=== PATIENT | male | born 1925 | race African-American/Black ===

== ENCOUNTER 2016-08-22 15:08 | Emergency (ER) | payer MEDICARE, OTHER ==
[2016-08-22] MEDS ORDERED: MECLIZINE HCL 25 MG TABLET PO ONE (15:53)
[2016-08-22 16:08] LABS: Hemoglobin 8.9 gm/dL (13.5-18.0); Mean Cell Volume 92.1 fl (78-100); Mean Corpuscular Hemoglobin 29.3 pg (27-31); Mean Corpuscular Hgb Conc 31.8 g/dl (32-36); Mean Platelet Volume 9.7 fl (6.0-9.5); Neutrophil # 5.8 K/mm3 (1.3-6.0); Neutrophil % 69.2 % (42-75.0); Platelet Count 135 K/mm3 (150-450); Red Blood Count 3.04 M/mm3 (4.7-6.0); Red Cell Distribution Width 14.5 % (11.5-14.0); White Blood Count 8.4 K/mm3 (4.0-10.5)
--- OUTSIDE RECORDS SUMMARY | 2016-08-22 16:16 | XMS REPORT | Continuity of Care Document ---
:1925 Author Organization [employer] [place] [address] Care Team Providers Name Role Phone Unavailable Primary Care Provider Unavailable Source Comments This disclosure is being made pursuant to the Smartj[employer] program and maynot contain all information available regarding this patient.[employer] Active Allergies and Adverse Reactions Not on File Current Medications Be aware that medications may not be up to date as of this document. Alwaysverify current medications with the patient. Not on file Active Problems Not on file Social History Tobacco Use Types Packs/Day Years Used Date Never Assessed Plan of Care Health Maintenance Due Date Last Done Comments Retired-Pertussis Vaccine Adult 11/02/1944 Retired-Tetanus Vaccine Adult 11[birth year]02/1944 Well Adult Visit 11/02/1977 Zoster Vaccine 60+ 1987 Retired-Pneumococcal 23 Vaccine-65+ yo 11/02/1992 Retired-INFLUENZA VACCINE 12/24/2014 Results from Last 3 Months Not on file
--- OUTSIDE RECORDS SUMMARY | 2016-08-22 16:17 | XMS REPORT | Continuity of Care Document ---
:1925 Author Organization [facility] ([facility]) Address [place] [address] Phone [phone] Care Team Providers Name Role Phone Provider, No-Primary Care Primary Care Provider Unavailable Source Comments This disclosure is being made pursuant to the Care Everywhere program, applicable federal and state laws, and may not contain all informaitonavailable regarding this patient.[facility] ([facility]) Active Allergies and Adverse Reactions Allergen Noted Date Severity Reactions Comments Carbamazepine Unknown Gluten OTHER celiac sprue Phenytoin Unknown Terbinafine Unknown Current Medications Prescription Sig. Disp. Refills Start Date End Date Status hydrALAZINE 100 mg Take 100 mg by mouth Active tablet 4 times daily. insulin glargine inject 12 Units Active (LanTUS) 100 unit/mL subcutaneously at injection vial bedtime. irbesartan 300 mg Take 300 mg by mouth Active tablet daily. lidocaine (LIDODERM) 5 apply 1 Patch on the Active % patch skin daily. Apply for 12 hours and remove for 12 hours, then repeat cycle. multivitamin with Take 1 Tab by mouth Active minerals tablet daily. nitroglycerin 0.[address] 0.3 mg under Active SL tablet the tongue every 5 minutes as needed. potassium chloride 10 Take 10 mEq by mouth Active mEq XR capsule daily. atorvastatin 80 mg Take 80 mg by mouth Active tablet at bedtime. carBAMazepine Take 400 mg by mouth Active (CARBATROL) 100 mg CR at bedtime. capsule CETIRIZINE HCL Take 5 mg by mouth. Active (CETIRIZINE PO) Fluticasone Furoate use 2 Sprays into the Active (VERAMYST) 27.5 nose daily. mcg/Actuation SpSn folic acid 1 mg tablet Take 1 mg by mouth Active daily. topiramate 100 mg Take 100 mg by mouth Active tablet 2 times daily. torsemide 10 mg tablet Take 10 mg by mouth Active daily. bimatoprost (LUMIGAN) instill 1 Drop onto Active 0.03 % ophthalmic both eyes every solution evening. metoPROLol 50 mg Take 50 mg by mouth 2 Active tablet times daily. Noon and bedtime HYDROcodone-acetaminop Take 1 Tab by mouth 3 Active hen 7.5-500 mg per times daily. tablet iron polysaccharide Take 150 mg by mouth Active complex (NIFEREX) 150 daily. mg capsule ALPRAZolam 0.25 mg Take 0.25 mg by mouth Active tablet 3 times daily as needed. budesonide-formoterol Use 2 Puffs by Active (SYMBICORT) 160-4.5 inhalation 2 times mcg/Actuation inhaler daily. nitroglycerin 0.4 apply 1 Patch on the Active mg/hr patch skin daily. Remove at HS glimepiride 1 mg Take 1 mg by mouth Active tablet Every morning. albuterol (PROVENTIL Use 1-2 Puffs by Active HFA) 90 mcg/Actuation inhalation every 6 inhaler hours as needed. prednisoLONE acetate instill 1 Drop onto Active (PRED FORTE) 1 % the left eye 2 times ophthalmic suspension daily. pyridostigmine Take 1 Tab by mouth 3 90 Tab 0 08/26/2011 Active (MESTINON) 60 mg times daily. tablet Indications: Myasthenia Gravis Active Problems Problem Noted Date AORTIC SCLEROSIS 08/25/2011 Myasthenia gravis 08/25/2011 Fall 08/25/2011 HTN (hypertension) 08/25/2011 Myasthenia gravis in crisis 08/25/2011 Chronic kidney disease, stage III (moderate) 01/25/2008 Chronic kidney disease, unspecified 01/25/2008 Resolved Problems Problem Noted Date Resolved Date Myasthenia gravis in crisis 08/24/2011 08/25/2011 Immunizations Name Dates Previously Given Next Due Influenza, unspecified 02/24/2008,03/23/2006,01/23/2003 Pneumococcal, unspecified 03/23/2006,01/24/2000 Social History Tobacco Use Types Packs/Day Years Used Date Never Assessed Last Filed Vital Signs Vital Sign Reading Time Taken Blood Pressure 178/70 08/26/2011 8:00 AM CDT Pulse 62 08/26/2011 8:00 AM CDT Temperature 36.4 C (97.5 F) 08/26/2011 8:00 AM CDT Respiratory Rate 16 08/26/2011 3:15 PM CDT Height 1.753 m (5' 9") 08/25/2011 10:15 PM CDT Weight 117.5 kg (259 lb 0.7 oz) 08/26/2011 9:30 AM CDT Body Mass Index 38.24 08/26/2011 9:30 AM CDT Oxygen Saturation 100% 08/26/2011 8:00 AM CDT Plan of Care Health Maintenance Due Date Last Done Comments Hepatitis B Vaccine (1 of 3 1925 - Primary Series) Tdap Vaccine 11/02/1938 Td Vaccine 11/02/1945 Zoster Vaccine 1987 Pneumococcal Vaccine (1 of 2 11/02/1992 - PCV13) Influenza Vaccine: Seasonal 11/24/2015 02/24/2008, (#1) 03/23/2006, 01/23/2003 Lipid Disorder Screening 08/23/2016 08/24/2011, Additional history exists 04/28/2007, 10/13/2006 Results from Last 3 Months Not on file
[2016-08-22] MEDS ORDERED: MECLIZINE HCL 25 MG TABLET ONE (16:18)
[2016-08-22 16:22] LABS: Albumin * 2.9 gm/dl (3.4-5.0); Anion Gap 13.8 mmol/L (6.8-13.8); BUN/Creatinine Ratio 17.6 (9.0-21.6); Bilirubin, Total 0.2 mg/dL (0.0-1.1); Ca. Corrected For Albumin 9.1 mg/dL (8.4-10.2); Calcium * 8.5 mg/dL (7.9-10.9); Carbon Dioxide 25.7 mmol/L (24-32.6); Magnesium 1.9 mg/dL (1.2-2.8); Potassium 3.5 mmol/L (3.4-4.6); Total Protein 7.1 gm/dL (6.2-8.2)
[2016-08-22 17:09] LABS: Urine Appearance Clear; Urine Bacteria None Seen; Urine Bilirubin Negative (NEGATIVE); Urine Blood Negative /ul (NEGATIVE); Urine Color Yellow; Urine Ketone Negative (NEGATIVE); Urine Nitrite Negative (NEGATIVE); Urine Protein Negative (NEGATIVE); Urine RBC None Seen /hpf (0-5); Urine Urobilinogen Normal (NORMAL); Urine WBC None Seen /hpf (0-5)
[2016-08-22] MEDS ORDERED: NEOMY SULF/POLYMYX B SULF/HC 100 DROP BTL EACH EAR ONE (17:43)
[2016-08-22] MEDS ORDERED: NEOMY SULF/POLYMYX B SULF/HC 100 DROP BTL ONE (17:43)
--- NOTE | 2016-08-22 17:44 | ERNOTE ---
Trauma/Assault HPI - General Stated Complaint: RT EAR PAIN, DIZZINESS Time Seen by Provider: 08/22/16 15:42 Source: patient, family Exam Limitations: hard of hearing - Immun/Allergies/Home Medications Immunizations: IMMUNIZATION HX Immunizations Up to Date No History of Influenza Vaccine No Hx Pneumococcal Vaccination No Allergies/Adverse Reactions: Allergies lamotrigine [From Lamictal] Allergy (Verified 08/22/16 15:26) metronidazole [From Flagyl] Allergy (Verified 08/22/16 15:26) omeprazole [From Prilosec] Allergy (Verified 08/22/16 15:26) omeprazole magnesium [From Prilosec] Allergy (Verified 08/22/16 15:26) ranitidine HCl [From Zantac] Allergy (Verified 08/22/16 15:26) valsartan [From Diovan] Allergy (Verified 08/22/16 15:26) phenytoin sodium [From Dilantin] Adverse Reaction (Unknown, Verified 08/22/16 15 :26) phenytoin sodium extended [From Dilantin] Adverse Reaction (Unknown, Verified 15:26) terbinafine HCl [From Lamisil] Adverse Reaction (Unknown, Verified 08/22/16 15: 26) Home Medications: HOME MEDICATIONS ALPRAZolam [Xanax] 0.25 mg PO TID PRN 04/16/14 [Last Taken Unknown] Albuterol Sulfate [Ventolin Hfa] 1 puff IH Q4H PRN 04/16/14 [Last Taken Unknown] Aspirin [Aspirin Chewable] 81 mg PO DAILY 04/16/14 [Last Taken Unknown] Atorvastatin Calcium [Lipitor] 80 mg PO DAILY 04/16/14 [Last Taken Unknown] Bimatoprost [Lumigan 0.03% Ophthalmic Solution] 1 drop EACHEYE QPM 04/16/14 [ Last Taken Unknown] Calcitriol 0.25 mcg PO 3XW 04/16/14 [Last Taken Unknown] Carbamazepine [Carbatrol] 400 mg PO HS 04/16/14 [Last Taken Unknown] Cyanocobalamin [Vitamin B-12] 1,000 mcg PO DAILY 04/16/14 [Last Taken Unknown] Dorzolamide HCl [Trusopt] 1 drop EACHEYE TID 04/16/14 [Last Taken Unknown] Fluticasone Furoate [Veramyst] 2 spray NS DAILY 04/16/14 [Last Taken Unknown] Folic Acid 1 mg PO DAILY 04/16/14 [Last Taken Unknown] Hydralazine HCl 100 mg PO QID 04/16/14 [Last Taken Unknown] Hydrocodone/Acetaminophen [Hydrocodon-Acetaminoph 7.5-325] 1 tab PO TID PRN [Last Taken Unknown] Insulin Glargine,Hum.rec.anlog [Lantus Solostar] 16 unit SQ HS 04/16/14 [Last Taken Unknown] Insulin Glargine,Hum.rec.anlog [Lantus Solostar] 18 unit SQ QAM 04/16/14 [Last Taken Unknown] Ipratropium/Albuterol Sulfate [Combivent Respimat Inhal [place]] 1 puff IH QID PRN 04/16/14 [Last Taken Unknown] Latanoprost [Xalatan] 1 drop EACHEYE HS 04/16/14 [Last Taken Unknown] Metoprolol Tartrate [Lopressor] 25 mg PO BID 04/16/14 [Last Taken Unknown] Multivitamin [Multi-Vitamin Daily] 1 each PO DAILY 04/16/14 [Last Taken Unknown] Nitroglycerin [Nitroglycerin Patch] 1 each TD QAM 04/16/14 [Last Taken Unknown] Pyridostigmine [place] [Mestinon] 60 mg PO TID 04/16/14 [Last Taken Unknown] Terazosin HCl 10 mg PO HS 04/16/14 [Last Taken Unknown] Topiramate [Topamax] 37.5 mg PO BID 04/16/14 [Last Taken Unknown] Acetaminophen [Tylenol] 650 mg PO Q8H PRN 30 Days 04/23/14 [Last Taken Unknown] Bisacodyl [Dulcolax] 10 mg PO DAILY PRN #30 tablet 04/23/14 [Last Taken Unknown] Budesonide/Formoterol Fumarate [Symbicort 160-4.5 Mcg Inhaler] 2 puff IH BID #0 04/23/14 [Last Taken Unknown] Cholecalciferol (Vitamin D3) [Vitamin D3] 1,000 unit PO DAILY #30 capsule [Last Taken Unknown] Furosemide [Lasix] 40 mg PO DAILY@1200 #30 tablet 04/23/14 [Last Taken Unknown] Insulin Lispro [Humalog] 5 units SC AC #2 vial 04/23/14 [Last Taken Unknown] Lactobacillus Acidophilus [Bacid] 1 cap PO BID 30 Days 04/23/14 [Last Taken Unknown] Mineral Oil/Petrolatum,White [Eucerin] 1 appl TP BID 30 Days 04/23/14 [Last Taken Unknown] Nystatin [Mycostatin Powder] 1 appl TP TID 30 Days 04/23/14 [Last Taken Unknown] Potassium Chloride [Klor-Con 10] 10 meq PO DAILY #0 04/23/14 [Last Taken Unknown] Lisinopril [Prinivil] PO DAILY 08/22/16 [Last Taken Unknown] Meclizine HCl [Antivert] 25 mg PO TID PRN #20 tablet 08/22/16 [Last Taken Unknown] - History of Present Illness Narrative: Patient comes in for pain in the right ear from wax accumulation, chronic dizziness and numbness in his feet which are causing him to lose his balance and fall occasionally. The right ear pain and the wax had been ongoing for perhaps a month and he is trying to clean the ears out at home without success. Location Occurred: Reports: home Pain Location: Reports: other - right ear Method of Injury: Reports: fall - chronic falls from numbness in both feet Severity: mild Loss of Consciousness: Reports: no loss of consciousness Review of Systems - Review of Systems Constitutional: Present: See HPI EYE: Present: no symptoms reported ENT: Present: ear pain Respiratory: Present: no symptoms reported Cardiology: Present: no symptoms reported Gastrointestinal/Abdominal: Present: no symptoms reported Genitourinary: Present: no symptoms reported Musculoskeletal: Present: no symptoms reported Skin: Present: no symptoms reported Neurological: Present: no symptoms reported Endocrine: Present: no symptoms reported Hematologic/Lymphatic: Present: no symptoms reported Psych: Present: no symptoms reported - Patient's Past Medical History Patient History - Medical: Diabetes Type 1, Obesity, Renal Failure, Other - suspected diabetic neuropathy Patient History - Cardiac/Respiratory: CHF Patient History - Cancer: No Hx of Cancer Patient History - Surgical Procedures: Appendectomy, Cardiac stent Patient History - Other: None - Social History Living Situations: home Abuse History: No History of abuse Psych History: No pertinent hx Smoking Status: Never smoker Have you smoked in the past 12 months: No Alcohol Use: none Drug Use: none - Immunizations Immunizations Up to Date: No Hx Pneumococcal Vaccination: No History of Influenza Vaccine: No Physical Exam - Physical Exam General Appearance: Present: wd/wn, alert, mild distress Eye Exam: Normal inspection: bilateral, PERRL: bilateral Ears, Nose, Throat: Present: hearing decreased, cerumen impaction - primarily on the right hand side, normal pharynx Neck: Present: normal inspection, nontender Respiratory: Present: no respiratory distress, normal breath sounds, no accessory muscle use, chest nontender, lungs clear Cardiovascular/Chest: Present: regular rate, rhythm, no murmur, normal peripheral pulses Gastrointestinal/Abdominal: Present: normal bowel sounds, nontender, nondistended, soft, no organomegaly Rectal Exam: Present: deferred Back Exam: Present: normal inspection, normal range of motion Extremity Exam: Present: normal inspection, non-tender, no edema, normal range of motion Neurological Exam: Present: alert, oriented, normal mood/affect, other - numbness to both feet Skin Exam: Present: normal color, warm/dry Lymphatic Exam: Present: no adenopathy ED Progress - Results and Orders Patient's Lab Results:: I have reviewed the patient's lab results. - Vital Signs Patient's Vital Signs:: I have reviewed the patient's vital signs. Vital Signs: Vital Signs 08/22/16 08/22/16 15:19 16:43 Temperature 36.9 C Pulse Rate 65 64 Respiratory 16 Rate Blood Pressure 175/66 O2 Sat by Pulse 95 Oximetry - X-Ray X-Ray #1 X-Ray: chest Interpretation: Reviewed by me - CT/Ultrasound CT/Ultrasound Narrative: Head CT results reviewed - Progress/Reassessment Chief Complaint: Fall Progress:: Improved Plan - Plan Plan: The extensive cerumen impaction on the right-hand side and lesser cerumen impaction on the left side were both removed using water and hydrogen peroxide irrigation. Patient was given 25 mg of Antivert which helped the dizziness to a certain degree. I suspect that the cerumen impaction partially responsible for some of the dizziness that the patient was having. Patient appears to have diabetic neuropathy and I suspect this is at the heart of his frequent falls. I will refer the patient got back to Dr. Call for the management of the diabetic neuropathy. Departure Clinical Impression: Impacted cerumen of both ears, Vertigo Diabetic neuropathy Qualifiers: Diabetes mellitus type: type 2 Diabetes mellitus complication detail: diabetic mononeuropathy Qualified Code(s): E11.41 - Type 2 diabetes mellitus with diabetic mononeuropathy - Departure Disposition: Home self-care Condition: Good Instructions: Diabetic Neuropathy, Earwax Buildup, Vertigo, Qive-me-Wbio Prescriptions: Meclizine HCl [Antivert] 25 mg PO TID PRN #20 tablet PRN Reason: Vertigo
[2016-08-22 18:00] VITALS: BP 167/69
== END 2016-08-22 18:15 | disposition home or self-care (01) ==
LOC: ER 15:08
PROC: 3E1B78Z Irrigation of Ear using Irrigating Substance, Via Natural or Artificial Opening (ICD-10-PCS; principal; 2016-08-22)
PROC: 3E1B78Z Irrigation of Ear using Irrigating Substance, Via Natural or Artificial Opening (ICD-10-PCS; 2016-08-22)
DX: H61.23 Impacted cerumen, bilateral (principal); R42 Dizziness and giddiness; E11.41 Type 2 diabetes mellitus with diabetic mononeuropathy; N19 Unspecified kidney failure; I50.9 Heart failure, unspecified

== ENCOUNTER 2016-09-27 18:12 | Inpatient (IN) | payer MEDICARE, OTHER ==
--- NOTE | 2016-09-27 18:31 | ERNOTE ---
Neuro HPI ER Record Presenting Symptoms: weakness Time Seen by Provider: 09/27/16 18:22 Source: EMR, RN/MD Exam Limitations: clinical condition - pt is not verbal Immunizations: IMMUNIZATION HX Immunizations Up to Date Yes History of Influenza Vaccine Yes Hx Pneumococcal Vaccination Yes Allergies/Adverse Reactions: Allergies Allergy/AdvReac Type Severity Reaction Status Date / Time lamotrigine [From Lamictal] Allergy Verified 08/22/16 15:26 metronidazole [From Flagyl] Allergy Verified 08/22/16 15:26 omeprazole [From Prilosec] Allergy Verified 08/22/16 15:26 omeprazole magnesium Allergy Verified 08/22/16 15:26 [From Prilosec] ranitidine HCl [From Zantac] Allergy Verified 08/22/16 15:26 valsartan [From Diovan] Allergy Verified 08/22/16 15:26 phenytoin sodium AdvReac Unknown Verified 08/22/16 15:26 [From Dilantin] phenytoin sodium extended AdvReac Unknown Verified 08/22/16 15:26 [From Dilantin] terbinafine HCl AdvReac Unknown Verified 08/22/16 15:26 [From Lamisil] Home Medications: HOME MEDICATIONS ALPRAZolam [Xanax] 0.25 mg PO TID PRN 04/16/14 [Last Taken Unknown] Albuterol Sulfate [Ventolin Hfa] 1 puff IH Q4H PRN 04/16/14 [Last Taken Unknown] Aspirin [Aspirin Chewable] 81 mg PO DAILY 04/16/14 [Last Taken Unknown] Atorvastatin Calcium [Lipitor] 80 mg PO DAILY 04/16/14 [Last Taken Unknown] Bimatoprost [Lumigan 0.03% Ophthalmic Solution] 1 drop EACHEYE QPM 04/16/14 [ Last Taken Unknown] Calcitriol 0.25 mcg PO 3XW 04/16/14 [Last Taken Unknown] Carbamazepine [Carbatrol] 400 mg PO HS 04/16/14 [Last Taken Unknown] Cyanocobalamin [Vitamin B-12] 1,000 mcg PO DAILY 04/16/14 [Last Taken Unknown] Dorzolamide HCl [Trusopt] 1 drop EACHEYE TID 04/16/14 [Last Taken Unknown] Fluticasone Furoate [Veramyst] 2 spray NS DAILY 04/16/14 [Last Taken Unknown] Folic Acid 1 mg PO DAILY 04/16/14 [Last Taken Unknown] Hydralazine HCl 100 mg PO QID 04/16/14 [Last Taken Unknown] Hydrocodone/Acetaminophen [Hydrocodon-Acetaminoph 7.5-325] 1 tab PO TID PRN [Last Taken Unknown] Insulin Glargine,Hum.rec.anlog [Lantus Solostar] 16 unit SQ HS 04/16/14 [Last Taken Unknown] Insulin Glargine,Hum.rec.anlog [Lantus Solostar] 18 unit SQ QAM 04/16/14 [Last Taken Unknown] Ipratropium/Albuterol Sulfate [Combivent Respimat Inhal [place]] 1 puff IH QID PRN 04/16/14 [Last Taken Unknown] Latanoprost [Xalatan] 1 drop EACHEYE HS 04/16/14 [Last Taken Unknown] Metoprolol Tartrate [Lopressor] 25 mg PO BID 04/16/14 [Last Taken Unknown] Multivitamin [Multi-Vitamin Daily] 1 each PO DAILY 04/16/14 [Last Taken Unknown] Nitroglycerin [Nitroglycerin Patch] 1 each TD QAM 04/16/14 [Last Taken Unknown] Pyridostigmine [place] [Mestinon] 60 mg PO TID 04/16/14 [Last Taken Unknown] Terazosin HCl 10 mg PO HS 04/16/14 [Last Taken Unknown] Topiramate [Topamax] 37.5 mg PO BID 04/16/14 [Last Taken Unknown] Acetaminophen [Tylenol] 650 mg PO Q8H PRN 30 Days 04/23/14 [Last Taken Unknown] Bisacodyl [Dulcolax] 10 mg PO DAILY PRN #30 tablet 04/23/14 [Last Taken Unknown] Budesonide/Formoterol Fumarate [Symbicort 160-4.5 Mcg Inhaler] 2 puff IH BID #0 04/23/14 [Last Taken Unknown] Cholecalciferol (Vitamin D3) [Vitamin D3] 1,000 unit PO DAILY #30 capsule [Last Taken Unknown] Furosemide [Lasix] 40 mg PO DAILY@1200 #30 tablet 04/23/14 [Last Taken Unknown] Insulin Lispro [Humalog] 5 units SC AC #2 vial 04/23/14 [Last Taken Unknown] Lactobacillus Acidophilus [Bacid] 1 cap PO BID 30 Days 04/23/14 [Last Taken Unknown] Mineral Oil/Petrolatum,White [Eucerin] 1 appl TP BID 30 Days 04/23/14 [Last Taken Unknown] Nystatin [Mycostatin Powder] 1 appl TP TID 30 Days 04/23/14 [Last Taken Unknown] Potassium Chloride [Klor-Con 10] 10 meq PO DAILY #0 04/23/14 [Last Taken Unknown] Lisinopril [Prinivil] PO DAILY 08/22/16 [Last Taken Unknown] Meclizine HCl [Antivert] 25 mg PO TID PRN #20 tablet 08/22/16 [Last Taken Unknown] - History of Present Illness Narrative: pt is here for altered mental status as noted by EMS who was called for a lift assist Review of Systems - Review of Systems Constitutional: Present: weakness, fatigue, malaise EYE: Present: no symptoms reported ENT: Present: no symptoms reported Respiratory: Present: no symptoms reported Cardiology: Present: no symptoms reported Gastrointestinal/Abdominal: Present: no symptoms reported Genitourinary: Present: no symptoms reported Musculoskeletal: Present: no symptoms reported Neurological: Present: other - this patient appears somnolent but I'm able to speak with him when I speak to him he opens his eyes he does mumble but he seemed very weak. He denies any complaints. - Patient's Past Medical History Patient History - Medical: Diabetes Type 1, Obesity, Renal Failure, Other Patient History - Cardiac/Respiratory: CHF Patient History - Cancer: No Hx of Cancer Patient History - Surgical Procedures: Appendectomy, Cardiac stent Patient History - Other: None - Social History Living Situations: home Abuse History: No History of abuse Psych History: No pertinent hx Smoking Status: Never smoker Alcohol Use: none Drug Use: none - Immunizations Immunizations Up to Date: Yes Hx Pneumococcal Vaccination: Yes History of Influenza Vaccine: Yes Physical Exam - Physical Exam General Appearance: Present: other - elderly male who appears lethargic and tired membranes appear slightly dry Ears, Nose, Throat: Present: other - nares are patent, oral cavity is within normal limits, he has lots of purulent material from the right ear canal. left canal is patent. Neck: Present: normal inspection Respiratory: Present: no respiratory distress, normal breath sounds, no accessory muscle use, chest nontender, lungs clear Cardiovascular/Chest: Present: regular rate, rhythm Gastrointestinal/Abdominal: Present: normal bowel sounds, nondistended, soft Extremity Exam: Present: non-tender, normal range of motion, other - pt does have 3+ pitting edema bilaterally Neurological Exam: Present: other - upon arrival this patient is somewhat somnolent however when I speak with him he opens his eyes and follows commands his GCS is 15. Skin Exam: Present: normal color, warm/dry ED Progress - Results and Orders Patient's Lab Results:: I have reviewed the patient's lab results. - Vital Signs Patient's Vital Signs:: I have reviewed the patient's vital signs. Vital Signs: Vital Signs 09/27/16 09/27/16 18:14 18:24 Temperature 37.5 C Pulse Rate 77 77 Respiratory 20 Rate Blood Pressure 136/52 O2 Sat by Pulse 93 Oximetry - EKG EKG: NSR - the old Q waves in V1 and V2 V3 these findings are consistent with the previous EKG done on this patient - X-Ray X-Ray #1 X-Ray: chest - appears typical for CHF - Progress/Reassessment Chief Complaint: Altered Mental Status Plan - Plan Plan: This patient has anemia and fatigue and CHF and a newly diagnosed right sided nasopharyngeal mass Departure Clinical Impression: Nasopharyngeal mass Altered mental status Qualifiers: Altered mental status type: unspecified Qualified Code(s): R41.82 - Altered mental status, unspecified CHF exacerbation Qualifiers: Congestive heart failure type: unspecified congestive heart failure type Qualified Code(s): I50.9 - Heart failure, unspecified - Departure Disposition: [facility] Condition: Serious
--- OUTSIDE RECORDS SUMMARY | 2016-09-27 18:40 | XMS REPORT | Continuity of Care Document ---
:1925 Author Organization [facility] ([facility]) Address [place] [address] Phone [phone] Care Team Providers Name Role Phone Provider, No-Primary Care Primary Care Provider Unavailable Source Comments This disclosure is being made pursuant to the Care Everywhere program, applicable federal and state laws, and may not contain all informaitonavailable regarding this patient.[facility] ([facility]) Active Allergies and Adverse Reactions Allergen Noted [...]
--- OUTSIDE RECORDS SUMMARY | 2016-09-27 18:40 | XMS REPORT | Continuity of Care Document ---
:1925 Author Organization [facility] [place] [address] Care Team Providers Name Role Phone Unavailable Primary Care Provider Unavailable Source Comments This disclosure is being made pursuant to the [place] program and maynot contain all information available regarding this patient.[facility] Active Allergies and Adverse Reactions Not on [...]
[2016-09-27 18:53] LABS: Mean Cell Volume 89.1 fl (78-100); Mean Corpuscular Hemoglobin 28.6 pg (27-31); Mean Corpuscular Hgb Conc 32.1 g/dl (32-36); Mean Platelet Volume 9.1 fl (6.0-9.5); Neutrophil # 9.4 K/mm3 (1.3-6.0); Neutrophil % 80.9 % (42-75.0); Platelet Count 264 K/mm3 (150-450); Red Blood Count 2.66 M/mm3 (4.7-6.0); Red Cell Distribution Width 14.4 % (11.5-14.0); White Blood Count 11.7 K/mm3 (4.0-10.5)
[2016-09-27 18:56] LABS: Hematocrit 23.7 % (42.0-52.0); Hemoglobin 7.6 gm/dL (13.5-18.0)
[2016-09-27 19:12] LABS: Troponin I Less than 0.017 ng/ml (0.00-0.10)
[2016-09-27 19:13] LABS: ALT 16 U/L (19-67); AST 17 U/L (0-48); Albumin * 2.1 gm/dl (3.4-5.0); Alkaline Phosphatase * 99 U/L (50-170); Anion Gap 14.9 mmol/L (6.8-13.8); BNP * 3146 pg/mL (5-650); BUN/Creatinine Ratio 12.9 (9.0-21.6); Bilirubin, Total 0.2 mg/dL (0.0-1.1); Blood Urea Nitrogen 26 mg/dL (6-23); Ca. Corrected For Albumin 10.1 mg/dL (8.4-10.2); Calcium * 8.9 mg/dL (7.9-10.9); Carbon Dioxide 24.7 mmol/L (24-32.6); Chloride 106 mmol/L (97-106); Glucose * 122 mg/dL (70-110); Potassium 3.6 mmol/L (3.4-4.6); Sodium 142 mmol/L (132-142); Total Protein 7.3 gm/dL (6.2-8.2)
[2016-09-27 19:17] LABS: Urine Bilirubin Negative (NEGATIVE); Urine Blood Negative /ul (NEGATIVE); Urine Ketone Negative (NEGATIVE); Urine Nitrite Negative (NEGATIVE); Urine Protein 15 mg/dL (NEGATIVE); Urine Urobilinogen Normal (NORMAL); Urine pH 6.5 pH (5.0-7.0)
[2016-09-27 19:23] LABS: Urine Appearance Clear; Urine Bacteria None Seen; Urine Color Yellow; Urine RBC None Seen /hpf (0-5); Urine WBC None Seen /hpf (0-5)
[2016-09-27 19:29] LABS: Cocaine Ur Negative (NEGATIVE); Urine Barbiturate Negative (NEGATIVE); Urine Benzodiazepines Negative (NEGATIVE); Urine Opiates Positive (NEGATIVE); Urine PCP Negative (NEGATIVE); Urine THC Negative (NEGATIVE)
[2016-09-27] MEDS ORDERED: FUROSEMIDE 10 MG/ML VIAL IV ONE ×2 (19:51→21:35)
[2016-09-27] MEDS ORDERED: FUROSEMIDE 10 MG/ML VIAL ONE ×2 (19:52→19:54)
--- OUTSIDE RECORDS SUMMARY | 2016-09-27 20:02 | XMS REPORT | Continuity of Care Document ---
:1925 Author Organization [facility] [place] [address] Care Team Providers Name Role Phone Unavailable Primary Care Provider Unavailable Source Comments This disclosure is being made pursuant to the [employer] program and maynot contain all information available regarding this patient.[facility] Active Allergies and Adverse Reactions Not on [...]
--- OUTSIDE RECORDS SUMMARY | 2016-09-27 20:02 | XMS REPORT | Continuity of Care Document ---
:1925 Author Organization [facility] ([facility]) [place] [address] Phone [phone] Care Team Providers Name Role Phone Provider, No-Primary Care Primary Care Provider Unavailable Source Comments This disclosure is being made pursuant to the Care Everywhere program, applicable federal and state laws, and may not contain all informaitonavailable regarding this patient.[facility] ([facility]) Active Allergies and Adverse Reactions Allergen [...]
--- NOTE | 2016-09-27 21:04 | HP ---
Chief Complaint - Chief Complaint Date of Service: 09/27/16 Time of Service: 21:02 Chief Complaint: ' Confusion, weakness, fall, lerthagy'. Source of HPI- Pt; unreliable, pt's spouse, ER provider report. History of Present Illness: Mr. Carver is a 89-yr-old AA Male Pt of Dr. Leonidas Beauchamp with with PMH of: Anemia, CAD, Celiac Disease, CHF, CKD Stage IV, CVA, Depression, DM II, DVT, HLD, HTN, GA, PVD, DANIEL,& Seizures. Pt appears fatigue and therefore history was provided mostly by the Pt's spouse Maddie. She reports that Mr. Carver started getting confused yesterday. Then today in the afternoon while they were both sitting in the back porch, he attempted to stand up and he fell down landing on the left side of the body. She reports that his left side of the head hit the surface. There was no loss of consciousness. The EMS was called and he was brought to the [facility] ER. Spouse reported that pt has been having increasing cough lately and has been bringing up thick yellow phlegm and has been somewhat SOB. She denies Mr. Carver having any fever or chills, N/V, Abdominal Pain or diarrhea or bloody stools and urine. Pt is chronically on 2 L of oxygen at night. During evaluation at the ED, the CXR obtained showed increased lung markings suggestive of Pulmonary Edema, whereas Pneumonia could not be excluded. His BNP was elevated at 3146 and was noted to have Peripheral BLE pitting Edema. He was also Anemic with H &H of 23.7/7.6. His BUN/CR was elevated at 26/2.02. At the time of physical exam, he appears drowsy but able to state that his ears feel like a "mortar running and hears popping and crackling sounds" states that he has an upcoming appt with ENT. Dr. Johansen this 09/29 following 3 weeks of RT side ear pain. The head CT obtained at the ED due to the fall was negative for intracranial hemorrhage and skull fracture. 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 Pt will need to be admitted inpatient for a minimum of 2 midnight due to Acute exacerbation of CHF, Pneumonia Severity Score of 3 on CURB -65, which carries a 14% mortality risk and requires consideration for inpatient treatment with possible ICU admission. - Patient's Past Medical History Patient History - Medical: Anemia, Diabetes Type 2 Insulin Dependent, Obesity, Renal Failure, Seizures, Other Patient History - Cardiac/Respiratory: Coronary Heart Disease, CHF, CVA/Stroke, Deep Vein Thrombosis, Hypertension, Hyperlipidemia, Myocardial Infarction, Peripheral Vascular Disease, Home O2 Use Patient History - Cancer: No Hx of Cancer Patient History - Surgical Procedures: Appendectomy, Cardiac stent Patient History - Other: None - Family History Father Family History - Medical: Family History - Cancer: Lung Mother Family History - Medical: , Diabetes Type 2, Renal Failure - Social History Living Situations: home Abuse History: No History of abuse Psych History: No pertinent hx Smoking Status: Never smoker Alcohol Use: none Drug Use: none - Immunizations Immunizations Up to Date: Yes Hx Pneumococcal Vaccination: Yes History of Influenza Vaccine: Yes Review Of Systems (GEN) - Review of Systems Generalized/Overall Review: Present: Weakness, Malaise, Fatigue. Absent: Chills , Fever, Diaphoresis EENTM: Present: Eye Pain, Blurred Vision, Ear Pain - RT ear pain. Respiratory: Present: Cough, Shortness of Breath Cardiac: Present: Edema. Absent: Chest Pain, Palpitations, Syncope Abdominal: Absent: Nausea, Vomiting, Hematemesis, Abdominal Pain, Constipation, Diarrhea, Bright blood from rectum Genitourinary: Absent: Urgency, Frequency, Hesitancy Musculoskeletal: Absent: Joint Pain, Back Pain, Joint Swelling Neurological: Absent: Headache, Anxiety, Depressed, Emotional Problems, Numbness Skin: Absent: Dryness, Lesions, Lumps Endocrine: Absent: Intolerance to Cold, Intolerance to Heat, Increased Thirst Misc: All systems neg except as marked Allergies/Adverse Reactions: Allergies Allergy/AdvReac Type Severity Reaction Status Date / Time lamotrigine [From Lamictal] Allergy Verified 08/22/16 15:26 metronidazole [From Flagyl] Allergy Verified 08/22/16 15:26 omeprazole [From Prilosec] Allergy Verified 08/22/16 15:26 omeprazole magnesium Allergy Verified 08/22/16 15:26 [From Prilosec] ranitidine HCl [From Zantac] Allergy Verified 08/22/16 15:26 valsartan [From Diovan] Allergy Verified 08/22/16 15:26 phenytoin sodium AdvReac Unknown Verified 08/22/16 15:26 [From Dilantin] phenytoin sodium extended AdvReac Unknown Verified 08/22/16 15:26 [From Dilantin] terbinafine HCl AdvReac Unknown Verified 08/22/16 15:26 [From Lamisil] Home Medications: HOME MEDICATIONS Albuterol Sulfate [Ventolin Hfa] 1 puff IH Q4H PRN 04/16/14 [Last Taken Unknown] Aspirin [Aspirin Chewable] 81 mg PO DAILY 04/16/14 [Last Taken Unknown] Atorvastatin Calcium [Lipitor] 80 mg PO DAILY 04/16/14 [Last Taken Unknown] Bimatoprost [Lumigan 0.03% Ophthalmic Solution] 1 drop EACHEYE QPM 04/16/14 [ Last Taken Unknown] Calcitriol 0.25 mcg PO 3XW 04/16/14 [Last Taken Unknown] Carbamazepine [Carbatrol] 100 mg PO HS 04/16/14 [Last Taken Unknown] Cyanocobalamin [Vitamin B-12] 1,000 mcg PO DAILY 04/16/14 [Last Taken Unknown] Dorzolamide HCl [Trusopt] 1 drop EACHEYE TID 04/16/14 [Last Taken Unknown] Fluticasone Furoate [Veramyst] 50 mcg NS BID 04/16/14 [Last Taken Unknown] Folic Acid 1 mg PO DAILY 04/16/14 [Last Taken Unknown] Hydralazine HCl 100 mg PO QID 04/16/14 [Last Taken Unknown] Hydrocodone/Acetaminophen [Hydrocodon-Acetaminoph 7.5-325] 1 tab PO TID PRN [Last Taken Unknown] Latanoprost [Xalatan] 1 drop EACHEYE HS 04/16/14 [Last Taken Unknown] Metoprolol Tartrate [Lopressor] 12.5 mg PO BID 04/16/14 [Last Taken Unknown] Multivitamin [Multi-Vitamin Daily] 1 each PO DAILY 04/16/14 [Last Taken Unknown] Nitroglycerin [Nitroglycerin Patch] 0.4 mg TD QAM 04/16/14 [Last Taken Unknown] Pyridostigmine [place] [Mestinon] 60 mg PO TID 04/16/14 [Last Taken Unknown] Terazosin HCl 10 mg PO HS 04/16/14 [Last Taken Unknown] Topiramate [Topamax] 37.5 mg PO BID 04/16/14 [Last Taken Unknown] Acetaminophen [Tylenol] 650 mg PO Q8H PRN 30 Days 04/23/14 [Last Taken Unknown] Bisacodyl [Dulcolax] 10 mg PO DAILY PRN #30 tablet 04/23/14 [Last Taken Unknown] Budesonide/Formoterol Fumarate [Symbicort 160-4.5 Mcg Inhaler] 2 puff IH BID #0 04/23/14 [Last Taken Unknown] Cholecalciferol (Vitamin D3) [Vitamin D3] 1,000 unit PO DAILY #30 capsule [Last Taken Unknown] Mineral Oil/Petrolatum,White [Eucerin] 1 appl TP BID 30 Days 04/23/14 [Last Taken Unknown] Nystatin [Mycostatin Powder] 1 appl TP TID 30 Days 04/23/14 [Last Taken Unknown] Potassium Chloride [Klor-Con 10] 10 meq PO DAILY #0 04/23/14 [Last Taken Unknown] Lisinopril [Prinivil] PO DAILY 08/22/16 [Last Taken Unknown] Furosemide [Lasix] 20 mg PO DAILY@1200 09/27/16 [Last Taken Unknown] Insulin Glargine,Hum.rec.anlog [Lantus Solostar] 12 unit SQ QAM 09/27/16 [Last Taken Unknown] Insulin Lispro [Humalog] 4 unit SQ QAM 09/27/16 [Last Taken Unknown] Insulin Lispro [Humalog] 5 units SC BIDAC 09/27/16 [Last Taken Unknown] Ipratropium/Albuterol Sulfate [Iprat-Albut 0.5-3(2.5) mg/3 ml] 3 ml IH BID PRN 09/27/16 [Last Taken Unknown] Ipratropium/Albuterol Sulfate [Iprat-Albut 0.5-3(2.5) mg/3 ml] 3 ml IH QID 09/27 [Last Taken Unknown] Lactobacillus Acidophilus [Bacid] 250 mg PO BID 09/27/16 [Last Taken Unknown] Exam - Exam Vital Signs: Vital Signs - Last Taken Temp 36.6 C 09/27/16 20:26 Pulse 62 09/27/16 20:26 Resp 21 H 09/27/16 20:26 BP 193/61 09/27/16 20:26 Pulse Ox 96 09/27/16 20:26 Constitutional: Present: Alert, Oriented x3, No distress, Lethargic, Elderly ENT Exam: Present: TM dull - RT ear, with effusion, 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 Neck: Present: non-tender, full range of motion, supple Back Exam: Present: normal inspection, no CVA tenderness Breasts: Present: Exam deferred Respiratory: Present: no accessory muscle use, rales Cardiovascular/Chest: Present: regular rate, rhythm, systolic murmur Abdomen: Present: Normal bowel sounds, soft, nontender /Rectal: Present: Exam deferred Extremity: Present: non-tender, lower extremity edema - 3-4 pitting edema, slow capillary refill Skin Exam: Present: cool/dry Lymphatic: Present: no adenopathy Neurologic: Present: oriented x 3, abnormal gait. Absent: aphasia, dizzy/light- headedness Appearance: Present: impaired insight Eye contact: Present: cooperative, decreased rate of speech Thoughts: Present: no apparent hallucination Diagnostic Studies: Laboratory Results WBC 11.7 K/mm3 (4.0-10.5) H 09/27/16 18:35 RBC 2.66 M/mm3 (4.7-6.0) L 09/27/16 18:35 Hgb 7.6 gm/dL (13.5-18.0) L* 09/27/16 18:35 Hct 23.7 % (42.0-52.0) L* 09/27/16 18:35 MCV 89.1 fl (78-100) 09/27/16 18:35 MCH 28.6 pg (27-31) 09/27/16 18:35 MCHC 32.1 g/dl (32-36) 09/27/16 18:35 RDW 14.4 % (11.5-14.0) H 09/27/16 18:35 Plt Count 264 K/mm3 (150-450) 09/27/16 18:35 MPV 9.1 fl (6.0-9.5) 09/27/16 18:35 Immature Gran % (Auto) 0.50 % (0.001-0.429) H 09/27/16 18:35 Immature Gran # (Auto) 0.06 K/mm3 (0.000-0.0310) H 09/27/16 18:35 Neutrophils % 80.9 % (42-75.0) H 09/27/16 18:35 Lymphocytes % 8.2 % (20-51) L 09/27/16 18:35 Monocytes % 9.7 % (0.0-9) H 09/27/16 18:35 Eosinophils % 0.4 % (0.0-3.0) 09/27/16 18:35 Basophils % 0.3 % (0.0-1.0) 09/27/16 18:35 Nucleated RBC % 0.0 k/mm3 (0-1) 09/27/16 18:35 Neutrophils # 9.4 K/mm3 (1.3-6.0) H 09/27/16 18:35 Lymphocytes # 1.0 k/mm3 (1.5-3.5) L 09/27/16 18:35 Monocytes # 1.1 k/mm3 (0.0-1.0) H 09/27/16 18:35 Eosinophils # 0.1 k/mm3 (0.0-0.7) 09/27/16 18:35 Absolute Basophils 0.0 k/mm3 (0.0-0.1) 09/27/16 18:35 Sodium 142 mmol/L (132-142) 09/27/16 18:35 Plasma Sodium 142 mmol/L (130-142) 09/27/16 18:35 Potassium 3.6 mmol/L (3.4-4.6) 09/27/16 18:35 Chloride 106 mmol/L (97-106) 09/27/16 18:35 Carbon Dioxide 24.7 mmol/L (24-32.6) 09/27/16 18:35 Anion Gap 14.9 mmol/L (6.8-13.8) H 09/27/16 18:35 BUN 26 mg/dL (6-23) H 09/27/16 18:35 Creatinine 2.02 mg/dL (0.4-1.4) H 09/27/16 18:35 Est GFR (Non-Af Amer) 40 mL/min (60-130) L 09/27/16 18:35 BUN/Creatinine Ratio 12.9 (9.0-21.6) 09/27/16 18:35 Random Glucose 122 mg/dL (70-110) H 09/27/16 18:35 Lactic Acid, Venous 1.4 mmol/L (0.4-1.9) 09/27/16 18:35 Calcium 8.9 mg/dL (7.9-10.9) 09/27/16 18:35 Calcium Adj for Albumin 10.1 mg/dL (8.4-10.2) 09/27/16 18:35 Total Bilirubin 0.2 mg/dL (0.0-1.1) 09/27/16 18:35 AST 17 U/L (0-48) 09/27/16 18:35 ALT 16 U/L (19-67) L 09/27/16 18:35 Alkaline Phosphatase 99 U/L (50-170) 09/27/16 18:35 Troponin I Less than 0.017 ng/ml (0.00-0.10) 09/27/16 18:35 B-Natriuretic Peptide 3146 pg/mL (5-650) H 09/27/16 18:35 Total Protein 7.3 gm/dL (6.2-8.2) 09/27/16 18:35 Albumin 2.1 gm/dl (3.4-5.0) L 09/27/16 18:35 Procalcitonin 0.11 ng/mL (0.05-0.50) 09/27/16 19:43 Urine Color Yellow 09/27/16 19:12 Urine Appearance Clear 09/27/16 19:12 Urine pH 6.5 pH (5.0-7.0) 09/27/16 19:12 Ur Specific [place] 1.010 SP.GR. (1.005-1.030) 09/27/16 19:12 Urine Protein 15 mg/dL (NEGATIVE) H 09/27/16 19:12 Urine Glucose (UA) Negative mg/dL (NEGATIVE) 09/27/16 19:12 Urine Ketones Negative mg/dL (NEGATIVE) 09/27/16 19:12 Urine Blood Negative /ul (NEGATIVE) 09/27/16 19:12 Urine Nitrate Negative (NEGATIVE) 09/27/16 19:12 Urine Bilirubin Negative mg/dl (NEGATIVE) 09/27/16 19:12 Prot Sulfosalicylic Acd Negative mg/dL (0) 09/27/16 19:12 Urine Urobilinogen Normal EU/dl (NORMAL) 09/27/16 19:12 Ur Leukocyte Esterase Negative /ul (NEGATIVE) 09/27/16 19:12 Urine RBC None seen /hpf (0-5) 09/27/16 19:12 Urine WBC None seen /hpf (0-5) 09/27/16 19:12 Ur Epithelial Cells None seen /hpf (0-5) 09/27/16 19:12 Urine Bacteria None seen (NONE) 09/27/16 19:12 Urine Culture Comments Culture to follow 09/27/16 19:12 Urine Opiates Screen Positive (NEGATIVE) H 09/27/16 19:12 Barbiturate Screen Negative (NEGATIVE) 09/27/16 19:12 Ur Phencyclidine Scrn Negative (NEGATIVE) 09/27/16 19:12 Urine Amphetamine Negative (NEGATIVE) 09/27/16 19:12 U Benzodiazepines Scrn Negative (NEGATIVE) 09/27/16 19:12 Urine Cocaine Screen Negative (NEGATIVE) 09/27/16 19:12 Urine Marijuana (THC) Negative (NEGATIVE) 09/27/16 19:12 Blood Type O Positive 09/27/16 19:43 Antibody Screen Negative 09/27/16 19:43 Assessment/Plan - Assessment/Plan (1) Pneumonia Assessment: Mr Carver was reported to have some confusion, increasing cough and able to bring up thick yellow-phlegm and had SOB. He also fell at home. The CXR showed increasing interstitial Lung marking which could be suggestive of Pulmonary Edema, but Pneumonia could not be excluded. His WBC, sightly elevated at 11.7 with a Left shift. Due to his advanced age, chronic comorbidities involving: renal disease, DM II, Recent antibiotic use ( Augmentin for RT ear pain), it would be beneficial to treat him for Pneumonia as presentation of illness can be subtle nilesh. in the elderly- weakness, confusion, falls. Will cover him with Rocephin and Azythromycin. Blood & Sputum cultures pending. Check Strep.Pneumo AG and legionella AG urine. CBC in am. Problem: Acute (2) Acute exacerbation of CHF (congestive heart failure) Assessment: Pt reported Coughing, SOB, fatigue and noted to have Ever Pitting edema of + 3- 4. His BNP was elevated at 3146 and the CXR findings suggested Pulmonary Edema. Given 40 mg Lasix IV at the ED. Will require additional IV diuretics and therefore will add Lasix 80mg & Metolazone 5 mg po once. Will need Alberts for accurate I/O as he's incontinent. Monitor I/Os, Weight, Serum electrolytes, BUN/ CR. Will adjust dose daily based on fluid volume status and kidney function. Problem: Acute (3) Anemia Assessment: His H&H noted to be 23.7/7.6. There is no sign of blood loss but will check occult blood to ensure the cause is not related to GI Bleed. He could be developing Anemia of Chronic kidney Disease which develops as CKD progresses along with decreasing creatinine clearance. Consider checking the serum Iron and Transferrin level, B12, folate, & reticulocyte count-it will help to distinguish ACD from Iron Deficiency Anemia. Will hold off any transfusion for now unless there is need to stabilize pt's condition e.g acute hemorrhage, changing V.S- hypotension, tachycardia. Problem: Chronic (4) Generalized weakness Assessment: Will involve PT/OT. Encourage ambulation. Problem: Acute (5) Nasopharyngeal mass Assessment: The ERP Spoke to the ENT () about today's CT of the head findings and he plans to see pt on an outpatient basis. Will consult him in am due to pt 's complaints of "popping and crackling sounds" in his RT ear and if he needs to continue with Ofloxacin ear drops. He has completed the 10 day course initially started on 09/16/16. Problem: Acute (6) Chronic kidney disease Assessment: BUN/CR of 26/2.01- Which is at his baseline. Problem: Chronic (7) Diabetes mellitus type 2 in obese Assessment: Stable- Continue with accucheck's screening and mealtime and long acting insulins. Problem: Chronic (8) Hypertension Assessment: Stable -on Metoprolol, Lisinopril, hydralazine. Problem: Chronic Qualifiers: Hypertension type: essential hypertension Qualified Code(s): I10 - Essential (primary) hypertension (9) Seizures Problem: Chronic (10) Sleep apnea Assessment: Will set him up with our hospital unit and reg/standard settings. Problem: Chronic (11) Middle ear effusion Assessment: Plan as above. Problem: Acute Qualifiers: Laterality: right Qualified Code(s): H65.91 - Unspecified nonsuppurative otitis media, right ear
[2016-09-27] MEDS ORDERED: METOLAZONE 5 MG TABLET PO ONE (21:35)
[2016-09-27] MEDS ORDERED: ALBUTEROL SULFATE 200 PUFF INHALER IH PRN (23:50)
[2016-09-27] MEDS ORDERED: BISACODYL 5 MG TABLET.DR PO PRN (23:50)
[2016-09-28] MEDS ORDERED: hydrALAZINE HCL 25 MG TABLET ONE (01:11)
[2016-09-28] MEDS ORDERED: POTASSIUM CHLORIDE 40 MEQ/15 ML BTL PO ONE (01:12)
[2016-09-28] MEDS: METOPROLOL TARTRATE 25 MG TABLET PO SCH ×3 (01:19→20:08)
[2016-09-28] MEDS: hydrALAZINE HCL 50 MG TABLET PO SCH ×5 (01:22→20:06)
[2016-09-28] MEDS: carBAMazepine 100 MG TAB.CHEW PO SCH ×2 (01:22→20:08)
[2016-09-28] MEDS: TOPIRAMATE 50 MG TABLET PO SCH ×3 (01:23→20:08)
[2016-09-28] MEDS: AZITHROMYCIN 500 MG in DEXTROSE 5 % IN WATER 250 ML IV SCH ×2 (01:39)
[2016-09-28 05:34] LABS: Hematocrit 25.1 % (42.0-52.0); Mean Corpuscular Hgb Conc 31.5 g/dl (32-36); Mean Platelet Volume 9.7 fl (6.0-9.5); Neutrophil # 10.8 K/mm3 (1.3-6.0); Neutrophil % 81.9 % (42-75.0); Platelet Count 283 K/mm3 (150-450); Red Blood Count 2.82 M/mm3 (4.7-6.0); Red Cell Distribution Width 14.2 % (11.5-14.0); White Blood Count 13.2 K/mm3 (4.0-10.5)
[2016-09-28 05:47] LABS: Anion Gap 13.1 mmol/L (6.8-13.8); BUN/Creatinine Ratio 13.4 (9.0-21.6); Calcium * 8.7 mg/dL (7.9-10.9); Carbon Dioxide 25.6 mmol/L (24-32.6); Estimated Creat Clear 27.2; Potassium 3.7 mmol/L (3.4-4.6)
[2016-09-28 06:00] LABS: Hemoglobin 7.9 gm/dL (13.5-18.0)
[2016-09-28] MEDS: ALBUTEROL SULFATE/IPRATROPIUM 3 ML NEBU IH SCH ×4 (06:17→18:32)
[2016-09-28] MEDS ORDERED: ALBUTEROL SULFATE 2.5 MG/3 ML VIAL.NEB IH PRN (06:21)
[2016-09-28] MEDS ORDERED: INSULIN LISPRO 100 UNITS/ML VIAL SC SCH (07:00)
[2016-09-28] MEDS: CEFEPIME HCL 1 GM in DEXTROSE 5 % IN WATER 100 ML IV SCH ×2 (08:27)
[2016-09-28] MEDS: LISINOPRIL 10 MG TABLET PO SCH (08:30)
[2016-09-28] MEDS: LACTOBACILLUS ACIDOPHILUS 100 CAP BTL PO SCH ×2 (08:30→20:06)
[2016-09-28] MEDS: CYANOCOBALAMIN 1,000 MCG TABLET PO SCH (08:30)
[2016-09-28] MEDS: MULTIVITAMIN/IRON/FOLIC ACID 1 TAB TABLET PO SCH (08:31)
[2016-09-28] MEDS: POTASSIUM CHLORIDE 10 MEQ TABLET.SA PO SCH (08:31)
[2016-09-28] MEDS: PYRIDOSTIGMINE BROMIDE 60 MG TABLET PO SCH ×3 (08:31→16:34)
[2016-09-28] MEDS: ASPIRIN 81 MG TAB.CHEW PO SCH (08:31)
[2016-09-28] MEDS: FOLIC ACID 1 MG TABLET PO SCH (08:31)
[2016-09-28] MEDS: CHOLECALCIFEROL 1,000 UNIT CAPSULE PO SCH (08:31)
[2016-09-28] MEDS: NYSTATIN 15 APPL BTL TP SCH ×3 (08:31→16:34)
[2016-09-28] MEDS: DORZOLAMIDE HCL 100 DROP BTL EACHEYE SCH ×3 (08:32→16:35)
[2016-09-28] MEDS: MINERAL OIL/PETROLATUM,WHITE 454 APPL JAR TP SCH ×2 (08:32→20:07)
[2016-09-28] MEDS: NITROGLYCERIN 0.4 MG TD SCH (08:32)
[2016-09-28] MEDS: VERAMYST NS SCH ×2 (08:33→20:07)
--- NOTE | 2016-09-28 08:55 | PN ---
Subjective - Date and Time Seen Date: 09/28/16 Time: 08:41 Subjective Narrative: He says he is not feeling good. he thinks he had seizure because he passed out after he had a BM and hit his head. Objective - Review of Systems Generalized/Overall Review: Reports: Weakness. Denies: Chills, Fever EENTM: Reports: Ear Pain, Ear Discharge Respiratory: Denies: Cough, Shortness of Breath Cardiac: Reports: Syncope. Denies: Chest Pain, Edema, Palpitations Abdominal: Denies: Nausea, Vomiting, Abdominal Pain Genitourinary Symptoms: Denies: Urgency, Frequency Musculoskeletal Complaints: Reports: Joint Pain - Vitals Vitals: Last Vital Signs Temp 36.5 C 09/28/16 06:00 Pulse 62 09/28/16 08:30 Resp 20 09/28/16 06:27 BP 164/65 09/28/16 08:30 Pulse Ox 97 09/28/16 06:17 - Abnormal Lab Findings Abnormal Lab Findings: Abnormal Lab Results 09/28/16 09/28/16 Range/Units 05:00 05:00 WBC 13.2 H (4.0-10.5) K/mm3 RBC 2.82 L (4.7-6.0) M/mm3 Hgb 7.9 L* (13.5-18.0) gm/dL Hct 25.1 L (42.0-52.0) % MCHC 31.5 L (32-36) g/dl RDW 14.2 H (11.5-14.0) % MPV 9.7 H (6.0-9.5) fl Immature Gran % (Auto) 0.50 H (0.001-0.429) % Immature Gran # (Auto) 0.06 H (0.000-0.0310) K/mm3 Neutrophils % 81.9 H (42-75.0) % Lymphocytes % 7.2 L (20-51) % Neutrophils # 10.8 H (1.3-6.0) K/mm3 Lymphocytes # 1.0 L (1.5-3.5) k/mm3 Monocytes # 1.2 H (0.0-1.0) k/mm3 BUN 25 H (6-23) mg/dL Creatinine 1.87 H (0.4-1.4) mg/dL Est GFR (Non-Af Amer) 44 L (60-130) mL/min Random Glucose 195 H D (70-110) mg/dL - Exam Constitutional: Present: Alert, Oriented x3, Cooperative, Elderly ENT Exam: Present: hard of hearing Neck: Present: supple Breasts: Present: Exam deferred Respiratory: Present: no accessory muscle use, decreased breath sounds. Absent : No rales, No wheezing Cardiovascular/Chest: Present: regular rate, rhythm, no JVD, no murmur Abdomen: Present: soft, nontender, nondistended Extremity: Present: no calf tenderness, pedal edema Cauti Physician Documentation - Urinary Catheter Management Urethral (Alberts) Date of Insertion: 09/28/16 Time of Insertion: 21:30 Assessment/Plan - Problems/Diagnosis (1) Pneumonitis Problem: Acute Narrative: viral vs bacterial. will continue with IV antibiotics. (2) CHF exacerbation Problem: Acute Qualifiers: Congestive heart failure type: unspecified congestive heart failure type Qualified Code(s): I50.9 - Heart failure, unspecified Narrative: continue with IV lasix. will do an Echo. (3) Mastoiditis Problem: Acute Qualifiers: Laterality: right Qualified Code(s): H70.91 - Unspecified mastoiditis, right ear Narrative: with Acute on chronic OM. Will continue with IV antibiotics. Rocephin was changed to Cefpime for pseudomonal coverage as well. (4) Nasopharyngeal mass Problem: Acute Narrative: abscess vs tumor. (5) Generalized weakness Problem: Acute Narrative: will refer to PT/OT. unlikely a myasthenia or cholinergic crisis. (6) Anemia Problem: Chronic Qualifiers: Other causes of anemia: chronic disease, other (7) Chronic kidney disease Problem: Chronic Qualifiers: Chronic kidney disease stage: stage 3 (moderate) Qualified Code(s): N18.3 - Chronic kidney disease, stage 3 (moderate) (8) Anemia, chronic disease Problem: Chronic (9) CAD (coronary artery disease) Problem: Chronic (10) Chronic kidney disease, stage III (moderate) Problem: Chronic (11) Diabetes mellitus type 2 in obese Problem: Chronic (12) Hyperlipidemia Problem: Chronic Qualifiers: Hyperlipidemia type: mixed hyperlipidemia Qualified Code(s): E78.2 - Mixed hyperlipidemia (13) Hypertension Problem: Chronic Qualifiers: Hypertension type: essential hypertension Qualified Code(s): I10 - Essential (primary) hypertension (14) Obesity Problem: Chronic (15) Sleep apnea Problem: Chronic (16) Fall Problem: Acute Qualifiers: Encounter type: initial encounter Qualified Code(s): W19.XXXA - Unspecified fall, initial encounter Narrative: due to Syncope , vasovagal ( after BM) vs Seizure episode.
[2016-09-28] MEDS ORDERED: FLUTICASONE/SALMETEROL 14 PUFF DISK.W.DEV IH SCH (09:00)
[2016-09-28] MEDS ORDERED: INSULIN GLARGINE,HUM.REC.ANLOG 100 UNITS/ML VIAL SC SCH (09:00)
[2016-09-28] MEDS ORDERED: ATORVASTATIN CALCIUM 40 MG TABLET PO SCH (09:00)
[2016-09-28] MEDS: INSULIN LISPRO 100 UNITS/ML VIAL SC SCH ×3 (11:20→21:05)
[2016-09-28] MEDS ORDERED: FUROSEMIDE 20 MG TABLET PO SCH (12:00)
[2016-09-28] MEDS: HYDROcodone/ACETAMINOPHEN 1 EACH TABLET PO PRN ×2 (13:27→22:16)
[2016-09-28] MEDS: LUMIGAN 0.03% EACHEYE SCH (16:34)
[2016-09-28] MEDS ORDERED: FUROSEMIDE 20 MG TABLET PO ONE (17:45)
[2016-09-28] MEDS: FLUTICASONE/SALMETEROL 14 PUFF DISK.W.DEV IH SCH (20:06)
[2016-09-28] MEDS: ROSUVASTATIN CALCIUM 10 MG TABLET PO SCH (20:06)
[2016-09-28] MEDS: TERAZOSIN HCL 5 MG CAPSULE PO SCH (20:08)
[2016-09-28] MEDS: LATANOPROST 25 DROP BTL EACHEYE SCH (20:09)
[2016-09-28] MEDS ORDERED: AZITHROMYCIN 500 MG in DEXTROSE 5 % IN WATER 250 ML IV SCH ×2 (21:00)
[2016-09-29] MEDS: AZITHROMYCIN 500 MG in DEXTROSE 5 % IN WATER 250 ML IV SCH ×2 (00:50)
[2016-09-29] MEDS: ACETAMINOPHEN 325 MG TABLET PO PRN ×2 (04:29→16:40)
[2016-09-29 05:16] LABS: Mean Cell Volume 88.8 fl (78-100); Mean Corpuscular Hemoglobin 27.9 pg (27-31); Mean Corpuscular Hgb Conc 31.4 g/dl (32-36); Mean Platelet Volume 8.8 fl (6.0-9.5); Neutrophil # 8.5 K/mm3 (1.3-6.0); Neutrophil % 76.6 % (42-75.0); Platelet Count 252 K/mm3 (150-450); Red Blood Count 2.69 M/mm3 (4.7-6.0); Red Cell Distribution Width 14.4 % (11.5-14.0)
[2016-09-29 05:20] LABS: Hematocrit 23.9 % (42.0-52.0); Hemoglobin 7.5 gm/dL (13.5-18.0)
[2016-09-29 05:28] LABS: Anion Gap 12.3 mmol/L (6.8-13.8); Calcium * 8.6 mg/dL (7.9-10.9); Carbon Dioxide 25.1 mmol/L (24-32.6); Estimated Creat Clear 25.4; Potassium 3.4 mmol/L (3.4-4.6)
[2016-09-29] MEDS: ALBUTEROL SULFATE/IPRATROPIUM 3 ML NEBU IH SCH ×4 (06:06→18:28)
[2016-09-29] MEDS: INSULIN LISPRO 100 UNITS/ML VIAL SC SCH ×7 (07:02→20:06)
[2016-09-29] MEDS: CEFEPIME HCL 1 GM in DEXTROSE 5 % IN WATER 100 ML IV SCH ×2 (07:03)
--- NOTE | 2016-09-29 08:03 | PN ---
Subjective - Date and Time Seen Date: 09/29/16 Time: 07:55 Subjective Narrative: He says that he missed 1 day of his medications as his medicine tray was left in the kitchen and he does not go there. His complain today is that he has ear drainage and his ear is still painful. Objective - Review of Systems Generalized/Overall Review: Reports: Weakness. Denies: Chills, Fever EENTM: Reports: Ear Pain, Ear Discharge Respiratory: Reports: Shortness of Breath, Orthopnea. Denies: Cough Cardiac: Reports: Edema. Denies: Chest Pain, Palpitations Abdominal: Denies: Nausea, Vomiting Genitourinary Symptoms: Denies: Urgency, Frequency Musculoskeletal Complaints: Reports: Joint Pain Neurological: Denies: Headache - Vitals Vitals: Last Vital Signs Temp 37 C 09/29/16 07:18 Pulse 74 09/29/16 07:18 Resp 18 09/29/16 07:18 BP 165/57 09/29/16 07:18 Pulse Ox 93 09/29/16 07:18 - Abnormal Lab Findings Abnormal Lab Findings: Abnormal Lab Results 09/29/16 09/29/16 Range/Units 05:15 05:15 WBC 11.0 H (4.0-10.5) K/mm3 RBC 2.69 L (4.7-6.0) M/mm3 Hgb 7.5 L* (13.5-18.0) gm/dL Hct 23.9 L* (42.0-52.0) % MCHC 31.4 L (32-36) g/dl RDW 14.4 H (11.5-14.0) % Immature Gran % (Auto) 0.90 H (0.001-0.429) % Immature Gran # (Auto) 0.10 H (0.000-0.0310) K/mm3 Neutrophils % 76.6 H (42-75.0) % Lymphocytes % 8.2 L (20-51) % Monocytes % 10.1 H (0.0-9) % Eosinophils % 3.9 H (0.0-3.0) % Neutrophils # 8.5 H (1.3-6.0) K/mm3 Lymphocytes # 0.9 L (1.5-3.5) k/mm3 Monocytes # 1.1 H (0.0-1.0) k/mm3 BUN 32 H (6-23) mg/dL Creatinine 2.00 H (0.4-1.4) mg/dL Est GFR (Non-Af Amer) 41 L (60-130) mL/min Random Glucose 183 H (70-110) mg/dL - Exam Constitutional: Present: Alert, Oriented x3, Cooperative ENT Exam: Present: hearing grossly normal Neck: Present: supple - can almost touch his chest with is chin ( morbid obesity ) Breasts: Present: Exam deferred Respiratory: Present: decreased breath sounds, No rales, No wheezing Cardiovascular/Chest: Present: regular rate, rhythm, no JVD, no murmur Abdomen: Present: Normal bowel sounds, soft, nontender, nondistended Extremity: Present: no calf tenderness, lower extremity edema Cauti Physician Documentation - Urinary Catheter Management Urethral (Alberts) Date of Insertion: 09/28/16 Time of Insertion: 21:30 Date of Removal: 09/28/16 Time of Removal: 15:35 Assessment/Plan - Problems/Diagnosis (1) Pneumonitis Problem: Acute Narrative: continue with antibiotics. (2) CHF exacerbation Problem: Acute Qualifiers: Congestive heart failure type: unspecified congestive heart failure type Qualified Code(s): I50.9 - Heart failure, unspecified Narrative: increase lasix to 40 mg PO qd. follow up Echo. (3) Mastoiditis Problem: Acute Qualifiers: Laterality: right Qualified Code(s): H70.91 - Unspecified mastoiditis, right ear Narrative: on OM . will culture of discharge and add Vanco. he had 2 courses of PO antibiotics outpatient w/o success . will talk to ENT. (4) Nasopharyngeal mass Problem: Acute Narrative: ENT says they will see patient on outpatient basis. will talk with ENT. (5) Generalized weakness Problem: Acute Narrative: PT/OT (6) Anemia Problem: Chronic Qualifiers: Anemia type: other cause Other causes of anemia: chronic disease, other Qualified Code(s): D63.8 - Anemia in other chronic diseases classified elsewhere Narrative: will monitor. (7) Chronic kidney disease Problem: Chronic Qualifiers: Chronic kidney disease stage: stage 3 (moderate) Qualified Code(s): N18.3 - Chronic kidney disease, stage 3 (moderate) (8) Anemia, chronic disease Problem: Chronic (9) CAD (coronary artery disease) Problem: Chronic (10) Chronic kidney disease, stage III (moderate) Problem: Chronic (11) Diabetes mellitus type 2 in obese Problem: Chronic (12) Hyperlipidemia Problem: Chronic Qualifiers: Hyperlipidemia type: mixed hyperlipidemia Qualified Code(s): E78.2 - Mixed hyperlipidemia (13) Hypertension Problem: Chronic Qualifiers: Hypertension type: essential hypertension Qualified Code(s): I10 - Essential (primary) hypertension Narrative: increase lasix to 40 mg PO qd. (14) Obesity Problem: Chronic Qualifiers: Obesity type: due to excess calories Obesity severity: non-morbid Qualified Code(s): E66.09 - Other obesity due to excess calories (15) Sleep apnea Problem: Chronic Qualifiers: Sleep apnea type: unspecified type Qualified Code(s): G47.30 - Sleep apnea , unspecified (16) Fall Problem: Acute Qualifiers: Encounter type: initial encounter Qualified Code(s): W19.XXXA - Unspecified fall, initial encounter
[2016-09-29] MEDS: FLUTICASONE/SALMETEROL 14 PUFF DISK.W.DEV IH SCH ×2 (08:49→20:04)
[2016-09-29] MEDS: hydrALAZINE HCL 50 MG TABLET PO SCH ×4 (08:50→20:06)
[2016-09-29] MEDS: ASPIRIN 81 MG TAB.CHEW PO SCH (08:50)
[2016-09-29] MEDS: LACTOBACILLUS ACIDOPHILUS 100 CAP BTL PO SCH ×2 (08:50→20:04)
[2016-09-29] MEDS: CALCITRIOL 0.25 MCG CAPSULE PO SCH (08:51)
[2016-09-29] MEDS: MULTIVITAMIN/IRON/FOLIC ACID 1 TAB TABLET PO SCH (08:51)
[2016-09-29] MEDS: MINERAL OIL/PETROLATUM,WHITE 454 APPL JAR TP SCH ×2 (08:52→20:06)
[2016-09-29] MEDS: FOLIC ACID 1 MG TABLET PO SCH (08:53)
[2016-09-29] MEDS: INSULIN GLARGINE,HUM.REC.ANLOG 100 UNITS/ML VIAL SC SCH (08:53)
[2016-09-29] MEDS: POTASSIUM CHLORIDE 10 MEQ TABLET.SA PO SCH (08:53)
[2016-09-29] MEDS: METOPROLOL TARTRATE 25 MG TABLET PO SCH ×2 (08:55→20:04)
[2016-09-29] MEDS: PYRIDOSTIGMINE BROMIDE 60 MG TABLET PO SCH ×3 (08:55→16:47)
[2016-09-29] MEDS: NITROGLYCERIN 0.4 MG TD SCH (08:56)
[2016-09-29] MEDS: NYSTATIN 15 APPL BTL TP SCH ×3 (08:56→18:24)
[2016-09-29] MEDS: TOPIRAMATE 50 MG TABLET PO SCH ×2 (08:57→20:04)
[2016-09-29] MEDS: CYANOCOBALAMIN 1,000 MCG TABLET PO SCH (08:57)
[2016-09-29] MEDS: DORZOLAMIDE HCL 100 DROP BTL EACHEYE SCH ×3 (08:57→16:48)
[2016-09-29] MEDS: CHOLECALCIFEROL 1,000 UNIT CAPSULE PO SCH (08:58)
[2016-09-29] MEDS: LISINOPRIL 10 MG TABLET PO SCH (08:58)
[2016-09-29] MEDS: VERAMYST NS SCH ×2 (09:11→20:06)
[2016-09-29] MEDS: VANCOMYCIN HCL 1.25 GM in DEXTROSE 5 % IN WATER 250 ML IV SCH ×2 (09:14)
[2016-09-29] MEDS: HYDROcodone/ACETAMINOPHEN 1 EACH TABLET PO PRN (09:33)
[2016-09-29] MEDS: FUROSEMIDE 40 MG TABLET PO SCH (11:37)
[2016-09-29] MEDS: LUMIGAN 0.03% EACHEYE SCH (16:45)
[2016-09-29] MEDS: carBAMazepine 100 MG TAB.CHEW PO SCH (20:05)
[2016-09-29] MEDS: LATANOPROST 25 DROP BTL EACHEYE SCH (20:05)
[2016-09-29] MEDS: ROSUVASTATIN CALCIUM 10 MG TABLET PO SCH (20:05)
[2016-09-29] MEDS: TERAZOSIN HCL 5 MG CAPSULE PO SCH (20:06)
[2016-09-29] MEDS: REMOVE PATCH 1 PATCH PATCH TP SCH (20:11)
--- NOTE | 2016-09-29 20:31 | PN ---
Progess Note - Interim Narrative: 09/29/16 20:[address] anastasiia matos. pt on cefepime. added vanco today since pt still having right ear drainage. ear culture drainage pending. i reswabbed right ear for gram stain. gram stain showed moderate wbc, no bacteria and rare yeast - however i did not swab deep into the ear canal. update dr partida (mechanical systems control engineer) regarding pt condition. will start pt on diflucan 200 mg po daily for 14 days.
[2016-09-29] MEDS ORDERED: FLUCONAZOLE 100 MG TABLET ONE (21:01)
[2016-09-29] MEDS: FLUCONAZOLE 200 MG TABLET PO SCH (21:03)
[2016-09-30] MEDS ORDERED: ENOXAPARIN SODIUM 40 MG/0.4 ML SYRG SC SCH (02:30)
--- NOTE | 2016-09-30 02:31 | PN ---
Subjective - Date and Time Seen Date: 09/30/16 Time: 02:06 Subjective Narrative: c/o right ear pain and drainage. no cp/dyspnea. working with PT/OT. Objective Objective Narrative: prelim echo shows; ef 55% with mod vent. hypertrophy, diastolic dysfunction and RVSP 41. - Review of Systems Generalized/Overall Review: Reports: Weakness EENTM: Reports: Ear Pain, Ear Discharge Respiratory: Reports: No Symptoms Reported Cardiac: Reports: No Symptoms Reported Abdominal: Reports: No Symptoms Reported Genitourinary Symptoms: Reports: No Symptoms Reported Musculoskeletal Complaints: Reports: No Symptoms Reported Neurological: Reports: No Symptoms Reported Skin: Reports: No Symptoms Reported Endocrine: Reports: No Symptoms Reported Misc: All systems neg except as marked - Vitals Vitals: Last Vital Signs Temp 37.1 C 09/30/16 00:00 Pulse 71 09/30/16 00:00 Resp 18 09/30/16 00:00 BP 137/45 09/30/16 00:00 Pulse Ox 95 09/30/16 00:00 - Abnormal Lab Findings Abnormal Lab Findings: Abnormal Lab Results 09/29/16 09/29/16 Range/Units 05:15 05:15 WBC 11.0 H (4.0-10.5) K/mm3 RBC 2.69 L (4.7-6.0) M/mm3 Hgb 7.5 L* (13.5-18.0) gm/dL Hct 23.9 L* (42.0-52.0) % MCHC 31.4 L (32-36) g/dl RDW 14.4 H (11.5-14.0) % Immature Gran % (Auto) 0.90 H (0.001-0.429) % Immature Gran # (Auto) 0.10 H (0.000-0.0310) K/mm3 Neutrophils % 76.6 H (42-75.0) % Lymphocytes % 8.2 L (20-51) % Monocytes % 10.1 H (0.0-9) % Eosinophils % 3.9 H (0.0-3.0) % Neutrophils # 8.5 H (1.3-6.0) K/mm3 Lymphocytes # 0.9 L (1.5-3.5) k/mm3 Monocytes # 1.1 H (0.0-1.0) k/mm3 BUN 32 H (6-23) mg/dL Creatinine 2.00 H (0.4-1.4) mg/dL Est GFR (Non-Af Amer) 41 L (60-130) mL/min Random Glucose 183 H (70-110) mg/dL - Exam Constitutional: Present: Alert, Cooperative, No distress ENT Exam: Present: hard of hearing, other - purlent drainage from right ear when swabbed for gram stain Neck: Present: supple, normal inspection Breasts: Present: Exam deferred Respiratory: Present: chest non-tender, no respiratory distress, decreased breath sounds Cardiovascular/Chest: Present: regular rate, rhythm, no JVD, no murmur Abdomen: Present: soft, nontender, nondistended, obese /Rectal: Present: Exam deferred Extremity: Present: non-tender, no pedal edema Skin Exam: Present: normal color, warm/dry, no cyanosis Cauti Physician Documentation - Urinary Catheter Management Urethral ([place]) Date of Insertion: 09/28/16 Time of Insertion: 21:30 Date of Removal: 09/28/16 Time of Removal: 15:35 Assessment/Plan Plan Narrative: Pneumonitis - current antibiotics - azithromycin 500 mg iv daily - Day #3 - cefepimine 1 gm iv daily - Day #3 - Duoneb treatments - incentive spirometer q1h while awake Mastoiditis - ear culture pending - Current antibiotics - Cefipime 1 gm iv daily - Day #3 - Vanco 1.25 gm iv daily - Day #2 - pharmacy to dose. - gram stain showed: - no bacteria with mod WBCs and rare yeast - however this was NOT a deep sample into the right ear - started last night on diflucan 200 mg po daily - check labs this am. - failed 2 courses of abx treatment outpatient. CHF exac. - currently on PO lasix - daily weights - strict I&Os Nasophayrngeal mass - f/u ENT outpt. generalized weakness - PT/OT ordered - encourage ambulation Chronic anemia - stable - monitor labs CKD, stage 3 - monitor labs Diabetes - accu-check QID - sliding scale insulin as needed HTN - vital signs q 4 hours Fall - working with PT/OT Code Status: DNR VTE: lovenox gi proph: protonix po. - Problems/Diagnosis (1) CHF exacerbation Problem: Acute Qualifiers: Congestive heart failure type: unspecified congestive heart failure type Qualified Code(s): I50.9 - Heart failure, unspecified (2) Fall Problem: Acute Qualifiers: Encounter type: initial encounter Qualified Code(s): W19.XXXA - Unspecified fall, initial encounter (3) Generalized weakness Problem: Acute (4) Mastoiditis Problem: Acute Qualifiers: Laterality: right Qualified Code(s): H70.91 - Unspecified mastoiditis, right ear (5) Nasopharyngeal mass Problem: Acute (6) Pneumonitis Problem: Acute (7) Anemia Problem: Chronic Qualifiers: Anemia type: other cause Other causes of anemia: chronic disease, other Qualified Code(s): D63.8 - Anemia in other chronic diseases classified elsewhere (8) Chronic kidney disease Problem: Chronic Qualifiers: Chronic kidney disease stage: stage 3 (moderate) Qualified Code(s): N18.3 - Chronic kidney disease, stage 3 (moderate) (9) Diabetes mellitus type 2 in obese Problem: Chronic (10) Hyperlipidemia Problem: Chronic Qualifiers: Hyperlipidemia type: mixed hyperlipidemia Qualified Code(s): E78.2 - Mixed hyperlipidemia (11) Hypertension Problem: Chronic Qualifiers: Hypertension type: essential hypertension Qualified Code(s): I10 - Essential (primary) hypertension (12) Obesity Problem: Chronic Qualifiers: Obesity type: due to excess calories Obesity severity: non-morbid Qualified Code(s): E66.09 - Other obesity due to excess calories (13) Sleep apnea Problem: Chronic Qualifiers: Sleep apnea type: unspecified type Qualified Code(s): G47.30 - Sleep apnea , unspecified
[2016-09-30] MEDS: AZITHROMYCIN 500 MG in DEXTROSE 5 % IN WATER 250 ML IV SCH ×2 (02:44)
[2016-09-30] MEDS ORDERED: ENOXAPARIN SODIUM 40 MG/0.4 ML SYRG SC ONE (02:50)
[2016-09-30] MEDS: ACETAMINOPHEN 325 MG TABLET PO PRN ×2 (04:35→16:33)
[2016-09-30] MEDS: ALBUTEROL SULFATE/IPRATROPIUM 3 ML NEBU IH SCH ×4 (06:06→18:09)
[2016-09-30] MEDS: CEFEPIME HCL 1 GM in DEXTROSE 5 % IN WATER 100 ML IV SCH ×2 (06:41)
[2016-09-30] MEDS: HYDROcodone/ACETAMINOPHEN 1 EACH TABLET PO PRN (06:44)
[2016-09-30] MEDS: INSULIN LISPRO 100 UNITS/ML VIAL SC SCH ×7 (06:51→20:43)
[2016-09-30 07:03] LABS: Mean Cell Volume 87.4 fl (78-100); Mean Corpuscular Hemoglobin 27.8 pg (27-31); Mean Corpuscular Hgb Conc 31.8 g/dl (32-36); Mean Platelet Volume 9.2 fl (6.0-9.5); Neutrophil # 7.7 K/mm3 (1.3-6.0); Neutrophil % 71.7 % (42-75.0); Platelet Count 272 K/mm3 (150-450); Red Cell Distribution Width 14.3 % (11.5-14.0); White Blood Count 10.7 K/mm3 (4.0-10.5)
[2016-09-30] MEDS ORDERED: OXYMETAZOLINE HCL 150 SPRAY BTL NS ONE (07:18)
[2016-09-30 07:20] LABS: Anion Gap 11.2 mmol/L (6.8-13.8); BUN/Creatinine Ratio 16.7 (9.0-21.6); Calcium * 8.6 mg/dL (7.9-10.9); Carbon Dioxide 25.5 mmol/L (24-32.6); Estimated Creat Clear 24.3; Potassium 3.7 mmol/L (3.4-4.6)
[2016-09-30 07:30] LABS: Hematocrit 23.6 % (42.0-52.0); Hemoglobin 7.5 gm/dL (13.5-18.0)
--- NOTE | 2016-09-30 08:26 | PN ---
Progess Note - Interim Narrative: 09/30/16 08:[address] Forde. -he believes that the nasopharyngral mass is causing his ear pain but he does not believe it is a tumor but more due to inflammation from his infection. He will put ear wick and continue with ciprodex. Ear wick will pulled out by Tuesday unless it falls by itself. he also recommeds 1 dose Decadron 10 mg which will hlp with his ear pain. 09/30/16 08:26 ADDENDUM: Decadron might interact with his anticholinesterase and precipitate myasthenia crisis. Will defer order.
[2016-09-30 08:32] LABS: Iron 24 mcg/dL (35-120); Transferrin Sat. (% Sat.) 22 % (15-55)
[2016-09-30 08:36] LABS: Vitamin B12 1974 pg/mL (193-986)
[2016-09-30] MEDS: FLUTICASONE/SALMETEROL 14 PUFF DISK.W.DEV IH SCH ×2 (09:49→20:40)
[2016-09-30] MEDS: TOBRAMYCIN RIGHT EAR SCH ×2 (09:49→12:05)
[2016-09-30] MEDS: LACTOBACILLUS ACIDOPHILUS 100 CAP BTL PO SCH ×2 (09:52→20:44)
[2016-09-30] MEDS: ASPIRIN 81 MG TAB.CHEW PO SCH (09:52)
[2016-09-30] MEDS: hydrALAZINE HCL 50 MG TABLET PO SCH ×4 (09:52→20:41)
[2016-09-30] MEDS: VERAMYST NS SCH ×2 (09:53→20:42)
[2016-09-30] MEDS: MINERAL OIL/PETROLATUM,WHITE 454 APPL JAR TP SCH ×2 (09:53→20:42)
[2016-09-30] MEDS: MULTIVITAMIN/IRON/FOLIC ACID 1 TAB TABLET PO SCH (09:53)
[2016-09-30] MEDS: FOLIC ACID 1 MG TABLET PO SCH (09:53)
[2016-09-30] MEDS: INSULIN GLARGINE,HUM.REC.ANLOG 100 UNITS/ML VIAL SC SCH (09:54)
[2016-09-30] MEDS: POTASSIUM CHLORIDE 10 MEQ TABLET.SA PO SCH (09:54)
[2016-09-30] MEDS: ENOXAPARIN SODIUM 40 MG/0.4 ML SYRG SC SCH (09:55)
[2016-09-30] MEDS: METOPROLOL TARTRATE 25 MG TABLET PO SCH ×2 (09:55→20:42)
[2016-09-30] MEDS: PYRIDOSTIGMINE BROMIDE 60 MG TABLET PO SCH ×3 (09:55→16:35)
[2016-09-30] MEDS: NITROGLYCERIN 0.4 MG TD SCH (09:56)
[2016-09-30] MEDS: DORZOLAMIDE HCL 100 DROP BTL EACHEYE SCH ×3 (09:56→16:36)
[2016-09-30] MEDS: TOPIRAMATE 50 MG TABLET PO SCH ×2 (09:56→20:42)
[2016-09-30] MEDS: NYSTATIN 15 APPL BTL TP SCH ×3 (09:56→16:35)
[2016-09-30] MEDS: CYANOCOBALAMIN 1,000 MCG TABLET PO SCH (09:57)
[2016-09-30] MEDS: CHOLECALCIFEROL 1,000 UNIT CAPSULE PO SCH (09:57)
[2016-09-30] MEDS: LISINOPRIL 10 MG TABLET PO SCH (09:57)
[2016-09-30] MEDS: FLUCONAZOLE 200 MG TABLET PO SCH (10:03)
[2016-09-30] MEDS: VANCOMYCIN HCL 1.25 GM in DEXTROSE 5 % IN WATER 250 ML IV SCH ×2 (10:06)
[2016-09-30] MEDS: FUROSEMIDE 40 MG TABLET PO SCH (12:05)
[2016-09-30] MEDS: TOBRAMYCIN SULFATE/DEXAMETH 25 DROP BTL RIGHT EAR SCH ×3 (16:32→23:49)
[2016-09-30] MEDS: LUMIGAN 0.03% EACHEYE SCH (16:34)
[2016-09-30] MEDS ORDERED: IRON SUCROSE COMPLEX 500 MG in NORMAL SALINE 250 ML IV ONE (17:00)
[2016-09-30] MEDS: LATANOPROST 25 DROP BTL EACHEYE SCH (20:41)
[2016-09-30] MEDS: TERAZOSIN HCL 5 MG CAPSULE PO SCH (20:42)
[2016-09-30] MEDS: carBAMazepine 100 MG TAB.CHEW PO SCH (20:42)
[2016-09-30] MEDS: ROSUVASTATIN CALCIUM 10 MG TABLET PO SCH (20:43)
[2016-09-30] MEDS: REMOVE PATCH 1 PATCH PATCH TP SCH (20:47)
[2016-10-01] MEDS: TOBRAMYCIN SULFATE/DEXAMETH 25 DROP BTL RIGHT EAR SCH ×3 (03:57→12:38)
[2016-10-01] MEDS: ACETAMINOPHEN 325 MG TABLET PO PRN (05:08)
[2016-10-01 06:21] LABS: Mean Cell Volume 87.1 fl (78-100); Mean Corpuscular Hemoglobin 27.7 pg (27-31); Mean Corpuscular Hgb Conc 31.7 g/dl (32-36); Mean Platelet Volume 9.6 fl (6.0-9.5); Neutrophil # 5.7 K/mm3 (1.3-6.0); Neutrophil % 69.8 % (42-75.0); Platelet Count 275 K/mm3 (150-450); Red Blood Count 2.64 M/mm3 (4.7-6.0); Red Cell Distribution Width 14.2 % (11.5-14.0); White Blood Count 8.1 K/mm3 (4.0-10.5)
[2016-10-01 06:23] LABS: Hemoglobin 7.3 gm/dL (13.5-18.0)
[2016-10-01 06:34] LABS: Anion Gap 12.5 mmol/L (6.8-13.8); BUN/Creatinine Ratio 18.4 (9.0-21.6); Calcium * 8.7 mg/dL (7.9-10.9); Carbon Dioxide 25.5 mmol/L (24-32.6); Estimated Creat Clear 27.5
[2016-10-01] MEDS: INSULIN LISPRO 100 UNITS/ML VIAL SC SCH ×4 (06:54→11:53)
[2016-10-01] MEDS: HYDROcodone/ACETAMINOPHEN 1 EACH TABLET PO PRN (06:58)
--- NOTE | 2016-10-01 07:32 | DS ---
(1) Pneumonitis Diagnosis(s): likely viral Problem: Acute (2) CHF exacerbation Diagnosis(s): interval improvement. Problem: Acute Qualifiers: Congestive heart failure type: unspecified congestive heart failure type Qualified Code(s): I50.9 - Heart failure, unspecified (3) Mastoiditis Diagnosis(s): had 3-4 days of IV antibiotics . WBC back to normal. will start oral antibitoics. Problem: Acute Qualifiers: Laterality: right Qualified Code(s): H70.91 - Unspecified mastoiditis, right ear (4) Nasopharyngeal mass Diagnosis(s): will need ENT follow up for possible biopsy. Problem: Acute (5) Generalized weakness Problem: Acute (6) Anemia Diagnosis(s): iron deficicney/ACD. had IV venofer. Problem: Chronic Qualifiers: Anemia type: other cause Other causes of anemia: chronic disease, other Qualified Code(s): D63.8 - Anemia in other chronic diseases classified elsewhere (7) Chronic kidney disease Diagnosis(s): Cr imporved to 1.83 Problem: Chronic Qualifiers: Chronic kidney disease stage: stage 3 (moderate) Qualified Code(s): N18.3 - Chronic kidney disease, stage 3 (moderate) (8) Anemia, chronic disease Problem: Chronic (9) CAD (coronary artery disease) Problem: Chronic (10) Chronic kidney disease, stage III (moderate) Problem: Chronic (11) Diabetes mellitus type 2 in obese Problem: Chronic (12) Hyperlipidemia Problem: Chronic Qualifiers: Hyperlipidemia type: mixed hyperlipidemia Qualified Code(s): E78.2 - Mixed hyperlipidemia (13) Hypertension Problem: Chronic Qualifiers: Hypertension type: essential hypertension Qualified Code(s): I10 - Essential (primary) hypertension (14) Obesity Problem: Chronic Qualifiers: Obesity type: due to excess calories Obesity severity: non-morbid Qualified Code(s): E66.09 - Other obesity due to excess calories (15) Sleep apnea Problem: Chronic Qualifiers: Sleep apnea type: unspecified type Qualified Code(s): G47.30 - Sleep apnea , unspecified (16) Fall Diagnosis(s): worked with PT. Problem: Acute Qualifiers: Encounter type: initial encounter Qualified Code(s): W19.XXXA - Unspecified fall, initial encounter Description of Stay: Bienvenido Carver is a 89-yr-old AA Male, with with PMH of:Anemia, CAD, Celiac Disease, CHF, CKD Stage IV, CVA, Depression, DM II, DVT, HLD, HTN, DC, PVD, DANIEL ,& Seizures, Myasthenia Gravis. Pt appeared fatigue and therefore history was provided mostly by the Pt's spouse Maddie. She reported that Mr. Carver started getting confused yesterday. Then today in the afternoon while they were both sitting in the back porch, he attempted to stand up and he fell down landing on the left side of the body. She reports that his left side of the head hit the surface. There was no loss of consciousness. The EMS was called and he was brought to the [facility] ER. Spouse reported that pt had been having increasing cough lately and has been bringing up thick yellow phlegm and has been somewhat SOB. She denied Mr. Carver having any fever or chills, N/V, Abdominal Pain or diarrhea or bloody stools and urine. Pt is chronically on 2 L of oxygen at night. During evaluation at the ED, the CXR obtained showed increased lung markings suggestive of Pulmonary Edema, whereas Pneumonitis could not be excluded. His BNP was elevated at 3146 and was noted to have Peripheral BLE pitting Edema. He was also Anemic with H &H of 23.7/7.6. His BUN/CR was elevated at 26/2.02. At the time of physical exam, he appears drowsy but able to state that his ears feel like a "mortar running and hears popping and crackling sounds" states that he has an upcoming appt with ENT. Dr. Johansen this 09/29 following 3 weeks of RT side ear pain. The head CT obtained at the ED due to the fall was negative for intracranial hemorrhage and skull fracture. 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 Pt was admitted and was started on IV lasix and IV Rocephin and Zithromax. His Rocephin was changed to Cefepime for pseumonal coverage for his right ear infection which has failed 2 courses of Augmentin. Vanco was also added for possible MRSA for his mastoiditis/OM. Echo showed normal EF, moderate LVH, diastolic dysfucntion, RSVP 41. His CXR showed interval improvement of his pulmonary edema. ENT was consulted and he inserted a wick and continued with Ciprodex. PT had been working with him. His IV antibiotics was continued mostly for his ear infection than his pneumonitis which likely was viral. His WBC is back to normal and will discharge patient today on oral antibiotics and double his usual lasix dose. He will follow up with me on Tuesday for removal of his wick. Procedures Performed: see notes below List Procedures: nasal endoscopy and wick insertion of right ear Discharge Disposition: Home self care Disposition: Home self-care Condition: Serious Discharge Activity: Activity as tolerated Discharge Diet: Consistent carbs, Low fat/chol Additional Patient Instructions (free text): Resume [facility] at discharge. Follow up with PCP on Tuesday for removal of wick. Follow up with Dr. Call 10/04 at 2:45. Prescriptions (Any new or edited meds): Cefdinir [Omnicef] 300 mg PO Q12H #20 cap Ciprofloxacin/Hydrocortisone [Cipro Hc Otic Suspension] 3 drop RIGHT EAR QID # 10 ml Complete Home Medications List: Complete Home Medication List: Albuterol Sulfate [Ventolin Hfa] 1 puff IH Q4H PRN 04/16/14 Aspirin [Aspirin Chewable] 81 mg PO DAILY 04/16/14 Atorvastatin Calcium [Lipitor] 80 mg PO DAILY 04/16/14 Bimatoprost [Lumigan 0.03% Ophthalmic Solution] 1 drop EACHEYE QPM 04/16/14 Calcitriol 0.25 mcg PO 3XW 04/16/14 Carbamazepine [Carbatrol] 100 mg PO HS 04/16/14 Cyanocobalamin [Vitamin B-12] 1,000 mcg PO DAILY 04/16/14 Dorzolamide HCl [Trusopt] 1 drop EACHEYE TID 04/16/14 Fluticasone Furoate [Veramyst] 50 mcg NS BID 04/16/14 Folic Acid 1 mg PO DAILY 04/16/14 Hydralazine HCl 100 mg PO QID 04/16/14 Hydrocodone/Acetaminophen [Hydrocodon-Acetaminoph 7.5-325] 1 tab PO TID PRN Latanoprost [Xalatan] 1 drop EACHEYE HS 04/16/14 Metoprolol Tartrate [Lopressor] 12.5 mg PO BID 04/16/14 Multivitamin [Multi-Vitamin Daily] 1 each PO DAILY 04/16/14 Nitroglycerin [Nitroglycerin Patch] 0.4 mg TD QAM 04/16/14 Pyridostigmine [place] [Mestinon] 60 mg PO TID 04/16/14 Terazosin HCl 10 mg PO HS 04/16/14 Topiramate [Topamax] 37.5 mg PO BID 04/16/14 Acetaminophen [Tylenol] 650 mg PO Q8H PRN 30 Days 04/23/14 Bisacodyl [Dulcolax] 10 mg PO DAILY PRN #30 tablet 04/23/14 Budesonide/Formoterol Fumarate [Symbicort 160-4.5 Mcg Inhaler] 2 puff IH BID #0 04/23/14 Cholecalciferol (Vitamin D3) [Vitamin D3] 1,000 unit PO DAILY #30 capsule Mineral Oil/Petrolatum,White [Eucerin] 1 appl TP BID 30 Days 04/23/14 Nystatin [Mycostatin Powder] 1 appl TP TID 30 Days 04/23/14 Potassium Chloride [Klor-Con 10] 10 meq PO DAILY #0 04/23/14 Lisinopril [Prinivil] PO DAILY 08/22/16 Furosemide [Lasix] 20 mg PO DAILY@1200 09/27/16 Insulin Glargine,Hum.rec.anlog [Lantus Solostar] 12 unit SQ QAM 09/27/16 Insulin Lispro [Humalog Kwikpen U-100] 4 unit SQ QAM 09/27/16 Insulin Lispro [Humalog] 5 units SC BIDAC 09/27/16 Ipratropium/Albuterol Sulfate [Iprat-Albut 0.5-3(2.5) mg/3 ml] 3 ml IH BID PRN 09/27/16 Ipratropium/Albuterol Sulfate [Iprat-Albut 0.5-3(2.5) mg/3 ml] 3 ml IH QID 09/27 Lactobacillus Acidophilus [Bacid] 250 mg PO BID 09/27/16 Cefdinir [Omnicef] 300 mg PO Q12H #20 cap 10/01/16 Ciprofloxacin/Hydrocortisone [Cipro Hc Otic Suspension] 3 drop RIGHT EAR QID # 10 ml 10/01/16
[2016-10-01] MEDS: ALBUTEROL SULFATE/IPRATROPIUM 3 ML NEBU IH SCH ×3 (07:51→14:47)
[2016-10-01] MEDS: CEFEPIME HCL 1 GM in DEXTROSE 5 % IN WATER 100 ML IV SCH ×2 (08:06)
--- NOTE | 2016-10-01 08:49 | ECHO ---
This report is available in the EMR
[2016-10-01] MEDS: TOPIRAMATE 50 MG TABLET PO SCH (08:55)
[2016-10-01] MEDS: CALCITRIOL 0.25 MCG CAPSULE PO SCH (08:56)
[2016-10-01] MEDS: FLUCONAZOLE 200 MG TABLET PO SCH (08:56)
[2016-10-01] MEDS: METOPROLOL TARTRATE 25 MG TABLET PO SCH (08:56)
[2016-10-01] MEDS: hydrALAZINE HCL 50 MG TABLET PO SCH ×2 (08:56→12:38)
[2016-10-01] MEDS: FOLIC ACID 1 MG TABLET PO SCH (08:57)
[2016-10-01] MEDS: POTASSIUM CHLORIDE 10 MEQ TABLET.SA PO SCH (08:57)
[2016-10-01] MEDS: ASPIRIN 81 MG TAB.CHEW PO SCH (08:58)
[2016-10-01] MEDS: MULTIVITAMIN/IRON/FOLIC ACID 1 TAB TABLET PO SCH (08:58)
[2016-10-01] MEDS: PYRIDOSTIGMINE BROMIDE 60 MG TABLET PO SCH ×2 (08:58→12:39)
[2016-10-01] MEDS: CHOLECALCIFEROL 1,000 UNIT CAPSULE PO SCH (08:58)
[2016-10-01] MEDS: LISINOPRIL 10 MG TABLET PO SCH (08:58)
[2016-10-01] MEDS: MINERAL OIL/PETROLATUM,WHITE 454 APPL JAR TP SCH (08:59)
[2016-10-01] MEDS: NYSTATIN 15 APPL BTL TP SCH ×2 (08:59→13:59)
[2016-10-01] MEDS ORDERED: CYANOCOBALAMIN 1,000 MCG TABLET PO SCH (09:00)
[2016-10-01] MEDS: FLUTICASONE/SALMETEROL 14 PUFF DISK.W.DEV IH SCH (09:00)
[2016-10-01] MEDS: LACTOBACILLUS ACIDOPHILUS 100 CAP BTL PO SCH (09:00)
[2016-10-01] MEDS: VERAMYST NS SCH (09:02)
[2016-10-01] MEDS: NITROGLYCERIN 0.4 MG TD SCH (09:02)
[2016-10-01] MEDS: ENOXAPARIN SODIUM 40 MG/0.4 ML SYRG SC SCH (09:04)
[2016-10-01] MEDS: DORZOLAMIDE HCL 100 DROP BTL EACHEYE SCH ×2 (09:08→13:59)
[2016-10-01] MEDS: INSULIN GLARGINE,HUM.REC.ANLOG 100 UNITS/ML VIAL SC SCH (09:09)
[2016-10-01] MEDS: VANCOMYCIN HCL 1.25 GM in DEXTROSE 5 % IN WATER 250 ML IV SCH ×2 (09:12)
[2016-10-01 10:38] VITALS: BP 150/79
[2016-10-01] MEDS: FUROSEMIDE 40 MG TABLET PO SCH (11:55)
== END 2016-10-01 15:45 | disposition home health service (06) | DRG 291 ==
LOC: ER 18:12 → MS 19:56 → OBSVTOIN 20:35
PROVIDERS: ADMIT Nurse Practitioner; ATTEND Internal Medicine
PROC: 0T9B7ZZ Drainage of Bladder, Via Natural or Artificial Opening (ICD-10-PCS; principal; 2016-09-27)
PROC: B246ZZZ Ultrasonography of Right and Left Heart (ICD-10-PCS; 2016-09-28)
PROC: 0CJY8ZZ Inspection of Mouth and Throat, Via Natural or Artificial Opening Endoscopic (ICD-10-PCS; 2016-09-30)
DX: I50.31 Acute diastolic (congestive) heart failure (principal); J18.9 Pneumonia, unspecified organism; J39.2 Other diseases of pharynx; H65.91 Unspecified nonsuppurative otitis media, right ear; R53.1 Weakness; I12.9 Hypertensive chronic kidney disease with stage 1 through stage 4 chronic kidney disease, or unspecified chronic kidney disease; N18.3 Chronic kidney disease, stage 3 (moderate); E11.22 Type 2 diabetes mellitus with diabetic chronic kidney disease; D63.1 Anemia in chronic kidney disease; E78.2 Mixed hyperlipidemia; I25.10 Atherosclerotic heart disease of native coronary artery without angina pectoris; I25.2 Old myocardial infarction; Z95.5 Presence of coronary angioplasty implant and graft; Z79.4 Long term (current) use of insulin; Z79.82 Long term (current) use of aspirin
CPT/HCPCS: 36415; 51701; 70450; 71010; 71020; 80048; 80053; 80307; 81001; 82272; 82607; 82746; 83540; 83550; 83605; 83880; 84145; 84484; 85025; 86850; 86900; 87040; 87070; 87077; 87086; 87186; 87205; 87449; 93005; 93306; 94640; 96374; 97110; 97116; 97161; 97165; 97535; 99283; J1756

== ENCOUNTER 2016-10-04 11:55 | Emergency (ER) | payer MEDICARE, OTHER ==
[2016-10-04 12:30] LABS: Urine Bilirubin Negative (NEGATIVE); Urine Blood Negative /ul (NEGATIVE); Urine Ketone Negative (NEGATIVE); Urine Nitrite Negative (NEGATIVE); Urine Protein 15 mg/dL (NEGATIVE); Urine Specific Gravity <=1.005 SP.GR. (1.005-1.030); Urine Urobilinogen Normal (NORMAL)
[2016-10-04 12:43] LABS: Urine Appearance Slightly Cloudy; Urine Bacteria None Seen; Urine Color Yellow; Urine RBC None Seen /hpf (0-5); Urine WBC TRACE /hpf (0-5)
--- OUTSIDE RECORDS SUMMARY | 2016-10-04 12:55 | XMS REPORT | Continuity of Care Document ---
:1925 Author Organization [facility] [place] [place] [address] Care Team Providers Name Role Phone Unavailable Primary Care Provider Unavailable Source Comments This disclosure is being made pursuant to the [employer] program and maynot contain all information available regarding this patient.[facility] Active Allergies and Adverse Reactions Not on [...]
--- OUTSIDE RECORDS SUMMARY | 2016-10-04 12:56 | XMS REPORT | Continuity of Care Document ---
:1925 Author Organization [facility] ([facility]) Address [place] [address] Phone [phone] Care Team Providers Name Role Phone Provider, No-Primary Care Primary Care Provider Unavailable Source Comments This disclosure is being made pursuant to the Care Everywhere program, applicable federal and state laws, and may not contain all informaitonavailable regarding this patient.[facility] ([facility]) Active Allergies and Adverse Reactions Allergen [...]
[2016-10-04 13:00] LABS: Mean Corpuscular Hemoglobin 28.3 pg (27-31); Mean Corpuscular Hgb Conc 32.1 g/dl (32-36); Mean Platelet Volume 8.7 fl (6.0-9.5); Neutrophil # 4.8 K/mm3 (1.3-6.0); Platelet Count 260 K/mm3 (150-450); Red Blood Count 2.51 M/mm3 (4.7-6.0); Red Cell Distribution Width 14.5 % (11.5-14.0); White Blood Count 7.3 K/mm3 (4.0-10.5)
[2016-10-04 13:01] LABS: Hemoglobin 7.1 gm/dL (13.5-18.0)
[2016-10-04 13:02] LABS: Hematocrit 22.1 % (42.0-52.0)
[2016-10-04 13:19] LABS: ALT 35 U/L (19-67); AST 38 U/L (0-48); Albumin * 2.2 gm/dl (3.4-5.0); Alkaline Phosphatase * 141 U/L (50-170); Anion Gap 12.5 mmol/L (6.8-13.8); BUN/Creatinine Ratio 19.3 (9.0-21.6); Bilirubin, Total 0.4 mg/dL (0.0-1.1); Blood Urea Nitrogen 47 mg/dL (6-23); Ca. Corrected For Albumin 9.9 mg/dL (8.4-10.2); Calcium * 8.8 mg/dL (7.9-10.9); Carbon Dioxide 26.4 mmol/L (24-32.6); Chloride 97 mmol/L (97-106); Glucose * 158 mg/dL (70-110); Potassium 4.9 mmol/L (3.4-4.6); Sodium 131 mmol/L (132-142); Total Protein 7.2 gm/dL (6.2-8.2)
[2016-10-04 13:27] LABS: Troponin I Less than 0.017 ng/ml (0.00-0.10)
--- NOTE | 2016-10-04 16:47 | ERNOTE ---
Neuro HPI ER Record Date of Service: 10/04/16 Presenting Symptoms: confusion Time Seen by Provider: 10/04/16 12:26 Source: patient, family Exam Limitations: no limitations Immunizations: IMMUNIZATION HX Immunizations Up to Date Yes History of Influenza Vaccine Yes Hx Pneumococcal Vaccination Yes Allergies/Adverse Reactions: Allergies Allergy/AdvReac Type Severity Reaction Status Date / Time lamotrigine [From Lamictal] Allergy Verified 10/04/16 12:06 metronidazole [From Flagyl] Allergy Verified 10/04/16 12:06 omeprazole [From Prilosec] Allergy Verified 10/04/16 12:06 omeprazole magnesium Allergy Verified 10/04/16 12:06 [From Prilosec] ranitidine HCl [From Zantac] Allergy Verified 10/04/16 12:06 valsartan [From Diovan] Allergy Verified 10/04/16 12:06 phenytoin sodium AdvReac Unknown Verified 10/04/16 12:06 [From Dilantin] phenytoin sodium extended AdvReac Unknown Verified 10/04/16 12:06 [From Dilantin] terbinafine HCl AdvReac Unknown Verified 10/04/16 12:06 [From Lamisil] Home Medications: HOME MEDICATIONS Albuterol Sulfate [Ventolin Hfa] 1 puff IH Q4H PRN 04/16/14 [Last Taken Unknown] Aspirin [Aspirin Chewable] 81 mg PO DAILY 04/16/14 [Last Taken Unknown] Atorvastatin Calcium [Lipitor] 80 mg PO DAILY 04/16/14 [Last Taken Unknown] Bimatoprost [Lumigan 0.03% Ophthalmic Solution] 1 drop EACHEYE QPM 04/16/14 [ Last Taken Unknown] Calcitriol 0.25 mcg PO 3XW 04/16/14 [Last Taken Unknown] Cyanocobalamin [Vitamin B-12] 1,000 mcg PO DAILY 04/16/14 [Last Taken Unknown] Dorzolamide HCl [Trusopt] 1 drop EACHEYE TID 04/16/14 [Last Taken Unknown] Fluticasone Furoate [Veramyst] 50 mcg NS BID 04/16/14 [Last Taken Unknown] Folic Acid 1 mg PO DAILY 04/16/14 [Last Taken Unknown] Hydralazine HCl 100 mg PO QID 04/16/14 [Last Taken Unknown] Hydrocodone/Acetaminophen [Hydrocodon-Acetaminoph 7.5-325] 1 tab PO TID PRN [Last Taken Unknown] Latanoprost [Xalatan] 1 drop EACHEYE HS 04/16/14 [Last Taken Unknown] Metoprolol Tartrate [Lopressor] 12.5 mg PO BID 04/16/14 [Last Taken Unknown] Multivitamin [Multi-Vitamin Daily] 1 each PO DAILY 04/16/14 [Last Taken Unknown] Nitroglycerin [Nitroglycerin Patch] 0.4 mg TD QAM 04/16/14 [Last Taken Unknown] Pyridostigmine [place] [Mestinon] 60 mg PO TID 04/16/14 [Last Taken Unknown] Terazosin HCl 10 mg PO HS 04/16/14 [Last Taken Unknown] Topiramate [Topamax] 37.5 mg PO BID 04/16/14 [Last Taken Unknown] Acetaminophen [Tylenol] 650 mg PO Q8H PRN 30 Days 04/23/14 [Last Taken Unknown] Bisacodyl [Dulcolax] 10 mg PO DAILY PRN #30 tablet 04/23/14 [Last Taken Unknown] Budesonide/Formoterol Fumarate [Symbicort 160-4.5 Mcg Inhaler] 2 puff IH BID #0 04/23/14 [Last Taken Unknown] Cholecalciferol (Vitamin D3) [Vitamin D3] 1,000 unit PO DAILY #30 capsule [Last Taken Unknown] Mineral Oil/Petrolatum,White [Eucerin] 1 appl TP BID 30 Days 04/23/14 [Last Taken Unknown] Nystatin [Mycostatin Powder] 1 appl TP TID 30 Days 04/23/14 [Last Taken Unknown] Lisinopril [Prinivil] 5 mg PO DAILY 08/22/16 [Last Taken Unknown] Furosemide [Lasix] 20 mg PO DAILY@1200 09/27/16 [Last Taken Unknown] Insulin Glargine,Hum.rec.anlog [Lantus Solostar] 12 unit SQ QAM 09/27/16 [Last Taken Unknown] Insulin Lispro [Humalog Kwikpen U-100] 4 unit SQ QAM 09/27/16 [Last Taken Unknown] Insulin Lispro [Humalog] 5 units SC BIDAC 09/27/16 [Last Taken Unknown] Ipratropium/Albuterol Sulfate [Iprat-Albut 0.5-3(2.5) mg/3 ml] 3 ml IH BID PRN 09/27/16 [Last Taken Unknown] Ipratropium/Albuterol Sulfate [Iprat-Albut 0.5-3(2.5) mg/3 ml] 3 ml IH QID 09/27 [Last Taken Unknown] Lactobacillus Acidophilus [Bacid] 250 mg PO BID 09/27/16 [Last Taken Unknown] Cefdinir [Omnicef] 300 mg PO Q12H #20 cap 10/01/16 [Last Taken Unknown] Ciprofloxacin/Hydrocortisone [Cipro Hc Otic Suspension] 3 drop RIGHT EAR QID # 10 ml 10/01/16 [Last Taken Unknown] ALPRAZolam [Xanax] 0.25 mg PO TID PRN 10/04/16 [Last Taken Unknown] Carbamazepine [Carbatrol] 100 mg PO HS 10/04/16 [Last Taken Unknown] Carbamazepine [Carbatrol] 300 mg PO HS 10/04/16 [Last Taken Unknown] Ipratropium/Albuterol Sulfate [Combivent Respimat Inhal [place]] 1 puff IH QID 04/10 [Last Taken Unknown] Iron Polysaccharide Complex [Niferex 150] 1 cap PO DAILY 10/04/16 [Last Taken Unknown] Potassium Chloride [Klor-Con 10] 10 meq PO DAILY 10/04/16 [Last Taken Unknown] - History of Present Illness Narrative: Patient brought in by EMS. He was thought to be more confused than normal. He was just in the hospital last week and discharged Tuesday. He is on ABx. He tells me the only thing that is bothering him is his right ear which had been treated for OE. He denies focal N/T/W. Denies CP or SOB. No abdominal pain. His later arrives and feels he is back to his baseline. Onset: gone now - Character of Deficits New weakness: Present: other - no new foacl weakness Additional Deficits: Absent: cannot walk Baseline Gait: Present: uses a cane/walker Associated Symptoms: Reports: none - his wondered if he had a seizure earlier but no Sz activity noted by . Denies: fever/chills, chest pain, headache, unresponsive Prior Treament: Reports: recently hospitalized Review of Systems - Review of Systems Constitutional: Absent: fever ENT: Present: ear discharge. Absent: sore throat Respiratory: Present: other - treatment for pneumonia. Absent: shortness of breath Cardiology: Absent: chest pain Gastrointestinal/Abdominal: Absent: abdominal pain Genitourinary: Absent: dysuria Musculoskeletal: Present: other - no fall Skin: Absent: rash - Patient's Past Medical History Patient History - Medical: Anemia, Diabetes Type 2 Insulin Dependent, Obesity, Renal Failure, Seizures, Other Patient History - Cardiac/Respiratory: Coronary Heart Disease, CHF, CVA/Stroke, Deep Vein Thrombosis, Hypertension, Hyperlipidemia, Myocardial Infarction, Peripheral Vascular Disease, Home O2 Use Patient History - Cancer: No Hx of Cancer Patient History - Surgical Procedures: Appendectomy, Cardiac stent Patient History - Other: None - Family History Mother Family History - Medical: , Diabetes Type 2, Renal Failure Family History - Cardiac/Respiratory: History Unknown Family History - Cancer: History Unknown Father Family History - Medical: Family History - Cardiac/Respiratory: History Unknown Family History - Cancer: Lung - Social History Living Situations: home Abuse History: No History of abuse Psych History: No pertinent hx Alcohol Use: none Drug Use: none - Immunizations Immunizations Up to Date: Yes Hx Pneumococcal Vaccination: Yes History of Influenza Vaccine: Yes Physical Exam - Physical Exam General Appearance: Present: alert, no apparent distress Eye Exam: Normal inspection: bilateral, PERRL: bilateral Ears, Nose, Throat: Present: other - Right ear shows OE. No wick noted in place at this time. No malignant OE. Neck: Present: normal inspection Respiratory: Present: no respiratory distress, no accessory muscle use, lungs clear Cardiovascular/Chest: Present: regular rate, rhythm, normal peripheral pulses Gastrointestinal/Abdominal: Present: normal bowel sounds, nontender, soft. Absent: tenderness Back Exam: Absent: CVA tenderness (R), CVA tenderness (L) Extremity Exam: Present: other - no deformity or calf tendenress Neurological Exam: Present: alert, other - no acute unilateral focal motor or sensory deficits. Can walk with walkner. No findings of acute stroke. Skin Exam: Absent: skin rash ED Progress - Results and Orders Patient's Lab Results:: I have reviewed the patient's lab results. - Vital Signs Patient's Vital Signs:: I have reviewed the patient's vital signs. Vital Signs: Vital Signs 10/04/16 10/04/16 10/04/16 11:56 12:01 12:25 Temperature 36.8 C Pulse Rate 69 68 Respiratory 12 16 Rate Blood Pressure 172/68 139/42 132/58 O2 Sat by Pulse 96 96 Oximetry 10/04/16 10/04/16 10/04/16 12:49 13:08 13:22 Temperature Pulse Rate 65 65 63 Respiratory 16 16 14 Rate Blood Pressure 183/79 191/81 199/103 O2 Sat by Pulse 94 97 94 Oximetry 10/04/16 10/04/16 10/04/16 13:44 13:48 13:58 Temperature Pulse Rate 60 63 60 Respiratory 16 18 16 Rate Blood Pressure 142/59 148/61 128/59 O2 Sat by Pulse 96 95 95 Oximetry 10/04/16 10/04/16 10/04/16 14:08 14:42 14:44 Temperature Pulse Rate 63 63 63 Respiratory 14 17 Rate Blood Pressure 157/63 160/58 O2 Sat by Pulse 96 95 Oximetry 10/04/16 14:54 Temperature Pulse Rate 61 Respiratory 13 Rate Blood Pressure 145/53 O2 Sat by Pulse 98 Oximetry - EKG EKG: NSR EKG read: Interp. by me EKG Comments: NSR rate 66. No evidence of acute infarct or ischemic pattern. - X-Ray X-Ray #1 X-Ray: chest Interpretation: Interp. by me X-ray Comments: I reviewed official x-ray report. - Progress/Reassessment Chief Complaint: Altered Mental Status Progress Note-Subjective: 10/04/16 16:46 I disucussed the case, x-rays and labs with Dr Call regarding admission. Dr Call requests outpatient management with continued meds and an office appointment with him tomorrow. D/W patient and . Case management involved. Departure Clinical Impression: Transient confusion - Departure Disposition: Home self-care Condition: Stable Instructions: Confusion Additional Instructions: I have spoken with Dr Call, he wishes to see you in the office tomrrow. An appointment has been made for you, please be there for the appointment. Return if your condition worsens or changes in any way. Referrals: Leonidas Call MD [Staff Physician] - 10/05/16 2:15 pm
[2016-10-04 17:36] VITALS: BP 162/66
== END 2016-10-04 17:34 | disposition home or self-care (01) ==
LOC: ER 11:55
DX: R40.4 Transient alteration of awareness (principal); D64.9 Anemia, unspecified; E11.9 Type 2 diabetes mellitus without complications; Z79.4 Long term (current) use of insulin; G40.409 Other generalized epilepsy and epileptic syndromes, not intractable, without status epilepticus; I25.2 Old myocardial infarction; I50.9 Heart failure, unspecified; Z86.73 Personal history of transient ischemic attack (TIA), and cerebral infarction without residual deficits; I10 Essential (primary) hypertension; E78.5 Hyperlipidemia, unspecified

== ENCOUNTER 2016-10-05 23:51 | Emergency (ER) | payer MEDICARE, OTHER ==
--- OUTSIDE RECORDS SUMMARY | 2016-10-06 00:48 | XMS REPORT | Continuity of Care Document ---
:1925 Author Organization [facility] ? [place] [address] Care Team Providers Name Role Phone Unavailable Primary Care Provider Unavailable Source Comments This disclosure is being made pursuant to the [employer] program and maynot contain all information available regarding this patient.[facility] ? Active Allergies and Adverse Reactions Not on [...]
--- OUTSIDE RECORDS SUMMARY | 2016-10-06 00:49 | XMS REPORT | Continuity of Care Document ---
:1925 Author Organization [facility] ([facility]) Address [place] [address] Phone [phone] Care Team Providers Name Role Phone Provider, No-Primary Care Primary Care Provider Unavailable Source Comments This disclosure is being made pursuant to the Care Everywhere program, applicable federal and state laws, and may not contain all informaitonavailable regarding this patient.[facility] ([facility]) Active Allergies and Adverse Reactions Allergen [...]
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
[2016-10-06 01:50] VITALS: BP 155/64
== END 2016-10-06 02:37 | disposition home or self-care (01) ==
LOC: ER 23:51
DX: Z03.89 Encounter for observation for other suspected diseases and conditions ruled out (principal); W06.XXXA Fall from bed, initial encounter; Y92.009 Unspecified place in unspecified non-institutional (private) residence as the place of occurrence of the external cause; E11.9 Type 2 diabetes mellitus without complications; Z79.4 Long term (current) use of insulin; I10 Essential (primary) hypertension; Z86.718 Personal history of other venous thrombosis and embolism; D64.9 Anemia, unspecified; I50.9 Heart failure, unspecified; E78.5 Hyperlipidemia, unspecified; Z95.5 Presence of coronary angioplasty implant and graft

== ENCOUNTER 2016-10-08 16:11 | Inpatient (IN) | payer MEDICARE, OTHER ==
[2016-10-08 16:42] LABS: Mean Cell Volume 91.1 fl (78-100); Mean Corpuscular Hemoglobin 28.2 pg (27-31); Mean Corpuscular Hgb Conc 30.9 g/dl (32-36); Mean Platelet Volume 9.3 fl (6.0-9.5); Neutrophil # 5.4 K/mm3 (1.3-6.0); Platelet Count 248 K/mm3 (150-450); Red Blood Count 2.59 M/mm3 (4.7-6.0); Red Cell Distribution Width 15.3 % (11.5-14.0); White Blood Count 7.2 K/mm3 (4.0-10.5)
--- OUTSIDE RECORDS SUMMARY | 2016-10-08 16:46 | XMS REPORT | Continuity of Care Document ---
:1925 Author Organization [facility] [place] [address] Care Team Providers Name Role Phone Unavailable Primary Care Provider Unavailable Source Comments This disclosure is being made pursuant to the [employer] program and maynot contain all information available regarding this patient.[facility] Active Allergies and Adverse Reactions Not on [...]
--- OUTSIDE RECORDS SUMMARY | 2016-10-08 16:46 | XMS REPORT | Continuity of Care Document ---
:1925 Author Organization [facility] ([facility]) Address [place] [address] Phone [phone] Care Team Providers Name Role Phone Provider, No-Primary Care Primary Care Provider Unavailable Source Comments This disclosure is being made pursuant to the Care Everywhere program, applicable federal and state laws, and may not contain all informaitonavailable regarding this patient.[facility] ([facility]) Active Allergies and Adverse Reactions Allergen Noted [...]
[2016-10-08 16:49] LABS: Hematocrit 23.6 % (42.0-52.0); Hemoglobin 7.3 gm/dL (13.5-18.0)
[2016-10-08 16:55] LABS: Albumin * 2.4 gm/dl (3.4-5.0); Anion Gap 14.3 mmol/L (6.8-13.8); BUN/Creatinine Ratio 14.4 (9.0-21.6); Bilirubin, Total 0.2 mg/dL (0.0-1.1); Ca. Corrected For Albumin 9.7 mg/dL (8.4-10.2); Calcium * 8.7 mg/dL (7.9-10.9); Potassium 4.3 mmol/L (3.4-4.6); Total Protein 7.3 gm/dL (6.2-8.2)
[2016-10-08 17:13] LABS: CRP 3.5 mg/dL (0.0-0.9); Troponin I Less than 0.017 ng/ml (0.00-0.10)
[2016-10-08 17:21] LABS: Urine Appearance Clear; Urine Bacteria None Seen; Urine Bilirubin Negative (NEGATIVE); Urine Blood Negative /ul (NEGATIVE); Urine Color Yellow; Urine Ketone Negative (NEGATIVE); Urine Nitrite Negative (NEGATIVE); Urine Protein 15 mg/dL (NEGATIVE); Urine RBC None Seen /hpf (0-5); Urine Urobilinogen Normal (NORMAL); Urine WBC None Seen /hpf (0-5)
--- NOTE | 2016-10-08 19:30 | ERNOTE ---
Medical Problem HPI - Narrative Date of Service: 10/08/16 - General Chief Complaint: General Assessment Time Seen by Provider: 10/08/16 16:31 Source: EMS, EMS notes reviewed Exam Limitations: dementia - Immun/Allergies/Home Medications Immunizations: IMMUNIZATION HX Immunizations Up to Date Yes History of Influenza Vaccine No Hx Pneumococcal Vaccination No Allergies/Adverse Reactions: Allergies lamotrigine [From Lamictal] Allergy (Verified 10/08/16 16:24) metronidazole [From Flagyl] Allergy (Verified 10/08/16 16:24) omeprazole [From Prilosec] Allergy (Verified 10/08/16 16:24) omeprazole magnesium [From Prilosec] Allergy (Verified 10/08/16 16:24) ranitidine HCl [From Zantac] Allergy (Verified 10/08/16 16:24) valsartan [From Diovan] Allergy (Verified 10/08/16 16:24) phenytoin sodium [From Dilantin] Adverse Reaction (Unknown, Verified 10/08/16 16 :24) phenytoin sodium extended [From Dilantin] Adverse Reaction (Unknown, Verified 16:24) terbinafine HCl [From Lamisil] Adverse Reaction (Unknown, Verified 10/08/16 16: 24) Home Medications: HOME MEDICATIONS Albuterol Sulfate [Ventolin Hfa] 1 puff IH Q4H PRN 04/16/14 [Last Taken Unknown] Aspirin [Aspirin Chewable] 81 mg PO DAILY 04/16/14 [Last Taken Unknown] Atorvastatin Calcium [Lipitor] 80 mg PO DAILY 04/16/14 [Last Taken Unknown] Bimatoprost [Lumigan 0.03% Ophthalmic Solution] 1 drop EACHEYE QPM 04/16/14 [ Last Taken Unknown] Calcitriol 0.25 mcg PO 3XW 04/16/14 [Last Taken Unknown] Cyanocobalamin [Vitamin B-12] 1,000 mcg PO DAILY 04/16/14 [Last Taken Unknown] Dorzolamide HCl [Trusopt] 1 drop EACHEYE TID 04/16/14 [Last Taken Unknown] Fluticasone Furoate [Veramyst] 50 mcg NS BID 04/16/14 [Last Taken Unknown] Folic Acid 1 mg PO DAILY 04/16/14 [Last Taken Unknown] Hydralazine HCl 100 mg PO QID 04/16/14 [Last Taken Unknown] Hydrocodone/Acetaminophen [Hydrocodon-Acetaminoph 7.5-325] 1 tab PO TID PRN [Last Taken Unknown] Latanoprost [Xalatan] 1 drop EACHEYE HS 04/16/14 [Last Taken Unknown] Metoprolol Tartrate [Lopressor] 12.5 mg PO BID 04/16/14 [Last Taken Unknown] Multivitamin [Multi-Vitamin Daily] 1 each PO DAILY 04/16/14 [Last Taken Unknown] Nitroglycerin [Nitroglycerin Patch] 0.4 mg TD QAM 04/16/14 [Last Taken Unknown] Pyridostigmine [place] [Mestinon] 60 mg PO TID 04/16/14 [Last Taken Unknown] Terazosin HCl 10 mg PO HS 04/16/14 [Last Taken Unknown] Topiramate [Topamax] 37.5 mg PO BID 04/16/14 [Last Taken Unknown] Acetaminophen [Tylenol] 650 mg PO Q8H PRN 30 Days 04/23/14 [Last Taken Unknown] Bisacodyl [Dulcolax] 10 mg PO DAILY PRN #30 tablet 04/23/14 [Last Taken Unknown] Budesonide/Formoterol Fumarate [Symbicort 160-4.5 Mcg Inhaler] 2 puff IH BID #0 04/23/14 [Last Taken Unknown] Cholecalciferol (Vitamin D3) [Vitamin D3] 1,000 unit PO DAILY #30 capsule [Last Taken Unknown] Mineral Oil/Petrolatum,White [Eucerin] 1 appl TP BID 30 Days 04/23/14 [Last Taken Unknown] Nystatin [Mycostatin Powder] 1 appl TP TID 30 Days 04/23/14 [Last Taken Unknown] Lisinopril [Prinivil] 5 mg PO DAILY 08/22/16 [Last Taken Unknown] Furosemide [Lasix] 20 mg PO DAILY@1200 09/27/16 [Last Taken Unknown] Insulin Glargine,Hum.rec.anlog [Lantus Solostar] 12 unit SQ QAM 09/27/16 [Last Taken Unknown] Insulin Lispro [Humalog Kwikpen U-100] 4 unit SQ QAM 09/27/16 [Last Taken Unknown] Insulin Lispro [Humalog] 5 units SC BIDAC 09/27/16 [Last Taken Unknown] Ipratropium/Albuterol Sulfate [Iprat-Albut 0.5-3(2.5) mg/3 ml] 3 ml IH BID PRN 09/27/16 [Last Taken Unknown] Ipratropium/Albuterol Sulfate [Iprat-Albut 0.5-3(2.5) mg/3 ml] 3 ml IH QID 09/27 [Last Taken Unknown] Lactobacillus Acidophilus [Bacid] 250 mg PO BID 09/27/16 [Last Taken Unknown] Cefdinir [Omnicef] 300 mg PO Q12H #20 cap 10/01/16 [Last Taken Unknown] Ciprofloxacin/Hydrocortisone [Cipro Hc Otic Suspension] 3 drop RIGHT EAR QID # 10 ml 10/01/16 [Last Taken Unknown] ALPRAZolam [Xanax] 0.25 mg PO TID PRN 10/04/16 [Last Taken Unknown] Carbamazepine [Carbatrol] 100 mg PO HS 10/04/16 [Last Taken Unknown] Carbamazepine [Carbatrol] 300 mg PO HS 10/04/16 [Last Taken Unknown] Ipratropium/Albuterol Sulfate [Combivent Respimat Inhal [place]] 1 puff IH QID 04/10 [Last Taken Unknown] Iron Polysaccharide Complex [Niferex 150] 1 cap PO DAILY 10/04/16 [Last Taken Unknown] Potassium Chloride [Klor-Con 10] 10 meq PO DAILY 10/04/16 [Last Taken Unknown] - History of Present History Narrative: patient brout to hospital for incrreased weakness anconfusion, no reliable hx from patient, no family in attendence Timing: constant, getting worse Severity: mild Review of Systems - Narrative Narrative: unable to obtain ros due to dementia - Patient's Past Medical History Patient History - Medical: Anemia, Diabetes Type 2 Insulin Dependent, Obesity, Renal Failure, Seizures, Other Patient History - Cardiac/Respiratory: Coronary Heart Disease, CHF, CVA/Stroke, Deep Vein Thrombosis, Hypertension, Hyperlipidemia, Myocardial Infarction, Peripheral Vascular Disease, Home O2 Use Patient History - Cancer: No Hx of Cancer Patient History - Surgical Procedures: Appendectomy, Cardiac stent Patient History - Other: None - Family History Mother Family History - Medical: , Diabetes Type 2, Renal Failure Family History - Cardiac/Respiratory: History Unknown Family History - Cancer: History Unknown Father Family History - Medical: Family History - Cardiac/Respiratory: History Unknown Family History - Cancer: Lung - Social History Living Situations: home Abuse History: No History of abuse Psych History: No pertinent hx Alcohol Use: none Drug Use: none - Immunizations Immunizations Up to Date: Yes Hx Pneumococcal Vaccination: No History of Influenza Vaccine: No Physical Exam - Physical Exam General Appearance: Present: mild distress, anxious Eye Exam: Normal inspection: bilateral, PERRL: bilateral, EOMI: bilateral Ears, Nose, Throat: Present: normal ENT inspection Neck: Present: normal inspection, nontender Respiratory: Present: rales, rhonchi Cardiovascular/Chest: Present: regular rate, rhythm Peripheral Pulses: N=norm/S=strong/W=weak/B=bound/A=absent: Carotid (R): Normal , Carotid (L): Normal, Radial (R): Normal, Radial (L): Normal, Femoral (R): Normal, Femoral (L): Normal, Dorsalis-pedis (R): Normal Gastrointestinal/Abdominal: Present: normal bowel sounds, nontender, nondistended, soft, no organomegaly Male Genitals Exam: Present: normal genitalia Extremity Exam: Present: pedal edema Neurological Exam: Present: motor weakness, disoriented to person, disoriented to time, disoriented to place, disoriented to situation DTR: N=norm/NB=norm/brisk/A=abs/DD=dull/dimin/HC=hyperactive: Bicep (R): Normal , Bicep (L): Normal, Tricep (R): Normal, Tricep (L): Normal, Knee (R): Normal, Knee (L): Normal, Ankle (R): Normal, Ankle (L): Normal Skin Exam: Present: normal color, warm/dry Lymphatic Exam: Present: no adenopathy ED Progress - Results and Orders Patient's Lab Results:: I have reviewed the patient's lab results. - Vital Signs Patient's Vital Signs:: I have reviewed the patient's vital signs. Vital Signs: Vital Signs 10/08/16 10/08/16 10/08/16 16:19 16:50 17:04 Temperature 36.9 C Pulse Rate 106 H 75 75 Respiratory 19 19 24 H Rate Blood Pressure 100/58 141/62 143/62 O2 Sat by Pulse 91 93 93 Oximetry 10/08/16 10/08/16 10/08/16 17:55 18:39 18:49 Temperature Pulse Rate 68 72 67 Respiratory 17 18 18 Rate Blood Pressure 147/61 165/82 170/82 O2 Sat by Pulse 96 97 97 Oximetry - EKG EKG: NSR EKG read: Reviewed by me - Progress/Reassessment Chief Complaint: General Assessment Progress:: Unchanged - Transfer of Care Additional Notes: case discussed with oma [facility]sey park keeper-hospitalist who accepts patient for admission Plan - Plan Plan: admit to observation for anemia chf, mental status change Departure - Departure Clinical Impression: Altered mental status, CHF exacerbation Disposition: [facility] Condition: Fair
--- OUTSIDE RECORDS SUMMARY | 2016-10-08 19:34 | XMS REPORT | Continuity of Care Document ---
:1925 Author Organization [employer] [place] [address] Care Team Providers Name Role Phone Unavailable Primary Care Provider Unavailable Source Comments This disclosure is being made pursuant to the hopscout program and maynot contain all information available regarding this patient.[facility] Active Allergies and Adverse Reactions Not on [...]
--- OUTSIDE RECORDS SUMMARY | 2016-10-08 19:34 | XMS REPORT | Continuity of Care Document ---
:1925 Author Organization [facility] ([facility]) Address [place] [address] Phone [phone] Care Team Providers Name Role Phone Provider, No-Primary Care Primary Care Provider Unavailable Source Comments This disclosure is being made pursuant to the Care Everywhere program, applicable federal and state laws, and may not contain all informaitonavailable regarding this patient.[facility] ([facility]) Active Allergies and Adverse Reactions Allergen Noted [...]
[2016-10-08] MEDS ORDERED: FUROSEMIDE 10 MG/ML VIAL IV ONE ×2 (20:19→22:00)
[2016-10-08] MEDS ORDERED: METOLAZONE 5 MG TABLET PO ONE ×2 (20:19→22:00)
--- NOTE | 2016-10-08 20:27 | HP ---
Chief Complaint - Chief Complaint Date of Service: 10/08/16 Time of Service: 20:03 Chief Complaint: "Weakness, Falls". Source of HPI- Pt; unreliable, ER provider report. History of Present Illness: Mr. Carver is a 89-yr-old AA Male Pt of Dr. Leonidas Call with with PMH of: Anemia, CAD, Celiac Disease, CHF, CKD Stage IV, CVA, Depression, DM II, DVT, HLD, HTN, MD, Myasthenia Gravis, PVD, DANIEL, Osteoathritis & Seizures. History is unobtainable from the pt due to memory impairment and no family was present at bedside. Pt's spouse, Maddie, was reached by phone, who relayed that pt has been very weak lately and prior to the last hospitalization on 09/27-, he had fallen 3 times. Today, after waking up, Maddie states that he managed to walk only to the doorway and he fell forward. She states that his head hit the floor , but the only complaint he had was RT ear pain, ' which has been going on for a while.' There was no loss of consciousness with the fall. She called the EMS and he was brought to the [facility] ED. She denies Mr. Carver having Fever, chills, n /v, SOB, bloody stools & Abdominal pain. She states that his weakness is causing a lot of burden caring for him at home as she is already aging. During evaluation at the ED, the Head CT obtained did not have any acute findings involving hemorrhaging/hematoma. The CBC showed he was Anemic with Hgb of 7.3. and BUN/CR was elevated at 38/2.64.His BNP was elevated at 1574 and the CXR showed Pulmonary vascular congestion consistent with fluid overload from CHF. Pt will need to be admitted inpatient for CHF exacerbation, Anemia, Acute on Chronic Kidney disease and will need placement finding due to recurrent falls at home. - Patient's Past Medical History Patient History - Medical: Anemia, Diabetes Type 2 Insulin Dependent, Depression , Glaucoma, Obesity, Osteoarthritis, Renal Failure, Seizures, Other - Myasthenia Gravis, DVT, Patient History - Cardiac/Respiratory: Coronary Heart Disease, CHF, CVA/Stroke, Deep Vein Thrombosis, Hypertension, Hyperlipidemia, Myocardial Infarction, Peripheral Vascular Disease, Home O2 Use, CPAP/BiPAP Home Use, Sleep Apnea Patient History - Cancer: No Hx of Cancer Patient History - Surgical Procedures: Appendectomy, Cardiac stent Patient History - Other: None - Family History Mother Family History - Medical: , Diabetes Type 2, Renal Failure Family History - Cardiac/Respiratory: History Unknown Family History - Cancer: Lung Father Family History - Medical: Family History - Cancer: Lung - Social History Living Situations: home Abuse History: No History of abuse Psych History: No pertinent hx Alcohol Use: none Drug Use: none - Immunizations Immunizations Up to Date: Yes Hx Pneumococcal Vaccination: No History of Influenza Vaccine: No Review Of Systems (GEN) - Review of Systems Additional Comments: ROS unobtainable from the pt due to AMS. Immunizations: IMMUNIZATION HX Immunizations Up to Date Yes History of Influenza Vaccine No Hx Pneumococcal Vaccination No Allergies/Adverse Reactions: Allergies Allergy/AdvReac Type Severity Reaction Status Date / Time lamotrigine [From Lamictal] Allergy Verified 10/08/16 16:24 metronidazole [From Flagyl] Allergy Verified 10/08/16 16:24 omeprazole [From Prilosec] Allergy Verified 10/08/16 16:24 omeprazole magnesium Allergy Verified 10/08/16 16:24 [From Prilosec] ranitidine HCl [From Zantac] Allergy Verified 10/08/16 16:24 valsartan [From Diovan] Allergy Verified 10/08/16 16:24 phenytoin sodium AdvReac Unknown Verified 10/08/16 16:24 [From Dilantin] phenytoin sodium extended AdvReac Unknown Verified 10/08/16 16:24 [From Dilantin] terbinafine HCl AdvReac Unknown Verified 10/08/16 16:24 [From Lamisil] Home Medications: HOME MEDICATIONS Albuterol Sulfate [Ventolin Hfa] 1 puff IH Q4H PRN 04/16/14 [Last Taken Unknown] Aspirin [Aspirin Chewable] 81 mg PO DAILY 04/16/14 [Last Taken Unknown] Atorvastatin Calcium [Lipitor] 80 mg PO DAILY 04/16/14 [Last Taken Unknown] Bimatoprost [Lumigan 0.03% Ophthalmic Solution] 1 drop EACHEYE QPM 04/16/14 [ Last Taken Unknown] Calcitriol 0.25 mcg PO 3XW 04/16/14 [Last Taken Unknown] Dorzolamide HCl [Trusopt] 1 drop EACHEYE TID 04/16/14 [Last Taken Unknown] Fluticasone Furoate [Veramyst] 50 mcg NS BID 04/16/14 [Last Taken Unknown] Folic Acid 1 mg PO DAILY 04/16/14 [Last Taken Unknown] Hydrocodone/Acetaminophen [Hydrocodon-Acetaminoph 7.5-325] 1 tab PO TID PRN [Last Taken Unknown] Latanoprost [Xalatan] 1 drop EACHEYE HS 04/16/14 [Last Taken Unknown] Metoprolol Tartrate [Lopressor] 12.5 mg PO BID 04/16/14 [Last Taken Unknown] Multivitamin [Multi-Vitamin Daily] 1 each PO DAILY 04/16/14 [Last Taken Unknown] Nitroglycerin [Nitroglycerin Patch] 0.4 mg TD QAM 04/16/14 [Last Taken Unknown] Pyridostigmine [place] [Mestinon] 60 mg PO TID 04/16/14 [Last Taken Unknown] Terazosin HCl 10 mg PO HS 04/16/14 [Last Taken Unknown] Topiramate [Topamax] 50 mg PO BID 04/16/14 [Last Taken Unknown] Bisacodyl [Dulcolax] 10 mg PO DAILY PRN #30 tablet 04/23/14 [Last Taken Unknown] Cholecalciferol (Vitamin D3) [Vitamin D3] 1,000 unit PO DAILY #30 capsule [Last Taken Unknown] Mineral Oil/Petrolatum,White [Eucerin] 1 appl TP BID 30 Days 04/23/14 [Last Taken Unknown] Furosemide [Lasix] 20 mg PO DAILY@1200 09/27/16 [Last Taken Unknown] Insulin Glargine,Hum.rec.anlog [Lantus Solostar] 12 unit SQ QAM 09/27/16 [Last Taken Unknown] Insulin Lispro [Humalog Kwikpen U-100] 4 unit SQ QAM 09/27/16 [Last Taken Unknown] Insulin Lispro [Humalog] 5 units SC BIDAC 09/27/16 [Last Taken Unknown] Ipratropium/Albuterol Sulfate [Iprat-Albut 0.5-3(2.5) mg/3 ml] 3 ml IH QID PRN 09/27/16 [Last Taken Unknown] Lactobacillus Acidophilus [Bacid] 250 mg PO BID 09/27/16 [Last Taken Unknown] Carbamazepine [Carbatrol] 100 mg PO HS 10/04/16 [Last Taken Unknown] Potassium Chloride [Klor-Con 10] 10 meq PO DAILY 10/04/16 [Last Taken Unknown] Acetaminophen [Tylenol] 650 mg PO Q4H PRN 10/08/16 [Last Taken Unknown] Cefdinir [Omnicef] 300 mg PO Q12H 10/08/16 [Last Taken Unknown] Ciprofloxacin HCl [Cipro] 500 mg PO BID 10/08/16 [Last Taken Unknown] Ciprofloxacin/Hydrocortisone [Cipro Hc Otic Suspension] 3 drop RIGHT EAR QID [Last Taken Unknown] Fluticasone Propionate [Flonase] 2 spray NS DAILY 10/08/16 [Last Taken Unknown] Nystatin [Mycostatin Powder] 1 appl TP BID 10/08/16 [Last Taken Unknown] Terazosin HCl 10 mg PO HS 10/08/16 [Last Taken Unknown] Exam - Exam Vital Signs: Vital Signs - Last Taken Temp 36.9 C 10/08/16 16:19 Pulse 68 10/08/16 19:41 Resp 18 10/08/16 19:41 BP 167/62 10/08/16 19:41 Pulse Ox 100 10/08/16 19:41 Constitutional: Present: Alert, Cooperative, Mild distress, Elderly, Obese, Morbidly obese ENT Exam: Present: hard of hearing, dry mucous membranes, other - RT ear has dull & [place] TM. Eye Exam: right eye: other - full blindess of LT eye Neck: Present: non-tender, full range of motion, supple Back Exam: Present: normal inspection, no CVA tenderness Breasts: Present: Exam deferred Respiratory: Present: no accessory muscle use, rales Cardiovascular/Chest: Present: regular rate, rhythm, systolic murmur Abdomen: Present: Normal bowel sounds, soft, nontender, obese /Rectal: Present: Exam deferred Extremity: Present: lower extremity edema - + 2-3 BLE. Skin Exam: Present: warm/dry, no cyanosis Lymphatic: Present: no adenopathy Neurologic: Present: alert, abnormal gait, motor weakness, disoriented x 3. Absent: dizzy/light-headedness Appearance: Present: impaired insight Eye contact: Present: good eye contact, decreased rate of speech Thoughts: Present: no apparent hallucination Diagnostic Studies: Laboratory Results WBC 7.2 K/mm3 (4.0-10.5) 10/08/16 16:30 RBC 2.59 M/mm3 (4.7-6.0) L 10/08/16 16:30 Hgb 7.3 gm/dL (13.5-18.0) L* 10/08/16 16:30 Hct 23.6 % (42.0-52.0) L* 10/08/16 16:30 MCV 91.1 fl (78-100) 10/08/16 16:30 MCH 28.2 pg (27-31) 10/08/16 16:30 MCHC 30.9 g/dl (32-36) L 10/08/16 16:30 RDW 15.3 % (11.5-14.0) H 10/08/16 16:30 Plt Count 248 K/mm3 (150-450) 10/08/16 16:30 MPV 9.3 fl (6.0-9.5) 10/08/16 16:30 Immature Gran % (Auto) 0.40 % (0.001-0.429) 10/08/16 16:30 Immature Gran # (Auto) 0.03 K/mm3 (0.000-0.0310) 10/08/16 16:30 Neutrophils % 74.0 % (42-75.0) 10/08/16 16:30 Lymphocytes % 10.8 % (20-51) L 10/08/16 16:30 Monocytes % 14.1 % (0.0-9) H 10/08/16 16:30 Eosinophils % 0.4 % (0.0-3.0) 10/08/16 16:30 Basophils % 0.3 % (0.0-1.0) 10/08/16 16:30 Nucleated RBC % 0.0 k/mm3 (0-1) 10/08/16 16:30 Neutrophils # 5.4 K/mm3 (1.3-6.0) 10/08/16 16:30 Lymphocytes # 0.8 k/mm3 (1.5-3.5) L 10/08/16 16:30 Monocytes # 1.0 k/mm3 (0.0-1.0) 10/08/16 16:30 Eosinophils # 0.0 k/mm3 (0.0-0.7) 10/08/16 16:30 Absolute Basophils 0.0 k/mm3 (0.0-0.1) 10/08/16 16:30 Sodium 139 mmol/L (132-142) 10/08/16 16:30 Plasma Sodium 139 mmol/L (130-142) 10/08/16 16:30 Potassium 4.3 mmol/L (3.4-4.6) 10/08/16 16:30 Chloride 105 mmol/L (97-106) 10/08/16 16:30 Carbon Dioxide 24.0 mmol/L (24-32.6) 10/08/16 16:30 Anion Gap 14.3 mmol/L (6.8-13.8) H 10/08/16 16:30 BUN 38 mg/dL (6-23) H 10/08/16 16:30 Creatinine 2.64 mg/dL (0.4-1.4) H 10/08/16 16:30 Est GFR (Non-Af Amer) 30 mL/min (60-130) L 10/08/16 16:30 BUN/Creatinine Ratio 14.4 (9.0-21.6) 10/08/16 16:30 Random Glucose 117 mg/dL (70-110) H 10/08/16 16:30 Lactic Acid, Venous 0.8 mmol/L (0.4-1.9) 10/08/16 16:30 Calcium 8.7 mg/dL (7.9-10.9) 10/08/16 16:30 Calcium Adj for Albumin 9.7 mg/dL (8.4-10.2) 10/08/16 16:30 Total Bilirubin 0.2 mg/dL (0.0-1.1) 10/08/16 16:30 AST 41 U/L (0-48) 10/08/16 16:30 ALT 33 U/L (19-67) 10/08/16 16:30 Alkaline Phosphatase 171 U/L (50-170) H 10/08/16 16:30 Troponin I Less than 0.017 ng/ml (0.00-0.10) 10/08/16 16:30 C-Reactive Prot, Quant 3.5 mg/dL (0.0-0.9) H 10/08/16 16:30 B-Natriuretic Peptide 1579 pg/mL (5-650) H 10/08/16 16:30 Total Protein 7.3 gm/dL (6.2-8.2) 10/08/16 16:30 Albumin 2.4 gm/dl (3.4-5.0) L 10/08/16 16:30 Procalcitonin 0.11 ng/mL (0.05-0.50) 10/08/16 16:30 Urine Color Yellow 10/08/16 17:03 Urine Appearance Clear 10/08/16 17:03 Urine pH 7.0 pH (5.0-7.0) 10/08/16 17:03 Ur Specific [place] 1.010 SP.GR. (1.005-1.030) 10/08/16 17:03 Urine Protein 15 mg/dL (NEGATIVE) H 10/08/16 17:03 Urine Glucose (UA) Negative mg/dL (NEGATIVE) 10/08/16 17:03 Urine Ketones Negative mg/dL (NEGATIVE) 10/08/16 17:03 Urine Blood Negative /ul (NEGATIVE) 10/08/16 17:03 Urine Nitrate Negative (NEGATIVE) 10/08/16 17:03 Urine Bilirubin Negative mg/dl (NEGATIVE) 10/08/16 17:03 Prot Sulfosalicylic Acd 1+ mg/dL (0) 10/08/16 17:03 Urine Urobilinogen Normal EU/dl (NORMAL) 10/08/16 17:03 Ur Leukocyte Esterase Negative /ul (NEGATIVE) 10/08/16 17:03 Urine RBC None seen /hpf (0-5) 10/08/16 17:03 Urine WBC None seen /hpf (0-5) 10/08/16 17:03 Ur Epithelial Cells 0-5 /hpf (0-5) 10/08/16 17:03 Urine Bacteria None seen (NONE) 10/08/16 17:03 Urine Culture Comments No culture indicated 10/08/16 17:03 Assessment/Plan - Assessment/Plan (1) Acute exacerbation of CHF (congestive heart failure) Assessment: Pt noted to have fatigue and Ever Pitting edema of + 2-3. His BNP was elevated at 1574 and the CXR findings suggested Pulmonary Edema. Will require IV diuretics and therefore will give Lasix 80mg & Metolazone 5 mg po once. Will need Alberts for accurate I/O as he's incontinent. Monitor I/Os, Weight, Serum electrolytes, BUN/CR. Will adjust dose daily based on fluid volume status and kidney function. Echo on 09/28/16 showed normal EF, moderate LVH, diastolic dysfucntion, RSVP 41. Problem: Acute (2) Acute on chronic kidney failure Assessment: Pt is noted to have BUN/CR of 38/2.64 which is slightly higher than his normal baseline and was probably worsened by volume overload from CHF. Will diurese gently and monitor kidney function and fluid volume status to determine future/ daily doses. BMP in am. Problem: Acute (3) Anemia Assessment: His H/H is low at 23.6/7.3. There is no sign of blood loss and occult stool was negative in the last admission. I suspect his Anemia is likely due to Anemia of Chronic Kidney Disease. Consider giving iron replacement over (Erythropoiesis stimulating agents -which recommended when TSAT > 25% & Ferritin is > 200ng/mL) and the pt may respond to Iron. Will hold off any transfusion unless there rapid correction needed to stabilize pt's condition involving acute hemorrhage. Laboratory Tests 09/27/16 09/28/16 09/29/16 18:35 05:00 05:15 Hgb 7.6 L* 7.9 L* 7.5 L* Hct 23.7 L* 25.1 L 23.9 L* 09/30/16 10/01/16 10/04/16 07:00 06:00 12:55 Hgb 7.5 L* 7.3 L* 7.1 L* Hct 23.6 L* 23.0 L* 22.1 L* 10/08/16 10/08/16 16:30 22:30 Hgb 7.3 L* 7.2 L* Hct 23.6 L* 23.4 L* 08/30/16 09/28/16 09/30/16 11:30 05:00 06:45 Iron 24 L TIBC 111 L Transferrin 116 L Transferrin % Sat 22 Vitamin B12 1974 H Folate Greater than 20.0 Problem: Chronic Qualifiers: Anemia type: other cause Other causes of anemia: chronic disease, other Qualified Code(s): D63.8 - Anemia in other chronic diseases classified elsewhere (4) Discharge planning issues Assessment: Pt will need senior care placement at discharge. He lives with aging who is a 89yrs old and she laments that she can no longer provide care for him at home due to weakness and he has had numerous falls at home. They have only one daughter, who has a 5 yr old child with physical disabilities and is non-verbal and lives 2hrs away. Maddie states that she lacks enough support to continue providing care for him and wishes for pt to be placed at a long-term care facility. Will involve PT/OT and encourage ambulation, but even then, the goal to be achieved for his strengthening is far to be reached given advanced age and comorbidities and therefore, safety would be the main priority. Problem: Acute (5) Nasopharyngeal mass Assessment: ENT was consulted during the previous hospital admission about the nasopharyngeal mass seen on CT. He had nasal endoscopy on 09/30. Per Dr. Johansen , he was unable to tell if the mass was due to inflammatory changes or neoplasm but an ear wick was placed to facilitate Ciprodex ear drop penetration and if there was not improvement within 1 week, the plan was to go for another nasal endoscopy with biopsy. The pt is denying ear pain and no effusion is seen, even though the TM appears opaque. Continue with Ciprofloxacin drops to the RT ear. Problem: Acute (6) Middle ear effusion Assessment: Continue with Ciprofloxaxin gtt on RT ear and Cefinir PO to cover for Pseudomonas. Problem: Acute Qualifiers: Laterality: right Qualified Code(s): H65.91 - Unspecified nonsuppurative otitis media, right ear (7) Diabetes mellitus type 2 in obese Assessment: Stable- Continue with Accu - Check AC/HS and mealtime and long acting insulins. Problem: Chronic (8) HTN (hypertension) Problem: Chronic (9) Myasthenia gravis Problem: Chronic (10) Seizures Problem: Chronic
[2016-10-08 22:37] LABS: Hematocrit 23.4 % (42.0-52.0); Hemoglobin 7.2 gm/dL (13.5-18.0)
[2016-10-08] MEDS ORDERED: ALBUTEROL SULFATE/IPRATROPIUM 3 ML NEBU IH PRN (22:57)
[2016-10-08] MEDS ORDERED: BISACODYL 5 MG TABLET.DR PO PRN (22:57)
[2016-10-08] MEDS ORDERED: ALBUTEROL SULFATE 200 PUFF INHALER IH PRN (22:57)
[2016-10-08] MEDS ORDERED: CEFDINIR 300 MG CAPSULE PO SCH (23:00)
[2016-10-08] MEDS ORDERED: FLUTICASONE FUROATE 50 MCG NS SCH (23:00)
[2016-10-08] MEDS ORDERED: CALCITRIOL 0.25 MCG CAPSULE PO SCH (23:00)
[2016-10-09] MEDS: carBAMazepine 100 MG TAB.CHEW PO SCH ×2 (00:07→21:07)
[2016-10-09] MEDS: TOPIRAMATE 50 MG TABLET PO SCH ×3 (00:07→21:07)
[2016-10-09] MEDS: LACTOBACILLUS ACIDOPHILUS 100 CAP BTL PO SCH ×3 (00:08→21:05)
[2016-10-09] MEDS: DORZOLAMIDE HCL 100 DROP BTL EACHEYE SCH ×4 (00:08→17:09)
[2016-10-09] MEDS: HYDROCORTISONE RIGHT EAR SCH ×2 (00:08→09:36)
[2016-10-09] MEDS: [UNRECOGNIZED DRUG - OTHER] RIGHT EAR SCH ×2 (00:08→09:36)
[2016-10-09] MEDS: CIPROFLOXACIN RIGHT EAR SCH ×2 (00:08→09:36)
[2016-10-09] MEDS ORDERED: IRON SUCROSE COMPLEX 500 MG in NORMAL SALINE 250 ML IV ONE (00:32)
[2016-10-09 05:33] LABS: Mean Cell Volume 91.1 fl (78-100); Mean Corpuscular Hemoglobin 28.7 pg (27-31); Mean Corpuscular Hgb Conc 31.5 g/dl (32-36); Mean Platelet Volume 9.5 fl (6.0-9.5); Neutrophil # 4.6 K/mm3 (1.3-6.0); Neutrophil % 66.6 % (42-75.0); Platelet Count 241 K/mm3 (150-450); Red Blood Count 2.58 M/mm3 (4.7-6.0); Red Cell Distribution Width 15.4 % (11.5-14.0); White Blood Count 6.9 K/mm3 (4.0-10.5)
[2016-10-09 05:39] LABS: Hematocrit 23.5 % (42.0-52.0); Hemoglobin 7.4 gm/dL (13.5-18.0)
[2016-10-09 05:52] LABS: Anion Gap 11.6 mmol/L (6.8-13.8); BUN/Creatinine Ratio 15.4 (9.0-21.6); Calcium * 8.8 mg/dL (7.9-10.9); Carbon Dioxide 26.4 mmol/L (24-32.6)
--- NOTE | 2016-10-09 06:11 | PN ---
Subjective - Date and Time Seen Date: 10/09/16 Time: 06:06 Subjective Narrative: Mr. Carver examined this am. Is alert and in no distress. States that he 'feels pretty good.' Was able to duirese 1450ml with 80 mg of IV Lasix. Hgb low- Received IV Venofer. No other issues according to nursing. Objective - Vitals Vitals: Last Vital Signs Temp 36.3 C L 10/09/16 02:59 Pulse 56 L 10/09/16 06:02 Resp 16 10/09/16 06:02 BP 164/61 10/09/16 02:59 Pulse Ox 100 10/09/16 06:02 - Abnormal Lab Findings Abnormal Lab Findings: Abnormal Lab Results 10/08/16 10/09/16 10/09/16 Range/Units 22:30 04:55 04:55 RBC 2.58 L (4.7-6.0) M/mm3 Hgb 7.2 L* 7.4 L* (13.5-18.0) gm/dL Hct 23.4 L* 23.5 L* (42.0-52.0) % MCHC 31.5 L (32-36) g/dl RDW 15.4 H (11.5-14.0) % Lymphocytes % 18.4 L (20-51) % Monocytes % 12.7 H (0.0-9) % Lymphocytes # 1.3 L (1.5-3.5) k/mm3 BUN 36 H (6-23) mg/dL Creatinine 2.34 H (0.4-1.4) mg/dL Est GFR (Non-Af Amer) 34 L (60-130) mL/min - Exam Constitutional: Present: Alert, Cooperative, No distress, Elderly ENT Exam: Present: normal ENT inspection, hard of hearing, TM dull, dry mucous membranes Neck: Present: full range of motion, supple, normal inspection Breasts: Present: Exam deferred Respiratory: Present: no accessory muscle use, rales, No wheezing Cardiovascular/Chest: Present: systolic murmur, edema Abdomen: Present: Normal bowel sounds, soft, nontender, obese /Rectal: Present: Other - Alberts Catheter. Extremity: Present: normal range of motion, non-tender, lower extremity edema - + 1-2 pitting edema Skin Exam: Present: no cyanosis, cool/dry Lymphatic: Present: no adenopathy Neurologic: Present: alert, abnormal gait, disoriented x 3 Appearance: Present: impaired insight Eye contact: Present: good eye contact, decreased rate of speech Thoughts: Present: no apparent hallucination Cauti Physician Documentation - Urinary Catheter Management Urethral (Alberts) Date of Insertion: 10/08/16 Time of Insertion: 23:02 Assessment/Plan - Problems/Diagnosis (1) Acute exacerbation of CHF (congestive heart failure) Problem: Acute Narrative: Pt noted to have fatigue and Evre Pitting edema of + 2-3. His BNP was elevated at 1574 and the CXR findings suggested Pulmonary Edema. Given Lasix 80mg & Metolazone 5 mg po once. Needed Alberts for accurate I/O as he 's incontinent. Was able to diurese 1450 ml. Will continue with Lasix 40 mg bid along with 20 of K replacement. Monitor I/Os, Weight, Serum electrolytes, BUN/CR. Will adjust dose daily based on fluid volume status and kidney function. Echo on 09/28/16 showed normal EF, moderate LVH, diastolic dysfucntion, RSVP 41. (2) Acute on chronic kidney failure Problem: Acute Narrative: Pt is noted to have BUN/CR of 38/2.64 which is slightly higher than his normal baseline and was probably worsened by volume overload from CHF. Improved this am following diuretics. Monitor kidney function closely with upcoming doses. Laboratory Tests 10/08/16 10/09/16 16:30 04:55 BUN 38 H 36 H Creatinine 2.64 H 2.34 H (3) Anemia Problem: Chronic Qualifiers: Anemia type: other cause Other causes of anemia: chronic disease, other Qualified Code(s): D63.8 - Anemia in other chronic diseases classified elsewhere Narrative: His H/H is low at 23.6/7.3. There is no sign of blood loss and occult stool was negative in the last admission. I suspect his Anemia is likely due to Anemia of Chronic Kidney Disease. Consider giving iron replacement over (Erythropoiesis stimulating agents -which recommended when TSAT > 25% & Ferritin is > 200ng/mL) and the pt may respond to Iron. Will hold off any transfusion unless there rapid correction needed to stabilize pt's condition involving acute hemorrhage. Laboratory Tests 10/08/16 10/08/16 10/09/16 16:30 22:30 04:55 Hgb 7.3 L* 7.2 L* 7.4 L* Hct 23.6 L* 23.4 L* 23.5 L* (4) Discharge planning issues Problem: Acute Narrative: Pt will need [facility] placement at discharge. He lives with aging who is a 89yrs old and she laments that she can no longer provide care for him at home due to weakness and he has had numerous falls at home. They have only one daughter, who has a 5 yr old child with physical disabilities and is non-verbal and lives 2hrs away. Maddie states that she lacks enough support to continue providing care for him and wishes for pt to be placed at a long-term care facility. Will involve PT/OT and encourage ambulation, but even then, the goal to be achieved for his strengthening is far to be reached given advanced age and comorbidities and therefore, safety would be the main priority. 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 He had nasal endoscopy on 09/30. Per Dr. Johansen , he was unable to tell if the mass was due to inflammatory changes or neoplasm but an ear wick was placed to facilitate Ciprodex ear drop penetration and if there was not improvement within 1 week, the plan was to go for another nasal endoscopy with biopsy. The pt is denying ear pain and no effusion is seen, even though the TM appears opaque. Continue with Ciprofloxacin drops to the RT ear. (6) Middle ear effusion Problem: Acute Qualifiers: Laterality: right Qualified Code(s): H65.91 - Unspecified nonsuppurative otitis media, right ear Narrative: Continue with Ciprofloxaxin gtt on RT ear and Cefinir PO to cover for Pseudomonas. 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 (8) HTN (hypertension) Problem: Chronic (9) Myasthenia gravis Problem: Chronic (10) Seizures Problem: Chronic
[2016-10-09] MEDS ORDERED: INSULIN LISPRO 100 UNITS/ML VIAL SC SCH (07:00)
[2016-10-09] MEDS: FUROSEMIDE 10 MG/ML VIAL IV SCH ×2 (07:12→17:08)
[2016-10-09] MEDS ORDERED: ALBUTEROL SULFATE 2.5 MG/3 ML VIAL.NEB IH PRN (07:25)
[2016-10-09] MEDS ORDERED: POTASSIUM CHLORIDE 10 MEQ TABLET.SA PO SCH ×2 (09:00)
[2016-10-09] MEDS ORDERED: INSULIN GLARGINE,HUM.REC.ANLOG 100 UNITS/ML VIAL SC SCH (09:00)
[2016-10-09] MEDS: CIPROFLOXACIN LACTATE IV SCH ×2 (09:12→21:05)
[2016-10-09] MEDS: D5W IV SCH ×2 (09:12→21:05)
[2016-10-09] MEDS: MINERAL OIL/PETROLATUM,WHITE 454 APPL JAR TP SCH ×2 (09:17→21:10)
[2016-10-09] MEDS: NYSTATIN 15 APPL BTL TP SCH ×2 (09:17→21:10)
[2016-10-09] MEDS: ASPIRIN 81 MG TAB.CHEW PO SCH (09:18)
[2016-10-09] MEDS: PYRIDOSTIGMINE BROMIDE 60 MG TABLET PO SCH ×3 (09:18→17:09)
[2016-10-09] MEDS: MULTIVITAMIN/IRON/FOLIC ACID 1 TAB TABLET PO SCH (09:18)
[2016-10-09] MEDS: POTASSIUM CHLORIDE 20 MEQ TABLET.SA PO SCH (09:19)
[2016-10-09] MEDS: CHOLECALCIFEROL 1,000 UNIT CAPSULE PO SCH (09:19)
[2016-10-09] MEDS: FOLIC ACID 1 MG TABLET PO SCH (09:19)
[2016-10-09] MEDS: METOPROLOL TARTRATE 25 MG TABLET PO SCH ×2 (09:20→21:07)
[2016-10-09] MEDS: NITROGLYCERIN 0.4 MG TD SCH (09:27)
[2016-10-09] MEDS: FLUTICASONE PROPIONATE 120 SPRAY INHALER NS SCH (09:30)
[2016-10-09] MEDS: INSULIN LISPRO 100 UNITS/ML VIAL SC SCH ×2 (12:18→17:08)
[2016-10-09] MEDS ORDERED: BIMATOPROST 25 DROP BTL EACHEYE SCH (21:00)
[2016-10-09] MEDS: ROSUVASTATIN CALCIUM 10 MG TABLET PO SCH (21:06)
[2016-10-09] MEDS: TERAZOSIN HCL 5 MG CAPSULE PO SCH (21:07)
[2016-10-09] MEDS: BIMATOPROST 25 DROP BTL EACHEYE SCH (21:08)
[2016-10-09] MEDS: LATANOPROST 25 DROP BTL EACHEYE SCH (21:09)
[2016-10-10 05:34] LABS: Mean Cell Volume 89.1 fl (78-100); Mean Corpuscular Hgb Conc 31.4 g/dl (32-36); Mean Platelet Volume 9.6 fl (6.0-9.5); Neutrophil # 8.5 K/mm3 (1.3-6.0); Neutrophil % 77.3 % (42-75.0); Platelet Count 222 K/mm3 (150-450); Red Blood Count 2.57 M/mm3 (4.7-6.0); Red Cell Distribution Width 15.4 % (11.5-14.0); White Blood Count 10.9 K/mm3 (4.0-10.5)
[2016-10-10 05:44] LABS: Anion Gap 11.6 mmol/L (6.8-13.8); BUN/Creatinine Ratio 17.2 (9.0-21.6); Calcium * 8.4 mg/dL (7.9-10.9); Carbon Dioxide 26.4 mmol/L (24-32.6); Estimated Creat Clear 24.1
[2016-10-10 05:58] LABS: Hematocrit 22.9 % (42.0-52.0); Hemoglobin 7.2 gm/dL (13.5-18.0)
--- NOTE | 2016-10-10 06:02 | PN ---
Subjective - Date and Time Seen Date: 10/10/16 Time: 05:59 Subjective Narrative: Mr. Carver examined this am. He is alert and in no distress. He has no complaints. No other acute events overnight. Objective - Vitals Vitals: Last Vital Signs Temp 36.8 C 10/10/16 02:17 Pulse 63 10/10/16 02:17 Resp 18 10/10/16 02:17 BP 150/78 10/10/16 02:17 Pulse Ox 99 10/10/16 02:17 - Abnormal Lab Findings Abnormal Lab Findings: Abnormal Lab Results 10/10/16 10/10/16 Range/Units 05:15 05:15 WBC 10.9 H D (4.0-10.5) K/mm3 RBC 2.57 L (4.7-6.0) M/mm3 Hgb 7.2 L* (13.5-18.0) gm/dL Hct 22.9 L* (42.0-52.0) % MCHC 31.4 L (32-36) g/dl RDW 15.4 H (11.5-14.0) % MPV 9.6 H (6.0-9.5) fl Immature Gran % (Auto) 0.50 H (0.001-0.429) % Immature Gran # (Auto) 0.05 H (0.000-0.0310) K/mm3 Neutrophils % 77.3 H (42-75.0) % Lymphocytes % 12.5 L (20-51) % Neutrophils # 8.5 H (1.3-6.0) K/mm3 Lymphocytes # 1.4 L (1.5-3.5) k/mm3 BUN 40 H (6-23) mg/dL Creatinine 2.33 H (0.4-1.4) mg/dL Est GFR (Non-Af Amer) 34 L (60-130) mL/min Random Glucose 127 H (70-110) mg/dL - Exam Constitutional: Present: Alert, Oriented x3, Cooperative, No distress, Elderly, Obese ENT Exam: Present: hard of hearing, TM dull, dry mucous membranes Neck: Present: full range of motion, supple, normal inspection Breasts: Present: Exam deferred Respiratory: Present: lungs clear, no respiratory distress Cardiovascular/Chest: Present: normal peripheral pulses, regular rate, rhythm, no chest tenderness, no murmur Abdomen: Present: Normal bowel sounds, soft, nontender /Rectal: Present: Exam deferred Extremity: Present: normal range of motion, non-tender, normal inspection Skin Exam: Present: warm/dry, no cyanosis Lymphatic: Present: no adenopathy Neurologic: Present: no motor/sensory deficits, alert, oriented x 3. Absent: dizzy/light-headedness Appearance: Present: appropriate appearance, appropriate insight Eye contact: Present: cooperative, good eye contact Thoughts: Present: no apparent hallucination Cauti Physician Documentation - Urinary Catheter Management Urethral (Alberts) Date of Insertion: 10/08/16 Time of Insertion: 23:02 Assessment/Plan - Problems/Diagnosis (1) Acute exacerbation of CHF (congestive heart failure) Problem: Acute Narrative: Pt noted to have fatigue and Ever Pitting edema of + 2-3. His BNP was elevated at 1574 and the CXR findings suggested Pulmonary Edema. Given Lasix 80mg & Metolazone 5 mg po once. Needed Alberts for accurate I/O as he 's incontinent. Will continue with Lasix 40 mg bid along with 20 of K replacement. Monitor I/Os, Weight, Serum electrolytes, BUN/CR. Will adjust dose daily based on fluid volume status and kidney function. Echo on 09/28/16 showed normal EF, moderate LVH, diastolic dysfucntion, RSVP 41. (2) Acute on chronic kidney failure Problem: Acute Narrative: Pt is noted to have BUN/CR of 38/2.64 which is slightly higher than his normal baseline and was probably worsened by volume overload from CHF. Improved this am following diuretics. Monitor kidney function closely with upcoming doses. Laboratory Tests 10/08/16 10/09/16 10/10/16 16:30 04:55 05:15 BUN 38 H 36 H 40 H Creatinine 2.64 H 2.34 H 2.33 H (3) Anemia Problem: Chronic Qualifiers: Anemia type: other cause Other causes of anemia: chronic disease, other Qualified Code(s): D63.8 - Anemia in other chronic diseases classified elsewhere Narrative: His H/H is low at 23.6/7.3. There is no sign of blood loss and occult stool was negative in the last admission. I suspect his Anemia is likely due to Anemia of Chronic Kidney Disease. Given iron replacement (Venofer) over (Erythropoiesis stimulating agents -which recommended when TSAT > 25% & Ferritin is > 200ng/mL) and the pt may respond to Iron. Will hold off any transfusion unless there rapid correction needed to stabilize pt's condition involving acute hemorrhage. Laboratory Tests 10/08/16 10/08/16 10/09/16 16:30 22:30 04:55 Hgb 7.3 L* 7.2 L* 7.4 L* Hct 23.6 L* 23.4 L* 23.5 L* 10/10/16 05:15 Hgb 7.2 L* Hct 22.9 L* (4) Discharge planning issues Problem: Acute Narrative: Pt will need retirement placement at discharge. He lives with aging who is a 89yrs old and she laments that she can no longer provide care for him at home due to weakness and he has had numerous falls at home. They have only one daughter, who has a 5 yr old child with physical disabilities and is non-verbal and lives 2hrs away. Maddie states that she lacks enough support to continue providing care for him and wishes for pt to be placed at a long-term care facility. Will involve PT/OT and encourage ambulation, but even then, the goal to be achieved for his strengthening is far to be reached given advanced age and comorbidities and therefore, safety would be the main priority (5) Nasopharyngeal mass Problem: Acute Narrative: ENT was consulted during the previous hospital admission about the nasopharyngeal mass seen on CT. He had nasal endoscopy on 09/30. Per Dr. Johansen , he was unable to tell if the mass was due to inflammatory changes or neoplasm but an ear wick was placed to facilitate Ciprodex ear drop penetration and if there was not improvement within 1 week, the plan was to go for another nasal endoscopy with biopsy. The pt is denying ear pain and no effusion is seen, even though the TM appears opaque. Continue with Ciprofloxacin drops to the RT ear (6) Middle ear effusion Problem: Acute Qualifiers: Laterality: right Qualified Code(s): H65.91 - Unspecified nonsuppurative otitis media, right ear Narrative: Continue with Ciprofloxaxin gtt on RT ear and change Cefdinir to Cipro to cover for Pseudomonas. 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 (8) HTN (hypertension) Problem: Chronic (9) Myasthenia gravis Problem: Chronic (10) Seizures Problem: Chronic
[2016-10-10] MEDS: INSULIN LISPRO 100 UNITS/ML VIAL SC SCH ×3 (07:28→16:16)
[2016-10-10] MEDS: FUROSEMIDE 10 MG/ML VIAL IV SCH ×2 (07:30→16:12)
[2016-10-10] MEDS ORDERED: FUROSEMIDE 10 MG/ML VIAL IV PRN (10:03)
[2016-10-10] MEDS: D5W IV SCH ×2 (10:04→20:33)
[2016-10-10] MEDS: CIPROFLOXACIN LACTATE IV SCH ×2 (10:04→20:33)
[2016-10-10] MEDS: ASPIRIN 81 MG TAB.CHEW PO SCH (10:06)
[2016-10-10] MEDS: LACTOBACILLUS ACIDOPHILUS 100 CAP BTL PO SCH ×2 (10:06→20:33)
[2016-10-10] MEDS: MULTIVITAMIN/IRON/FOLIC ACID 1 TAB TABLET PO SCH (10:07)
[2016-10-10] MEDS: NITROGLYCERIN 0.4 MG TD SCH (10:08)
[2016-10-10] MEDS: NYSTATIN 15 APPL BTL TP SCH ×2 (10:08→20:35)
[2016-10-10] MEDS: MINERAL OIL/PETROLATUM,WHITE 454 APPL JAR TP SCH ×2 (10:08→20:35)
[2016-10-10] MEDS: CHOLECALCIFEROL 1,000 UNIT CAPSULE PO SCH (10:09)
[2016-10-10] MEDS: FLUTICASONE PROPIONATE 120 SPRAY INHALER NS SCH (10:10)
[2016-10-10] MEDS: METOPROLOL TARTRATE 25 MG TABLET PO SCH ×2 (10:10→20:34)
[2016-10-10] MEDS: PYRIDOSTIGMINE BROMIDE 60 MG TABLET PO SCH ×3 (10:11→16:16)
[2016-10-10] MEDS: FOLIC ACID 1 MG TABLET PO SCH (10:11)
[2016-10-10] MEDS: INSULIN GLARGINE,HUM.REC.ANLOG 100 UNITS/ML VIAL SC SCH (10:12)
[2016-10-10] MEDS: TOPIRAMATE 50 MG TABLET PO SCH ×2 (10:12→20:33)
[2016-10-10] MEDS: POTASSIUM CHLORIDE 20 MEQ TABLET.SA PO SCH (10:12)
[2016-10-10] MEDS: DORZOLAMIDE HCL 100 DROP BTL EACHEYE SCH ×3 (10:14→16:17)
[2016-10-10] MEDS: HYDROcodone/ACETAMINOPHEN 1 EACH TABLET PO PRN (18:35)
[2016-10-10] MEDS: BIMATOPROST 25 DROP BTL EACHEYE SCH (20:32)
[2016-10-10] MEDS: ROSUVASTATIN CALCIUM 10 MG TABLET PO SCH (20:34)
[2016-10-10] MEDS: TERAZOSIN HCL 5 MG CAPSULE PO SCH (20:35)
[2016-10-10] MEDS: carBAMazepine 100 MG TAB.CHEW PO SCH (20:35)
[2016-10-10] MEDS: LATANOPROST 25 DROP BTL EACHEYE SCH (20:36)
--- NOTE | 2016-10-11 06:06 | PN ---
Subjective - Date and Time Seen Date: 10/11/16 Time: 06:03 Subjective Narrative: Mr. Carver is alert and in no distress. Has no complaints. Rested well. Has not ambulated much but feels great this morning. Received Blood transfusion yesterday. No other issues according to nursing. Objective - Vitals Vitals: Last Vital Signs Temp 36.8 C 10/11/16 02:33 Pulse 59 L 10/11/16 02:33 Resp 18 10/11/16 02:33 BP 147/69 10/11/16 02:33 Pulse Ox 97 10/11/16 02:33 - Exam Constitutional: Present: Alert, Oriented x3, Cooperative, No distress ENT Exam: Present: normal ENT inspection, hard of hearing Neck: Present: full range of motion, supple, normal inspection Breasts: Present: Exam deferred Respiratory: Present: lungs clear, no accessory muscle use Cardiovascular/Chest: Present: regular rate, rhythm, no chest tenderness, systolic murmur Abdomen: Present: Normal bowel sounds, soft, nontender, obese /Rectal: Present: Other - Alberts Catheter Extremity: Present: normal range of motion, non-tender, normal inspection Skin Exam: Present: warm/dry, no cyanosis Lymphatic: Present: no adenopathy Neurologic: Present: no motor/sensory deficits, alert, oriented x 3 Appearance: Present: appropriate appearance Eye contact: Present: cooperative, good eye contact, normal speech Thoughts: Present: normal thought pattern, no apparent hallucination Cauti Physician Documentation - Urinary Catheter Management Urethral (Alberts) Date of Insertion: 10/08/16 Time of Insertion: 23:02 Assessment/Plan - Problems/Diagnosis (1) Acute exacerbation of CHF (congestive heart failure) Problem: Acute Narrative: Pt noted to have fatigue and Ever Pitting edema of + 2-3. His BNP was elevated at 1574 and the CXR findings suggested Pulmonary Edema. Given Lasix 80mg & Metolazone 5 mg po once. Needed Alberts for accurate I/O as he 's incontinent. Continues to diurese well. Will continue with Lasix 40 mg bid along with 20 of K replacement. Monitor I/Os, Weight, Serum electrolytes, BUN/ CR. Will adjust dose daily based on fluid volume status and kidney function. Echo on 09/28/16 showed normal EF, moderate LVH, diastolic dysfucntion, RSVP 41. (2) Acute on chronic kidney failure Problem: Acute Narrative: On DOA, BUN/CR of 38/2.64 which is slightly higher than his normal baseline and was probably worsened by volume overload from CHF. Will diurese gently and monitor kidney function and fluid volume status to determine future/daily doses. BMP in am. (3) Anemia Problem: Chronic Qualifiers: Anemia type: other cause Other causes of anemia: chronic disease, other Qualified Code(s): D63.8 - Anemia in other chronic diseases classified elsewhere Narrative: Received IV venofer the last two admissions and it did not result to improvement on hgb. Given a unit of PRBC yesterday. Hgb much better today at 8.8 (4) Discharge planning issues Problem: Acute Narrative: Pt will need correction placement at discharge. He lives with aging who is a 89yrs old and she laments that she can no longer provide care for him at home due to weakness and he has had numerous falls at home. They have only one daughter, who has a 5 yr old child with physical disabilities and is non-verbal and lives 2hrs away. Maddie states that she lacks enough support to continue providing care for him and wishes for pt to be placed at a long-term care facility. Will involve PT/OT and encourage ambulation, but even then, the goal to be achieved for his strengthening is far to be reached given advanced age and comorbidities and therefore, safety would be the main priority. 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 He had nasal endoscopy on 09/30. Per Dr. Johansen , he was unable to tell if the mass was due to inflammatory changes or neoplasm but an ear wick was placed to facilitate Ciprodex ear drop penetration and if there was not improvement within 1 week, the plan was to go for another nasal endoscopy with biopsy. The pt is denying ear pain and no effusion is seen, even though the TM appears opaque. Continue with Ciprofloxacin drops to the RT ear. (6) Middle ear effusion Problem: Acute Qualifiers: Laterality: right Qualified Code(s): H65.91 - Unspecified nonsuppurative otitis media, right ear Narrative: Continue with Ciprofloxaxin gtt on RT ear and change Cefdinir to Cipro to cover for Pseudomonas. 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
[2016-10-11 06:40] LABS: Hematocrit 26.9 % (42.0-52.0); Hemoglobin 8.8 gm/dL (13.5-18.0); Mean Cell Volume 87.3 fl (78-100); Mean Corpuscular Hemoglobin 28.6 pg (27-31); Mean Corpuscular Hgb Conc 32.7 g/dl (32-36); Mean Platelet Volume 8.8 fl (6.0-9.5); Neutrophil # 5.5 K/mm3 (1.3-6.0); Neutrophil % 68.7 % (42-75.0); Platelet Count 205 K/mm3 (150-450); Red Blood Count 3.08 M/mm3 (4.7-6.0); Red Cell Distribution Width 15.4 % (11.5-14.0); White Blood Count 7.9 K/mm3 (4.0-10.5)
[2016-10-11 06:54] LABS: Anion Gap 10.8 mmol/L (6.8-13.8); BUN/Creatinine Ratio 18.5 (9.0-21.6); Calcium * 8.4 mg/dL (7.9-10.9); Carbon Dioxide 28.1 mmol/L (24-32.6); Estimated Creat Clear 26.6; Potassium 3.9 mmol/L (3.4-4.6)
[2016-10-11] MEDS: FUROSEMIDE 10 MG/ML VIAL IV SCH ×2 (07:05→17:12)
[2016-10-11] MEDS: INSULIN LISPRO 100 UNITS/ML VIAL SC SCH ×3 (07:09→17:20)
[2016-10-11] MEDS: CIPROFLOXACIN LACTATE IV SCH ×2 (08:52→20:26)
[2016-10-11] MEDS: D5W IV SCH ×2 (08:52→20:26)
[2016-10-11] MEDS: MINERAL OIL/PETROLATUM,WHITE 454 APPL JAR TP SCH ×2 (09:52→20:20)
[2016-10-11] MEDS: CHOLECALCIFEROL 1,000 UNIT CAPSULE PO SCH (09:53)
[2016-10-11] MEDS: FOLIC ACID 1 MG TABLET PO SCH (09:53)
[2016-10-11] MEDS: MULTIVITAMIN/IRON/FOLIC ACID 1 TAB TABLET PO SCH (09:53)
[2016-10-11] MEDS: ASPIRIN 81 MG TAB.CHEW PO SCH (09:53)
[2016-10-11] MEDS: LACTOBACILLUS ACIDOPHILUS 100 CAP BTL PO SCH ×2 (09:53→20:21)
[2016-10-11] MEDS: NYSTATIN 15 APPL BTL TP SCH ×2 (09:53→20:20)
[2016-10-11] MEDS: POTASSIUM CHLORIDE 20 MEQ TABLET.SA PO SCH (09:53)
[2016-10-11] MEDS: PYRIDOSTIGMINE BROMIDE 60 MG TABLET PO SCH ×3 (09:54→17:19)
[2016-10-11] MEDS: METOPROLOL TARTRATE 25 MG TABLET PO SCH ×2 (09:54→20:19)
[2016-10-11] MEDS: TOPIRAMATE 50 MG TABLET PO SCH ×2 (09:54→20:22)
[2016-10-11] MEDS: NITROGLYCERIN 0.4 MG TD SCH (09:58)
[2016-10-11] MEDS: DORZOLAMIDE HCL 100 DROP BTL EACHEYE SCH ×3 (09:59→17:11)
[2016-10-11] MEDS: FLUTICASONE PROPIONATE 120 SPRAY INHALER NS SCH (10:01)
[2016-10-11] MEDS: INSULIN GLARGINE,HUM.REC.ANLOG 100 UNITS/ML VIAL SC SCH (10:04)
[2016-10-11] MEDS: HYDROcodone/ACETAMINOPHEN 1 EACH TABLET PO PRN (18:35)
[2016-10-11] MEDS: hydrALAZINE HCL 25 MG TABLET PO SCH (20:19)
[2016-10-11] MEDS: ROSUVASTATIN CALCIUM 10 MG TABLET PO SCH (20:20)
[2016-10-11] MEDS: TERAZOSIN HCL 5 MG CAPSULE PO SCH (20:20)
[2016-10-11] MEDS: BIMATOPROST 25 DROP BTL EACHEYE SCH (20:21)
[2016-10-11] MEDS: LATANOPROST 25 DROP BTL EACHEYE SCH (20:22)
[2016-10-11] MEDS: carBAMazepine 100 MG TAB.CHEW PO SCH (20:23)
[2016-10-12] MEDS: FUROSEMIDE 10 MG/ML VIAL IV SCH (06:49)
[2016-10-12] MEDS: INSULIN LISPRO 100 UNITS/ML VIAL SC SCH ×3 (06:53→17:20)
[2016-10-12 07:03] LABS: Hemoglobin 10.5 gm/dL (13.5-18.0)
--- NOTE | 2016-10-12 08:33 | PN ---
Progess Note - Interim Narrative: 10/12/16 08:33 A[address]ing NH placement.
[2016-10-12] MEDS: CIPROFLOXACIN LACTATE IV SCH ×2 (09:15→20:12)
[2016-10-12] MEDS: D5W IV SCH ×2 (09:15→20:12)
[2016-10-12] MEDS: DORZOLAMIDE HCL 100 DROP BTL EACHEYE SCH ×3 (09:18→17:20)
[2016-10-12] MEDS: LACTOBACILLUS ACIDOPHILUS 100 CAP BTL PO SCH ×2 (09:20→20:14)
[2016-10-12] MEDS: PYRIDOSTIGMINE BROMIDE 60 MG TABLET PO SCH ×3 (09:22→17:20)
[2016-10-12] MEDS: ASPIRIN 81 MG TAB.CHEW PO SCH (09:22)
[2016-10-12] MEDS: TOPIRAMATE 50 MG TABLET PO SCH ×2 (09:22→20:18)
[2016-10-12] MEDS: CHOLECALCIFEROL 1,000 UNIT CAPSULE PO SCH (09:22)
[2016-10-12] MEDS: NYSTATIN 15 APPL BTL TP SCH ×2 (09:23→20:17)
[2016-10-12] MEDS: MINERAL OIL/PETROLATUM,WHITE 454 APPL JAR TP SCH ×2 (09:23→20:14)
[2016-10-12] MEDS: FOLIC ACID 1 MG TABLET PO SCH (09:23)
[2016-10-12] MEDS: hydrALAZINE HCL 25 MG TABLET PO SCH ×2 (09:24→20:13)
[2016-10-12] MEDS: METOPROLOL TARTRATE 25 MG TABLET PO SCH ×2 (09:24→20:16)
[2016-10-12] MEDS: POTASSIUM CHLORIDE 20 MEQ TABLET.SA PO SCH (09:26)
[2016-10-12] MEDS: MULTIVITAMIN/IRON/FOLIC ACID 1 TAB TABLET PO SCH (09:26)
[2016-10-12] MEDS: NITROGLYCERIN 0.4 MG TD SCH (09:31)
[2016-10-12] MEDS: INSULIN GLARGINE,HUM.REC.ANLOG 100 UNITS/ML VIAL SC SCH (09:32)
[2016-10-12] MEDS: FLUTICASONE PROPIONATE 120 SPRAY INHALER NS SCH (09:32)
--- NOTE | 2016-10-12 11:48 | PN ---
Subjective - Date and Time Seen Date: 10/12/16 Time: 11:42 Subjective Narrative: The patient is feeling better. His ear is not hurting as much as before. Objective - Review of Systems Generalized/Overall Review: Reports: Weakness. Denies: Chills, Fever EENTM: Reports: Ear Pain Respiratory: Reports: Shortness of Breath. Denies: Cough Cardiac: Reports: Edema. Denies: Chest Pain, Palpitations Abdominal: Denies: Nausea, Vomiting Genitourinary Symptoms: Denies: Urgency, Frequency Musculoskeletal Complaints: Reports: Joint Pain - Vitals Vitals: Last Vital Signs Temp 36.8 C 10/12/16 10:00 Pulse 69 10/12/16 10:00 Resp 18 10/12/16 10:00 BP 162/68 10/12/16 10:00 Pulse Ox 95 10/12/16 10:00 - Abnormal Lab Findings Abnormal Lab Findings: Abnormal Lab Results 10/12/16 Range/Units 06:55 Hgb 10.5 L (13.5-18.0) gm/dL Hct 33.0 L (42.0-52.0) % - Exam Constitutional: Present: Alert, Oriented x3, Cooperative ENT Exam: Present: hard of hearing Neck: Present: supple Breasts: Present: Exam deferred Respiratory: Present: decreased breath sounds, No rales, No wheezing Cardiovascular/Chest: Present: regular rate, rhythm, no JVD, no murmur Abdomen: Present: Normal bowel sounds, soft, nontender, nondistended Extremity: Present: no calf tenderness, pedal edema Cauti Physician Documentation - Urinary Catheter Management Urethral (Alberts) Date of Insertion: 10/08/16 Time of Insertion: 23:02 Assessment/Plan - Problems/Diagnosis (1) Acute exacerbation of CHF (congestive heart failure) Problem: Resolved (2) Generalized weakness Problem: Acute Narrative: improved. on PT/OT. Had 2 units of BT. awaiting NH placement (3) HTN (hypertension) Problem: Chronic (4) Myasthenia gravis Problem: Chronic (5) Mastoiditis Problem: Acute Qualifiers: Laterality: right Qualified Code(s): H70.91 - Unspecified mastoiditis, right ear Narrative: with OM- pseudomonas on C & S-cotninue with IV Cipro (6) Nasopharyngeal mass Problem: Acute Narrative: will need ENT follow up once outpatient (7) Anemia Problem: Chronic Qualifiers: Anemia type: other cause Other causes of anemia: chronic disease, other Qualified Code(s): D63.8 - Anemia in other chronic diseases classified elsewhere Narrative: s/p BT (8) Chronic kidney disease, stage III (moderate) Problem: Chronic (9) 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
[2016-10-12] MEDS: HYDROcodone/ACETAMINOPHEN 1 EACH TABLET PO PRN (15:51)
[2016-10-12] MEDS: ROSUVASTATIN CALCIUM 10 MG TABLET PO SCH (20:13)
[2016-10-12] MEDS: BIMATOPROST 25 DROP BTL EACHEYE SCH (20:15)
[2016-10-12] MEDS: TERAZOSIN HCL 5 MG CAPSULE PO SCH (20:15)
[2016-10-12] MEDS: carBAMazepine 100 MG TAB.CHEW PO SCH (20:17)
[2016-10-12] MEDS: LATANOPROST 25 DROP BTL EACHEYE SCH (20:18)
--- NOTE | 2016-10-13 06:41 | PN ---
Subjective - Date and Time Seen Date: 10/13/16 Time: 06:17 Subjective Narrative: still c/o ear pain but not as bad as before. no cp. no dyspnea. still weak - working with PT/OT. Objective - Review of Systems Generalized/Overall Review: Reports: Weakness. Denies: Chills, Fever, Malaise EENTM: Reports: Ear Pain. Denies: Ear Discharge Respiratory: Reports: No Symptoms Reported Cardiac: Reports: No Symptoms Reported Abdominal: Reports: No Symptoms Reported Genitourinary Symptoms: Reports: No Symptoms Reported Musculoskeletal Complaints: Reports: No Symptoms Reported Neurological: Reports: No Symptoms Reported Skin: Reports: No Symptoms Reported Endocrine: Reports: No Symptoms Reported Misc: All systems neg except as marked - Vitals Vitals: Last Vital Signs Temp 36.4 C L 10/13/16 02:45 Pulse 60 10/13/16 02:45 Resp 18 10/13/16 02:45 BP 141/61 10/13/16 02:45 Pulse Ox 97 10/13/16 02:45 - Abnormal Lab Findings Abnormal Lab Findings: Abnormal Lab Results 10/12/16 Range/Units 06:55 Hgb 10.5 L (13.5-18.0) gm/dL Hct 33.0 L (42.0-52.0) % - Exam Constitutional: Present: Cooperative, No distress, Elderly, Obese ENT Exam: Present: hard of hearing Neck: Present: full range of motion, supple Breasts: Present: Exam deferred Respiratory: Present: chest non-tender, no respiratory distress, decreased breath sounds Cardiovascular/Chest: Present: regular rate, rhythm, no JVD, no murmur Abdomen: Present: Normal bowel sounds, soft, nontender, nondistended /Rectal: Present: Exam deferred Extremity: Present: no calf tenderness, lower extremity edema - +1 lower extremity edema bilat Skin Exam: Present: warm/dry, no cyanosis, pallor Cauti Physician Documentation - Urinary Catheter Management Urethral (Alberts) Urethral Indwelling: No Date of Insertion: 10/08/16 Time of Insertion: 23:02 Date of Removal: 10/12/16 Time of Removal: 16:45 Assessment/Plan Plan Narrative: Acute exac of CHF - currently on PO lasix - weight up 2 kg in 24 hours - however I/O -521 - sats 97% on RA - monitor for now. - strict I&Os - daily weights Generalized weakness - s/p 2units PRBCs - working with PT/OT - awaiting on NH placement Mastoiditis with OM - pseudomonas grown on C&S - Currently on IV Cipro Nasopharyngeal Mass - followup with ENT outpt. Anemia - s/p 2 units PRBCs. - hgb 10/12/16 10.5 CKD - Stage 3 - labs monitored Other chronic medical conditions as noted, currently stable. Code status: DNR. VTE: lovenox gi proph: none due to allergy. - Problems/Diagnosis (1) Myasthenia gravis Problem: Chronic (2) Acute exacerbation of CHF (congestive heart failure) Problem: Resolved (3) Generalized weakness Problem: Acute (4) Mastoiditis Problem: Acute Qualifiers: Laterality: right Qualified Code(s): H70.91 - Unspecified mastoiditis, right ear (5) Nasopharyngeal mass Problem: Acute (6) Anemia Problem: Chronic Qualifiers: Anemia type: other cause Other causes of anemia: chronic disease, other Qualified Code(s): D63.8 - Anemia in other chronic diseases classified elsewhere (7) Chronic kidney disease, stage III (moderate) Problem: Chronic (8) 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
[2016-10-13] MEDS: INSULIN LISPRO 100 UNITS/ML VIAL SC SCH ×3 (07:24→18:03)
[2016-10-13] MEDS: ENOXAPARIN SODIUM 30 MG/0.3 ML SYRG SC SCH (09:30)
[2016-10-13] MEDS: D5W IV SCH ×2 (09:30→20:07)
[2016-10-13] MEDS: CIPROFLOXACIN LACTATE IV SCH ×2 (09:30→20:07)
[2016-10-13] MEDS: MULTIVITAMIN/IRON/FOLIC ACID 1 TAB TABLET PO SCH (09:31)
[2016-10-13] MEDS: hydrALAZINE HCL 25 MG TABLET PO SCH ×2 (09:31→20:08)
[2016-10-13] MEDS: PYRIDOSTIGMINE BROMIDE 60 MG TABLET PO SCH ×3 (09:31→16:18)
[2016-10-13] MEDS: METOPROLOL TARTRATE 25 MG TABLET PO SCH ×2 (09:31→20:10)
[2016-10-13] MEDS: FOLIC ACID 1 MG TABLET PO SCH (09:32)
[2016-10-13] MEDS: ASPIRIN 81 MG TAB.CHEW PO SCH (09:32)
[2016-10-13] MEDS: POTASSIUM CHLORIDE 20 MEQ TABLET.SA PO SCH (09:32)
[2016-10-13] MEDS: DORZOLAMIDE HCL 100 DROP BTL EACHEYE SCH ×3 (09:32→16:18)
[2016-10-13] MEDS: CHOLECALCIFEROL 1,000 UNIT CAPSULE PO SCH (09:32)
[2016-10-13] MEDS: TOPIRAMATE 50 MG TABLET PO SCH ×2 (09:32→20:11)
[2016-10-13] MEDS: FUROSEMIDE 40 MG TABLET PO SCH (09:33)
[2016-10-13] MEDS: NITROGLYCERIN 0.4 MG TD SCH (09:33)
[2016-10-13] MEDS: NYSTATIN 15 APPL BTL TP SCH ×2 (09:33→20:10)
[2016-10-13] MEDS: INSULIN GLARGINE,HUM.REC.ANLOG 100 UNITS/ML VIAL SC SCH (09:35)
[2016-10-13] MEDS: MINERAL OIL/PETROLATUM,WHITE 454 APPL JAR TP SCH ×2 (09:35→20:09)
[2016-10-13] MEDS: FLUTICASONE PROPIONATE 120 SPRAY INHALER NS SCH (09:35)
[2016-10-13] MEDS: LACTOBACILLUS ACIDOPHILUS 100 CAP BTL PO SCH ×2 (09:35→20:08)
[2016-10-13] MEDS: ROSUVASTATIN CALCIUM 10 MG TABLET PO SCH (20:08)
[2016-10-13] MEDS: TERAZOSIN HCL 5 MG CAPSULE PO SCH (20:09)
[2016-10-13] MEDS: BIMATOPROST 25 DROP BTL EACHEYE SCH (20:10)
[2016-10-13] MEDS: carBAMazepine 100 MG TAB.CHEW PO SCH (20:11)
[2016-10-13] MEDS: LATANOPROST 25 DROP BTL EACHEYE SCH (20:12)
[2016-10-14] MEDS: INSULIN LISPRO 100 UNITS/ML VIAL SC SCH ×3 (06:58→17:00)
--- NOTE | 2016-10-14 07:38 | PN ---
Progess Note - Interim Narrative: 10/14/16 07:37 Says he walked farther yesterday in hallway. His ear is not hurting him anymore. awaiting NH placement.
[2016-10-14] MEDS: CIPROFLOXACIN HCL 250 MG TABLET PO SCH ×2 (08:43→20:42)
[2016-10-14] MEDS: PYRIDOSTIGMINE BROMIDE 60 MG TABLET PO SCH ×3 (08:44→16:59)
[2016-10-14] MEDS: POTASSIUM CHLORIDE 20 MEQ TABLET.SA PO SCH (08:44)
[2016-10-14] MEDS: TOPIRAMATE 50 MG TABLET PO SCH ×2 (08:45→20:43)
[2016-10-14] MEDS: MULTIVITAMIN/IRON/FOLIC ACID 1 TAB TABLET PO SCH (08:45)
[2016-10-14] MEDS: ASPIRIN 81 MG TAB.CHEW PO SCH (08:45)
[2016-10-14] MEDS: CHOLECALCIFEROL 1,000 UNIT CAPSULE PO SCH (08:45)
[2016-10-14] MEDS: METOPROLOL TARTRATE 25 MG TABLET PO SCH ×2 (08:45→20:50)
[2016-10-14] MEDS: FUROSEMIDE 40 MG TABLET PO SCH (08:45)
[2016-10-14] MEDS: FOLIC ACID 1 MG TABLET PO SCH (08:45)
[2016-10-14] MEDS: hydrALAZINE HCL 25 MG TABLET PO SCH ×2 (08:45→20:50)
[2016-10-14] MEDS: LACTOBACILLUS ACIDOPHILUS 100 CAP BTL PO SCH ×2 (08:45→20:44)
[2016-10-14] MEDS: ENOXAPARIN SODIUM 30 MG/0.3 ML SYRG SC SCH (08:46)
[2016-10-14] MEDS: NITROGLYCERIN 0.4 MG TD SCH (08:46)
[2016-10-14] MEDS: MINERAL OIL/PETROLATUM,WHITE 454 APPL JAR TP SCH ×2 (08:46→20:44)
[2016-10-14] MEDS: NYSTATIN 15 APPL BTL TP SCH ×2 (08:46→20:42)
[2016-10-14] MEDS: INSULIN GLARGINE,HUM.REC.ANLOG 100 UNITS/ML VIAL SC SCH (08:47)
[2016-10-14] MEDS: FLUTICASONE PROPIONATE 120 SPRAY INHALER NS SCH (08:47)
[2016-10-14] MEDS: DORZOLAMIDE HCL 100 DROP BTL EACHEYE SCH ×3 (08:48→16:59)
--- NOTE | 2016-10-14 15:28 | PN ---
Subjective - Date and Time Seen Date: 10/14/16 Time: 15:24 Subjective Narrative: Patient is feeling better. Walked longer in the hallway . He says his ear is not hurting anymore. Objective - Review of Systems Generalized/Overall Review: Reports: Weakness. Denies: Chills, Fever EENTM: Reports: Ear Pain - resolved, Ear Discharge - vs Ciprodex drops Respiratory: Denies: Cough, Shortness of Breath, Orthopnea Cardiac: Denies: Chest Pain, Edema, Palpitations Abdominal: Denies: Nausea, Vomiting Genitourinary Symptoms: Denies: Urgency, Frequency Musculoskeletal Complaints: Reports: Joint Pain - Vitals Vitals: Last Vital Signs Temp 36.6 C 10/14/16 14:15 Pulse 65 10/14/16 14:15 Resp 18 10/14/16 14:15 BP 143/66 10/14/16 14:15 Pulse Ox 98 10/14/16 14:15 - Exam Constitutional: Present: Oriented x3, Cooperative, Elderly, Morbidly obese ENT Exam: Present: hard of hearing Neck: Present: supple Breasts: Present: Exam deferred Respiratory: Present: decreased breath sounds, No rales, No wheezing Cardiovascular/Chest: Present: regular rate, rhythm, no JVD, no murmur Abdomen: Present: Normal bowel sounds, soft, nontender, nondistended Extremity: Present: no calf tenderness, pedal edema Cauti Physician Documentation - Urinary Catheter Management Urethral (Alberts) Urethral Indwelling: No Date of Insertion: 10/08/16 Time of Insertion: 23:02 Date of Removal: 10/12/16 Time of Removal: 16:45 Assessment/Plan - Problems/Diagnosis (1) Acute exacerbation of CHF (congestive heart failure) Problem: Resolved Qualifiers: Congestive heart failure type: diastolic Qualified Code(s): I50.33 - Acute on chronic diastolic (congestive) heart failure Narrative: on oral lasix (2) Generalized weakness Problem: Acute Narrative: pcontinue with PT/OT (3) HTN (hypertension) Problem: Chronic (4) Myasthenia gravis Problem: Chronic (5) Mastoiditis Problem: Acute Qualifiers: Laterality: right Qualified Code(s): H70.91 - Unspecified mastoiditis, right ear Narrative: with OM- continue with antibiotics. 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 fluid restriction.
[2016-10-14] MEDS: ACETAMINOPHEN 325 MG TABLET PO PRN (16:59)
[2016-10-14] MEDS: ROSUVASTATIN CALCIUM 10 MG TABLET PO SCH (20:42)
[2016-10-14] MEDS: carBAMazepine 100 MG TAB.CHEW PO SCH (20:42)
[2016-10-14] MEDS: LATANOPROST 25 DROP BTL EACHEYE SCH (20:43)
[2016-10-14] MEDS: TERAZOSIN HCL 5 MG CAPSULE PO SCH (20:43)
[2016-10-14] MEDS: BIMATOPROST 25 DROP BTL EACHEYE SCH (20:44)
[2016-10-15 05:38] LABS: Hematocrit 30.3 % (42.0-52.0); Hemoglobin 9.7 gm/dL (13.5-18.0); Mean Cell Volume 87.3 fl (78-100); Neutrophil # 7.6 K/mm3 (1.3-6.0); Neutrophil % 73.7 % (42-75.0); Platelet Count 188 K/mm3 (150-450); Red Blood Count 3.47 M/mm3 (4.7-6.0); Red Cell Distribution Width 15.3 % (11.5-14.0); White Blood Count 10.3 K/mm3 (4.0-10.5)
[2016-10-15 05:46] LABS: Anion Gap 11.6 mmol/L (6.8-13.8); BUN/Creatinine Ratio 20.3 (9.0-21.6); Calcium * 8.6 mg/dL (7.9-10.9); Estimated Creat Clear 30.8; Potassium 4.6 mmol/L (3.4-4.6)
[2016-10-15] MEDS: HYDROcodone/ACETAMINOPHEN 1 EACH TABLET PO PRN (05:46)
[2016-10-15] MEDS: INSULIN LISPRO 100 UNITS/ML VIAL SC SCH ×3 (07:22→16:16)
[2016-10-15] MEDS: ENOXAPARIN SODIUM 30 MG/0.3 ML SYRG SC SCH (07:22)
--- NOTE | 2016-10-15 07:52 | PN ---
Progess Note - Interim Narrative: 10/15/16 07:51 Still awaiting NH placement. C/O couhging, . Mild hyponatremia this morning.
[2016-10-15 08:10] LABS: Chol/HDL Risk Ratio 1.7 mg/dL (3.3-5.0); TSH * 1.433 uIU/mL (0.358-3.74)
[2016-10-15] MEDS ORDERED: FUROSEMIDE 20 MG TABLET PO SCH (09:00)
[2016-10-15] MEDS: CIPROFLOXACIN HCL 250 MG TABLET PO SCH ×2 (09:21→20:36)
[2016-10-15] MEDS: POTASSIUM CHLORIDE 10 MEQ TABLET.SA PO SCH (09:21)
[2016-10-15] MEDS: LACTOBACILLUS ACIDOPHILUS 100 CAP BTL PO SCH ×2 (09:21→20:35)
[2016-10-15] MEDS: MULTIVITAMIN/IRON/FOLIC ACID 1 TAB TABLET PO SCH (09:21)
[2016-10-15] MEDS: FOLIC ACID 1 MG TABLET PO SCH (09:21)
[2016-10-15] MEDS: PYRIDOSTIGMINE BROMIDE 60 MG TABLET PO SCH ×3 (09:21→16:18)
[2016-10-15] MEDS: TOPIRAMATE 50 MG TABLET PO SCH ×2 (09:22→20:36)
[2016-10-15] MEDS: NYSTATIN 15 APPL BTL TP SCH ×2 (09:22→20:36)
[2016-10-15] MEDS: ASPIRIN 81 MG TAB.CHEW PO SCH (09:22)
[2016-10-15] MEDS: NITROGLYCERIN 0.4 MG TD SCH (09:22)
[2016-10-15] MEDS: hydrALAZINE HCL 25 MG TABLET PO SCH ×2 (09:22→20:35)
[2016-10-15] MEDS: CHOLECALCIFEROL 1,000 UNIT CAPSULE PO SCH (09:22)
[2016-10-15] MEDS: INSULIN GLARGINE,HUM.REC.ANLOG 100 UNITS/ML VIAL SC SCH (09:23)
[2016-10-15] MEDS: METOPROLOL TARTRATE 25 MG TABLET PO SCH ×2 (09:23→20:36)
[2016-10-15] MEDS: DORZOLAMIDE HCL 100 DROP BTL EACHEYE SCH ×3 (09:23→16:18)
[2016-10-15] MEDS: FLUTICASONE PROPIONATE 120 SPRAY INHALER NS SCH (09:24)
[2016-10-15] MEDS: MINERAL OIL/PETROLATUM,WHITE 454 APPL JAR TP SCH ×2 (09:29→20:35)
--- NOTE | 2016-10-15 11:05 | PN ---
Subjective - Date and Time Seen Date: 10/15/16 Time: 11:03 Subjective Narrative: Still awaiting NH placement. C/O coughing. Na is down 127. Objective - Review of Systems Generalized/Overall Review: Reports: Weakness. Denies: Chills, Fever EENTM: Reports: Ear Pain - resolved, Ear Discharge - reolved Cardiac: Denies: Chest Pain, Edema, Palpitations Abdominal: Denies: Nausea, Vomiting Genitourinary Symptoms: Denies: Urgency, Frequency Musculoskeletal Complaints: Reports: Joint Pain - Vitals Vitals: Last Vital Signs Temp 36.6 C 10/15/16 10:31 Pulse 63 10/15/16 10:31 Resp 18 10/15/16 10:31 BP 166/66 10/15/16 10:31 Pulse Ox 97 10/15/16 10:31 - Abnormal Lab Findings Abnormal Lab Findings: Abnormal Lab Results 10/15/16 10/15/16 10/15/16 Range/Units 05:25 05:25 05:28 RBC 3.47 L (4.7-6.0) M/mm3 Hgb 9.7 L (13.5-18.0) gm/dL Hct 30.3 L (42.0-52.0) % RDW 15.3 H (11.5-14.0) % Immature Gran # (Auto) 0.04 H (0.000-0.0310) K/mm3 Lymphocytes % 9.9 L (20-51) % Monocytes % 13.9 H (0.0-9) % Neutrophils # 7.6 H (1.3-6.0) K/mm3 Lymphocytes # 1.0 L (1.5-3.5) k/mm3 Monocytes # 1.4 H (0.0-1.0) k/mm3 Sodium 127 L (132-142) mmol/L Plasma Sodium 128 L (130-142) mmol/L Chloride 95 L (97-106) mmol/L BUN 37 H (6-23) mg/dL Creatinine 1.82 H (0.4-1.4) mg/dL Est GFR (Non-Af Amer) 45 L (60-130) mL/min Random Glucose 147 H (70-110) mg/dL LDL Cholesterol 51 L (70-130) mg/dL HDL Cholesterol 76 H (40-60) mg/dL Cholesterol/HDL Ratio 1.7 L (3.3-5.0) mg/dL Ur Random Sodium (40-220) mmol/L 10/15/16 Range/Units 10:04 RBC (4.7-6.0) M/mm3 Hgb (13.5-18.0) gm/dL Hct (42.0-52.0) % RDW (11.5-14.0) % Immature Gran # (Auto) (0.000-0.0310) K/mm3 Lymphocytes % (20-51) % Monocytes % (0.0-9) % Neutrophils # (1.3-6.0) K/mm3 Lymphocytes # (1.5-3.5) k/mm3 Monocytes # (0.0-1.0) k/mm3 Sodium (132-142) mmol/L Plasma Sodium (130-142) mmol/L Chloride (97-106) mmol/L BUN (6-23) mg/dL Creatinine (0.4-1.4) mg/dL Est GFR (Non-Af Amer) (60-130) mL/min Random Glucose (70-110) mg/dL LDL Cholesterol (70-130) mg/dL HDL Cholesterol (40-60) mg/dL Cholesterol/HDL Ratio (3.3-5.0) mg/dL Ur Random Sodium 15 L (40-220) mmol/L - Exam Constitutional: Present: Alert, Oriented x3, Cooperative, Elderly, Morbidly obese ENT Exam: Present: hard of hearing Neck: Present: supple Breasts: Present: Exam deferred Respiratory: Present: decreased breath sounds, No rales, No wheezing Cardiovascular/Chest: Present: regular rate, rhythm, no JVD, no murmur Abdomen: Present: Normal bowel sounds, soft, nontender, nondistended Extremity: Present: no calf tenderness, pedal edema Cauti Physician Documentation - Urinary Catheter Management Urethral (Alberts) Urethral Indwelling: No Date of Insertion: 10/08/16 Time of Insertion: 23:02 Date of Removal: 10/12/16 Time of Removal: 16:45 Assessment/Plan - Problems/Diagnosis (1) Hyponatremia Problem: Acute Narrative: calculated plasma osmolality - 275 ( LOW NORMAL)- isotonic-lipid normal will check protein. measured serum/urine osmolality pending. if this hypotonic- patient looks euvolemic after diuresis. urine Na is less than 20- unlikley diuretic. consider SIADH. (2) Acute exacerbation of CHF (congestive heart failure) Problem: Resolved Qualifiers: Congestive heart failure type: diastolic Qualified Code(s): I50.33 - Acute on chronic diastolic (congestive) heart failure (3) Generalized weakness Problem: Acute Narrative: PT/OT (4) HTN (hypertension) Problem: Chronic (5) Myasthenia gravis Problem: Chronic (6) Mastoiditis Problem: Acute Qualifiers: Laterality: right Qualified Code(s): H70.91 - Unspecified mastoiditis, right ear Narrative: with OM on oral Cipro (7) Nasopharyngeal mass Problem: Acute Narrative: ENT is following up with patient on outpatient basis (8) Anemia Problem: Chronic Qualifiers: Anemia type: other cause Other causes of anemia: chronic disease, other Qualified Code(s): D63.8 - Anemia in other chronic diseases classified elsewhere Narrative: s/p BT (9) Chronic kidney disease, stage III (moderate) Problem: Chronic Narrative: Cr improved (10) Diabetes mellitus type 2 in obese Problem: Chronic (11) Hyperlipidemia Problem: Chronic Qualifiers: Hyperlipidemia type: mixed hyperlipidemia Qualified Code(s): E78.2 - Mixed hyperlipidemia (12) Hypertension Problem: Chronic Qualifiers: Hypertension type: essential hypertension Qualified Code(s): I10 - Essential (primary) hypertension (13) Seizures Problem: Chronic (14) Sleep apnea Problem: Chronic Qualifiers: Sleep apnea type: unspecified type Qualified Code(s): G47.30 - Sleep apnea , unspecified
[2016-10-15 12:32] LABS: Albumin * 2.2 gm/dl (3.4-5.0); Bilirubin Direct 0.1 mg/dL (0.0-0.3); Bilirubin, Total 0.3 mg/dL (0.0-1.1); Bilirubin,Indirect 0.2 mg/dL (0.1-0.7); Total Protein 7.1 gm/dL (6.2-8.2)
[2016-10-15] MEDS ORDERED: BENZONATATE 100 MG CAPSULE PO PRN (19:39)
[2016-10-15] MEDS: BIMATOPROST 25 DROP BTL EACHEYE SCH (20:34)
[2016-10-15] MEDS: ROSUVASTATIN CALCIUM 10 MG TABLET PO SCH (20:35)
[2016-10-15] MEDS: TERAZOSIN HCL 5 MG CAPSULE PO SCH (20:36)
[2016-10-15] MEDS: carBAMazepine 100 MG TAB.CHEW PO SCH (20:36)
[2016-10-15] MEDS: LATANOPROST 25 DROP BTL EACHEYE SCH (20:37)
[2016-10-15] MEDS: REMOVE PATCH 1 PATCH PATCH TP SCH (20:57)
[2016-10-16 05:35] LABS: BUN/Creatinine Ratio 27.5 (9.0-21.6); Calcium * 8.5 mg/dL (7.9-10.9); Carbon Dioxide 23.3 mmol/L (24-32.6); Estimated Creat Clear 40.7; Potassium 5.3 mmol/L (3.4-4.6)
[2016-10-16] MEDS: INSULIN LISPRO 100 UNITS/ML VIAL SC SCH ×3 (07:26→17:29)
[2016-10-16] MEDS: ENOXAPARIN SODIUM 30 MG/0.3 ML SYRG SC SCH (08:28)
[2016-10-16] MEDS: ASPIRIN 81 MG TAB.CHEW PO SCH (08:29)
[2016-10-16] MEDS: MULTIVITAMIN/IRON/FOLIC ACID 1 TAB TABLET PO SCH (08:30)
[2016-10-16] MEDS: FOLIC ACID 1 MG TABLET PO SCH (08:30)
[2016-10-16] MEDS: CHOLECALCIFEROL 1,000 UNIT CAPSULE PO SCH (08:30)
[2016-10-16] MEDS: POTASSIUM CHLORIDE 10 MEQ TABLET.SA PO SCH (08:30)
[2016-10-16] MEDS: LACTOBACILLUS ACIDOPHILUS 100 CAP BTL PO SCH ×2 (08:30→20:16)
[2016-10-16] MEDS: FLUTICASONE PROPIONATE 120 SPRAY INHALER NS SCH (08:30)
[2016-10-16] MEDS: TOPIRAMATE 50 MG TABLET PO SCH ×2 (08:31→20:21)
[2016-10-16] MEDS: NITROGLYCERIN 0.4 MG TD SCH (08:31)
[2016-10-16] MEDS: PYRIDOSTIGMINE BROMIDE 60 MG TABLET PO SCH ×3 (08:31→17:04)
[2016-10-16] MEDS: CIPROFLOXACIN HCL 250 MG TABLET PO SCH ×2 (08:31→20:16)
[2016-10-16] MEDS: FUROSEMIDE 40 MG TABLET PO SCH (08:32)
[2016-10-16] MEDS: hydrALAZINE HCL 25 MG TABLET PO SCH ×2 (08:33→20:16)
[2016-10-16] MEDS: MINERAL OIL/PETROLATUM,WHITE 454 APPL JAR TP SCH ×2 (08:33→20:19)
[2016-10-16] MEDS: METOPROLOL TARTRATE 25 MG TABLET PO SCH ×2 (08:34→20:15)
[2016-10-16] MEDS: NYSTATIN 15 APPL BTL TP SCH ×2 (08:34→20:20)
[2016-10-16] MEDS: DORZOLAMIDE HCL 100 DROP BTL EACHEYE SCH ×3 (08:34→17:04)
[2016-10-16] MEDS: INSULIN GLARGINE,HUM.REC.ANLOG 100 UNITS/ML VIAL SC SCH (08:35)
[2016-10-16] MEDS: HYDROcodone/ACETAMINOPHEN 1 EACH TABLET PO PRN (09:25)
--- NOTE | 2016-10-16 14:20 | PN ---
Subjective - Date and Time Seen Date: 10/16/16 Time: 14:19 Subjective Narrative: C/O chronic pain behind RT ear. Objective - Vitals Vitals: Last Vital Signs Temp 36.6 C 10/16/16 10:52 Pulse 66 10/16/16 10:52 Resp 18 10/16/16 10:52 BP 137/64 10/16/16 10:52 Pulse Ox 94 10/16/16 10:52 - Abnormal Lab Findings Abnormal Lab Findings: Abnormal Lab Results 10/16/16 Range/Units 05:25 Sodium 128 L (132-142) mmol/L Plasma Sodium 129 L (130-142) mmol/L Potassium 5.3 H (3.4-4.6) mmol/L Chloride 96 L (97-106) mmol/L Carbon Dioxide 23.3 L (24-32.6) mmol/L Anion Gap 14.0 H (6.8-13.8) mmol/L BUN 38 H (6-23) mg/dL BUN/Creatinine Ratio 27.5 H (9.0-21.6) Random Glucose 141 H (70-110) mg/dL Cauti Physician Documentation - Urinary Catheter Management Urethral (Alberts) Urethral Indwelling: No Date of Insertion: 10/08/16 Time of Insertion: 23:02 Date of Removal: 10/12/16 Time of Removal: 16:45
[2016-10-16] MEDS: ACETAMINOPHEN 325 MG TABLET PO PRN (15:36)
[2016-10-16] MEDS: ROSUVASTATIN CALCIUM 10 MG TABLET PO SCH (20:17)
[2016-10-16] MEDS: TERAZOSIN HCL 5 MG CAPSULE PO SCH (20:18)
[2016-10-16] MEDS: BIMATOPROST 25 DROP BTL EACHEYE SCH (20:19)
[2016-10-16] MEDS: REMOVE PATCH 1 PATCH PATCH TP SCH (20:20)
[2016-10-16] MEDS: carBAMazepine 100 MG TAB.CHEW PO SCH (20:22)
[2016-10-16] MEDS: LATANOPROST 25 DROP BTL EACHEYE SCH (20:22)
[2016-10-17] MEDS: INSULIN LISPRO 100 UNITS/ML VIAL SC SCH ×3 (07:30→17:24)
[2016-10-17] MEDS: ENOXAPARIN SODIUM 30 MG/0.3 ML SYRG SC SCH (08:58)
[2016-10-17] MEDS: FOLIC ACID 1 MG TABLET PO SCH (08:59)
[2016-10-17] MEDS: METOPROLOL TARTRATE 25 MG TABLET PO SCH ×2 (08:59→20:14)
[2016-10-17] MEDS: ASPIRIN 81 MG TAB.CHEW PO SCH (08:59)
[2016-10-17] MEDS: FUROSEMIDE 40 MG TABLET PO SCH (08:59)
[2016-10-17] MEDS: PYRIDOSTIGMINE BROMIDE 60 MG TABLET PO SCH ×3 (09:00→17:23)
[2016-10-17] MEDS: NITROGLYCERIN 0.4 MG TD SCH (09:00)
[2016-10-17] MEDS: CHOLECALCIFEROL 1,000 UNIT CAPSULE PO SCH (09:01)
[2016-10-17] MEDS: MULTIVITAMIN/IRON/FOLIC ACID 1 TAB TABLET PO SCH (09:01)
[2016-10-17] MEDS: CIPROFLOXACIN HCL 250 MG TABLET PO SCH ×2 (09:01→20:13)
[2016-10-17] MEDS: TOPIRAMATE 50 MG TABLET PO SCH ×2 (09:01→20:16)
[2016-10-17] MEDS: hydrALAZINE HCL 25 MG TABLET PO SCH ×2 (09:03→20:12)
[2016-10-17] MEDS: MINERAL OIL/PETROLATUM,WHITE 454 APPL JAR TP SCH ×2 (09:03→20:09)
[2016-10-17] MEDS: LACTOBACILLUS ACIDOPHILUS 100 CAP BTL PO SCH ×2 (09:04→20:11)
[2016-10-17] MEDS: FLUTICASONE PROPIONATE 120 SPRAY INHALER NS SCH (09:04)
[2016-10-17] MEDS: DORZOLAMIDE HCL 100 DROP BTL EACHEYE SCH ×3 (09:06→17:23)
[2016-10-17] MEDS: NYSTATIN 15 APPL BTL TP SCH ×2 (09:06→20:09)
[2016-10-17] MEDS: INSULIN GLARGINE,HUM.REC.ANLOG 100 UNITS/ML VIAL SC SCH (09:09)
--- NOTE | 2016-10-17 10:26 | PN ---
Subjective - Date and Time Seen Date: 10/17/16 Time: 10:26 Subjective Narrative: l;[id number];[id number] Objective - Vitals Vitals: Last Vital Signs Temp 36.5 C 10/17/16 06:00 Pulse 62 10/17/16 09:03 Resp 18 10/17/16 06:00 BP 148/82 10/17/16 09:03 Pulse Ox 97 10/17/16 06:00 - Abnormal Lab Findings Abnormal Lab Findings: Abnormal Lab Results 10/15/16 Range/Units 05:28 Serum Osmolality 273 L mOsm/kg Cauti Physician Documentation - Urinary Catheter Management Urethral (Alberts) Urethral Indwelling: No Date of Insertion: 10/08/16 Time of Insertion: 23:02 Date of Removal: 10/12/16 Time of Removal: 16:45
[2016-10-17] MEDS: HYDROcodone/ACETAMINOPHEN 1 EACH TABLET PO PRN (17:31)
[2016-10-17] MEDS: ROSUVASTATIN CALCIUM 10 MG TABLET PO SCH (20:11)
[2016-10-17] MEDS: TERAZOSIN HCL 5 MG CAPSULE PO SCH (20:13)
[2016-10-17] MEDS: BIMATOPROST 25 DROP BTL EACHEYE SCH (20:14)
[2016-10-17] MEDS: REMOVE PATCH 1 PATCH PATCH TP SCH (20:15)
[2016-10-17] MEDS: LATANOPROST 25 DROP BTL EACHEYE SCH (20:16)
[2016-10-17] MEDS: carBAMazepine 100 MG TAB.CHEW PO SCH (20:16)
[2016-10-18] MEDS: ENOXAPARIN SODIUM 30 MG/0.3 ML SYRG SC SCH (07:17)
[2016-10-18] MEDS: INSULIN LISPRO 100 UNITS/ML VIAL SC SCH ×3 (07:19→16:54)
[2016-10-18 08:08] LABS: Anion Gap 15.6 mmol/L (6.8-13.8); BUN/Creatinine Ratio 20.9 (9.0-21.6); Calcium * 9.4 mg/dL (7.9-10.9); Estimated Creat Clear 32.6; Potassium 4.6 mmol/L (3.4-4.6)
[2016-10-18] MEDS: hydrALAZINE HCL 25 MG TABLET PO SCH ×2 (09:32→20:30)
[2016-10-18] MEDS: METOPROLOL TARTRATE 25 MG TABLET PO SCH ×2 (09:33→20:31)
[2016-10-18] MEDS: ASPIRIN 81 MG TAB.CHEW PO SCH (09:34)
[2016-10-18] MEDS: CIPROFLOXACIN HCL 250 MG TABLET PO SCH ×2 (09:34→20:29)
[2016-10-18] MEDS: MULTIVITAMIN/IRON/FOLIC ACID 1 TAB TABLET PO SCH (09:35)
[2016-10-18] MEDS: LACTOBACILLUS ACIDOPHILUS 100 CAP BTL PO SCH ×2 (09:35→20:29)
[2016-10-18] MEDS: FLUTICASONE PROPIONATE 120 SPRAY INHALER NS SCH (09:36)
[2016-10-18] MEDS: MINERAL OIL/PETROLATUM,WHITE 454 APPL JAR TP SCH ×2 (09:36→20:30)
[2016-10-18] MEDS: FOLIC ACID 1 MG TABLET PO SCH (09:37)
[2016-10-18] MEDS: FUROSEMIDE 40 MG TABLET PO SCH (09:38)
[2016-10-18] MEDS: TOPIRAMATE 50 MG TABLET PO SCH ×2 (09:39→20:33)
[2016-10-18] MEDS: DORZOLAMIDE HCL 100 DROP BTL EACHEYE SCH ×3 (09:39→16:48)
[2016-10-18] MEDS: NITROGLYCERIN 0.4 MG TD SCH (09:39)
[2016-10-18] MEDS: NYSTATIN 15 APPL BTL TP SCH ×2 (09:40→20:30)
[2016-10-18] MEDS: PYRIDOSTIGMINE BROMIDE 60 MG TABLET PO SCH ×3 (09:41→16:48)
[2016-10-18] MEDS: INSULIN GLARGINE,HUM.REC.ANLOG 100 UNITS/ML VIAL SC SCH (09:52)
[2016-10-18] MEDS: CHOLECALCIFEROL 5,000 UNIT TABLET PO SCH (12:42)
[2016-10-18] MEDS: HYDROcodone/ACETAMINOPHEN 1 EACH TABLET PO PRN ×2 (14:36→20:27)
--- NOTE | 2016-10-18 15:13 | PN ---
Subjective - Date and Time Seen Date: 10/18/16 Time: 15:09 Subjective Narrative: Patient working with PT/OT. Somedays the patient does fine and at times wlaks only for a short distance. Still awaiting NH palcement. Objective - Review of Systems Generalized/Overall Review: Reports: Weakness. Denies: Chills, Fever EENTM: Reports: No Symptoms Reported Respiratory: Reports: Shortness of Breath. Denies: Cough, Orthopnea Cardiac: Reports: Edema. Denies: Chest Pain, Palpitations Abdominal: Denies: Nausea, Vomiting Genitourinary Symptoms: Denies: Urgency, Frequency Musculoskeletal Complaints: Reports: Joint Pain - Vitals Vitals: Last Vital Signs Temp 36.4 C L 10/18/16 14:13 Pulse 65 10/18/16 14:13 Resp 18 10/18/16 14:13 BP 166/65 10/18/16 14:13 Pulse Ox 96 10/18/16 14:13 - Abnormal Lab Findings Abnormal Lab Findings: Abnormal Lab Results 10/18/16 Range/Units 07:56 Carbon Dioxide 23.0 L (24-32.6) mmol/L Anion Gap 15.6 H (6.8-13.8) mmol/L BUN 36 H (6-23) mg/dL Creatinine 1.72 H (0.4-1.4) mg/dL Est GFR (Non-Af Amer) 49 L D (60-130) mL/min Random Glucose 155 H (70-110) mg/dL - Exam Constitutional: Present: Alert, Oriented x3, Cooperative, Elderly ENT Exam: Present: hard of hearing Neck: Present: supple Breasts: Present: Exam deferred Respiratory: Present: decreased breath sounds, No rales, No wheezing Cardiovascular/Chest: Present: regular rate, rhythm, no JVD, no murmur Abdomen: Present: Normal bowel sounds, soft, nontender, nondistended Extremity: Present: no calf tenderness, pedal edema Cauti Physician Documentation - Urinary Catheter Management Urethral (Alberts) Urethral Indwelling: No Date of Insertion: 10/08/16 Time of Insertion: 23:02 Date of Removal: 10/12/16 Time of Removal: 16:45 Assessment/Plan - Problems/Diagnosis (1) Acute exacerbation of CHF (congestive heart failure) Problem: Resolved Qualifiers: Congestive heart failure type: diastolic Qualified Code(s): I50.33 - Acute on chronic diastolic (congestive) heart failure (2) Generalized weakness Problem: Acute Narrative: working with PT/OT. variable performance likely due to his multiple medical probnlems- myasthenia/ CHF/deconditoning and stamina. (3) HTN (hypertension) Problem: Chronic Qualifiers: Hypertension type: essential hypertension Qualified Code(s): I10 - Essential (primary) hypertension (4) Myasthenia gravis Problem: Chronic (5) Mastoiditis Problem: Acute Qualifiers: Laterality: right Qualified Code(s): H70.91 - Unspecified mastoiditis, right ear Narrative: on Cipro (6) Nasopharyngeal mass Problem: Acute (7) Anemia Problem: Chronic Qualifiers: Anemia type: other cause Other causes of anemia: chronic disease, other Qualified Code(s): D63.8 - Anemia in other chronic diseases classified elsewhere (8) Chronic kidney disease, stage III (moderate) Problem: Chronic (9) 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 (14) Hyponatremia Problem: Resolved
[2016-10-18] MEDS: ROSUVASTATIN CALCIUM 10 MG TABLET PO SCH (20:28)
[2016-10-18] MEDS: BIMATOPROST 25 DROP BTL EACHEYE SCH (20:31)
[2016-10-18] MEDS: TERAZOSIN HCL 5 MG CAPSULE PO SCH (20:31)
[2016-10-18] MEDS: REMOVE PATCH 1 PATCH PATCH TP SCH (20:32)
[2016-10-18] MEDS: carBAMazepine 100 MG TAB.CHEW PO SCH (20:33)
[2016-10-18] MEDS: LATANOPROST 25 DROP BTL EACHEYE SCH (20:33)
[2016-10-19] MEDS: ACETAMINOPHEN 325 MG TABLET PO PRN ×2 (03:14→22:41)
--- NOTE | 2016-10-19 07:34 | PN ---
En Note - Interim Narrative: 10/19/16 07:33 Still awaiting NH laccortney. Will need his nasopharngeal mass addressed on outpatient basis.
[2016-10-19] MEDS: ENOXAPARIN SODIUM 30 MG/0.3 ML SYRG SC SCH (07:37)
[2016-10-19] MEDS: INSULIN LISPRO 100 UNITS/ML VIAL SC SCH ×3 (07:37→17:28)
[2016-10-19] MEDS: HYDROcodone/ACETAMINOPHEN 1 EACH TABLET PO PRN ×2 (07:39→17:26)
[2016-10-19] MEDS: hydrALAZINE HCL 25 MG TABLET PO SCH ×2 (08:51→20:10)
[2016-10-19] MEDS: LACTOBACILLUS ACIDOPHILUS 100 CAP BTL PO SCH ×2 (08:53→20:08)
[2016-10-19] MEDS: METOPROLOL TARTRATE 25 MG TABLET PO SCH ×2 (08:53→20:10)
[2016-10-19] MEDS: FOLIC ACID 1 MG TABLET PO SCH (08:53)
[2016-10-19] MEDS: ASPIRIN 81 MG TAB.CHEW PO SCH (08:53)
[2016-10-19] MEDS: CIPROFLOXACIN HCL 250 MG TABLET PO SCH ×2 (08:54→20:09)
[2016-10-19] MEDS: PYRIDOSTIGMINE BROMIDE 60 MG TABLET PO SCH ×3 (08:54→17:27)
[2016-10-19] MEDS: TOPIRAMATE 50 MG TABLET PO SCH ×2 (08:55→20:10)
[2016-10-19] MEDS: MULTIVITAMIN/IRON/FOLIC ACID 1 TAB TABLET PO SCH (08:55)
[2016-10-19] MEDS: FUROSEMIDE 40 MG TABLET PO SCH (08:55)
[2016-10-19] MEDS: MINERAL OIL/PETROLATUM,WHITE 454 APPL JAR TP SCH ×2 (08:56→20:09)
[2016-10-19] MEDS: NYSTATIN 15 APPL BTL TP SCH ×2 (08:56→20:10)
[2016-10-19] MEDS: FLUTICASONE PROPIONATE 120 SPRAY INHALER NS SCH (08:57)
[2016-10-19] MEDS: DORZOLAMIDE HCL 100 DROP BTL EACHEYE SCH ×3 (09:03→17:27)
[2016-10-19] MEDS: NITROGLYCERIN 0.4 MG TD SCH (09:04)
[2016-10-19] MEDS: INSULIN GLARGINE,HUM.REC.ANLOG 100 UNITS/ML VIAL SC SCH (09:07)
[2016-10-19] MEDS: CHOLECALCIFEROL 5,000 UNIT TABLET PO SCH (12:04)
--- NOTE | 2016-10-19 14:02 | PN ---
Subjective - Date and Time Seen Date: 10/19/16 Time: 13:58 Subjective Narrative: Still awaiting NH placement. He says he hears crackling sound in his right ear at times. Objective - Review of Systems Generalized/Overall Review: Reports: Weakness. Denies: Chills, Fever EENTM: Reports: No Symptoms Reported Respiratory: Reports: Shortness of Breath. Denies: Cough, Orthopnea Cardiac: Reports: Edema. Denies: Chest Pain, Palpitations Abdominal: Denies: Nausea, Vomiting Genitourinary Symptoms: Denies: Urgency, Frequency Musculoskeletal Complaints: Reports: Joint Pain - Vitals Vitals: Last Vital Signs Temp 36.4 C L 10/19/16 10:05 Pulse 62 10/19/16 10:05 Resp 16 10/19/16 10:05 BP 140/66 10/19/16 10:05 Pulse Ox 94 10/19/16 10:05 - Exam Constitutional: Present: Alert, Oriented x3, Cooperative, Morbidly obese ENT Exam: Present: hard of hearing Neck: Present: supple Respiratory: Present: chest non-tender Cardiovascular/Chest: Present: regular rate, rhythm, no JVD, no murmur Abdomen: Present: Normal bowel sounds, soft, nontender, nondistended Extremity: Present: no calf tenderness, pedal edema Cauti Physician Documentation - Urinary Catheter Management Urethral (Alberts) Urethral Indwelling: No Date of Insertion: 10/08/16 Time of Insertion: 23:02 Date of Removal: 10/12/16 Time of Removal: 16:45 Assessment/Plan - Problems/Diagnosis (1) Acute exacerbation of CHF (congestive heart failure) Problem: Resolved Qualifiers: Congestive heart failure type: diastolic Qualified Code(s): I50.33 - Acute on chronic diastolic (congestive) heart failure (2) Generalized weakness Problem: Acute Narrative: continue with PT/OT. awaiting NH palcement. (3) HTN (hypertension) Problem: Chronic Qualifiers: Hypertension type: essential hypertension Qualified Code(s): I10 - Essential (primary) hypertension (4) Myasthenia gravis Problem: Chronic (5) Mastoiditis Problem: Acute Qualifiers: Laterality: right Qualified Code(s): H70.91 - Unspecified mastoiditis, right ear Narrative: with OM. Had Ciprodex otic drops for pseudomonas infection. Will continue with oral cipro for another week for his mastoiditis. (6) Nasopharyngeal mass Problem: Acute Narrative: will need to be biopsied on outpatient basis. (7) Anemia Problem: Chronic Qualifiers: Anemia type: other cause Other causes of anemia: chronic disease, other Qualified Code(s): D63.8 - Anemia in other chronic diseases classified elsewhere Narrative: s/p BT (8) Chronic kidney disease, stage III (moderate) Problem: Chronic (9) 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 (14) Hyponatremia Problem: Resolved
[2016-10-19] MEDS: ROSUVASTATIN CALCIUM 10 MG TABLET PO SCH (20:08)
[2016-10-19] MEDS: TERAZOSIN HCL 5 MG CAPSULE PO SCH (20:09)
[2016-10-19] MEDS: carBAMazepine 100 MG TAB.CHEW PO SCH (20:10)
[2016-10-19] MEDS: LATANOPROST 25 DROP BTL EACHEYE SCH (20:11)
[2016-10-19] MEDS: BIMATOPROST 25 DROP BTL EACHEYE SCH (20:11)
[2016-10-19] MEDS: REMOVE PATCH 1 PATCH PATCH TP SCH (20:13)
--- NOTE | 2016-10-20 08:01 | PN ---
Subjective - Date and Time Seen Date: 10/20/16 Time: 07:52 Subjective Narrative: Patient is eager to go home. Still awaiting NH placement. Objective - Review of Systems Generalized/Overall Review: Reports: Weakness. Denies: Chills, Fever EENTM: Reports: No Symptoms Reported Respiratory: Reports: Shortness of Breath. Denies: Cough, Orthopnea Cardiac: Reports: Edema. Denies: Chest Pain, Palpitations Abdominal: Denies: Nausea, Vomiting Genitourinary Symptoms: Denies: Frequency, Hesitancy Musculoskeletal Complaints: Reports: Joint Pain - Vitals Vitals: Last Vital Signs Temp 36.7 C 10/20/16 06:01 Pulse 65 10/20/16 06:01 Resp 16 10/20/16 06:01 BP 174/64 10/20/16 06:01 Pulse Ox 96 10/20/16 06:01 - Exam Constitutional: Present: Alert, Oriented x3, Cooperative, Elderly ENT Exam: Present: hard of hearing Neck: Present: supple Respiratory: Present: decreased breath sounds, No rales, No wheezing Cardiovascular/Chest: Present: regular rate, rhythm, no JVD, no murmur Abdomen: Present: Normal bowel sounds, soft, nontender, nondistended Extremity: Present: no calf tenderness, pedal edema Cauti Physician Documentation - Urinary Catheter Management Urethral (Alberts) Urethral Indwelling: No Date of Insertion: 10/08/16 Time of Insertion: 23:02 Date of Removal: 10/12/16 Time of Removal: 16:45 Assessment/Plan - Problems/Diagnosis (1) Acute exacerbation of CHF (congestive heart failure) Problem: Resolved Qualifiers: Congestive heart failure type: diastolic Qualified Code(s): I50.33 - Acute on chronic diastolic (congestive) heart failure (2) Generalized weakness Problem: Acute Narrative: continue with PT/OT. I told the patient that his children is wanting him to be in a NH as they feel he is not safe at home due to his falls. He says he only fell once and he has 2 nurses who come to his house q daily. We are still awaiting approval for NH placement. He wants to go home. Will do a MMSE. (3) HTN (hypertension) Problem: Chronic Qualifiers: Hypertension type: essential hypertension Qualified Code(s): I10 - Essential (primary) hypertension (4) Myasthenia gravis Problem: Chronic (5) Mastoiditis Problem: Acute Qualifiers: Laterality: right Qualified Code(s): H70.91 - Unspecified mastoiditis, right ear (6) Nasopharyngeal mass Problem: Acute Narrative: I told him that he has a nasopharyngeal mass that ENT wants to biopsy on an outpatient basis. (7) Anemia Problem: Chronic Qualifiers: Anemia type: other cause Other causes of anemia: chronic disease, other Qualified Code(s): D63.8 - Anemia in other chronic diseases classified elsewhere (8) Chronic kidney disease, stage III (moderate) Problem: Chronic (9) 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 (14) Hyponatremia Problem: Resolved
[2016-10-20] MEDS: hydrALAZINE HCL 25 MG TABLET PO SCH ×3 (08:24→22:52)
[2016-10-20] MEDS: INSULIN LISPRO 100 UNITS/ML VIAL SC SCH ×3 (08:25→16:44)
[2016-10-20] MEDS: ENOXAPARIN SODIUM 30 MG/0.3 ML SYRG SC SCH (08:25)
[2016-10-20] MEDS: ASPIRIN 81 MG TAB.CHEW PO SCH (08:26)
[2016-10-20] MEDS: LACTOBACILLUS ACIDOPHILUS 100 CAP BTL PO SCH ×2 (08:26→20:32)
[2016-10-20] MEDS: CIPROFLOXACIN HCL 250 MG TABLET PO SCH ×2 (08:27→20:33)
[2016-10-20] MEDS: MULTIVITAMIN/IRON/FOLIC ACID 1 TAB TABLET PO SCH (08:27)
[2016-10-20] MEDS: CALCITRIOL 0.25 MCG CAPSULE PO SCH (08:27)
[2016-10-20] MEDS: MINERAL OIL/PETROLATUM,WHITE 454 APPL JAR TP SCH ×2 (08:28→20:35)
[2016-10-20] MEDS: FLUTICASONE PROPIONATE 120 SPRAY INHALER NS SCH (08:28)
[2016-10-20] MEDS: FOLIC ACID 1 MG TABLET PO SCH (08:29)
[2016-10-20] MEDS: INSULIN GLARGINE,HUM.REC.ANLOG 100 UNITS/ML VIAL SC SCH (08:30)
[2016-10-20] MEDS: FUROSEMIDE 40 MG TABLET PO SCH (08:31)
[2016-10-20] MEDS: METOPROLOL TARTRATE 25 MG TABLET PO SCH ×2 (08:31→20:34)
[2016-10-20] MEDS: PYRIDOSTIGMINE BROMIDE 60 MG TABLET PO SCH ×3 (08:32→16:43)
[2016-10-20] MEDS: TOPIRAMATE 50 MG TABLET PO SCH ×2 (08:32→20:37)
[2016-10-20] MEDS: NITROGLYCERIN 0.4 MG TD SCH (08:32)
[2016-10-20] MEDS: DORZOLAMIDE HCL 100 DROP BTL EACHEYE SCH ×3 (08:33→16:43)
[2016-10-20] MEDS: NYSTATIN 15 APPL BTL TP SCH ×2 (08:33→20:36)
[2016-10-20] MEDS: ACETAMINOPHEN 325 MG TABLET PO PRN (09:04)
[2016-10-20] MEDS: CHOLECALCIFEROL 5,000 UNIT TABLET PO SCH (11:56)
[2016-10-20] MEDS: ROSUVASTATIN CALCIUM 10 MG TABLET PO SCH (20:33)
[2016-10-20] MEDS: TERAZOSIN HCL 5 MG CAPSULE PO SCH (20:34)
[2016-10-20] MEDS: BIMATOPROST 25 DROP BTL EACHEYE SCH (20:35)
[2016-10-20] MEDS: carBAMazepine 100 MG TAB.CHEW PO SCH (20:38)
[2016-10-20] MEDS: LATANOPROST 25 DROP BTL EACHEYE SCH (20:38)
[2016-10-20] MEDS: REMOVE PATCH 1 PATCH PATCH TP SCH (20:41)
[2016-10-21 05:29] LABS: Hematocrit 30.4 % (42.0-52.0); Hemoglobin 9.6 gm/dL (13.5-18.0); Mean Cell Volume 88.6 fl (78-100); Mean Corpuscular Hgb Conc 31.6 g/dl (32-36); Mean Platelet Volume 9.5 fl (6.0-9.5); Neutrophil # 5.4 K/mm3 (1.3-6.0); Neutrophil % 70.1 % (42-75.0); Platelet Count 189 K/mm3 (150-450); Red Blood Count 3.43 M/mm3 (4.7-6.0); Red Cell Distribution Width 15.3 % (11.5-14.0); White Blood Count 7.8 K/mm3 (4.0-10.5)
[2016-10-21 05:33] LABS: Anion Gap 10.7 mmol/L (6.8-13.8); BUN/Creatinine Ratio 19.9 (9.0-21.6); Calcium * 9.1 mg/dL (7.9-10.9); Carbon Dioxide 26.5 mmol/L (24-32.6); Estimated Creat Clear 33.8; Potassium 4.2 mmol/L (3.4-4.6)
[2016-10-21] MEDS: hydrALAZINE HCL 25 MG TABLET PO SCH ×3 (06:21→23:03)
[2016-10-21] MEDS: INSULIN LISPRO 100 UNITS/ML VIAL SC SCH ×3 (06:22→17:29)
--- NOTE | 2016-10-21 08:16 | PN ---
En Note - Interim Narrative: 10/21/16 08:08 Discussed case with the daughter and son in law as well as with Maddie, his - they want him to be in the NH for PT/OT in [place] and they will be looking for an assited living for Maddie in that area. As per daughter , her sister was able to talk NH in [place] which is close to their place. I told them that Bienvenido was diagnosed with Mastoiditis/OM and a nasopharyngeal mass that needs to be biopsied but before that could be done he again got admitted for Acute CHF exacerbation and weakness. If they move up there , they need to establish with an ENT to care of that.
[2016-10-21] MEDS: ASPIRIN 81 MG TAB.CHEW PO SCH (08:34)
[2016-10-21] MEDS: ENOXAPARIN SODIUM 30 MG/0.3 ML SYRG SC SCH (08:34)
[2016-10-21] MEDS: TOPIRAMATE 50 MG TABLET PO SCH ×2 (08:35→20:50)
[2016-10-21] MEDS: METOPROLOL TARTRATE 25 MG TABLET PO SCH ×2 (08:35→20:49)
[2016-10-21] MEDS: CIPROFLOXACIN HCL 250 MG TABLET PO SCH ×2 (08:35→20:48)
[2016-10-21] MEDS: PYRIDOSTIGMINE BROMIDE 60 MG TABLET PO SCH ×3 (08:36→17:29)
[2016-10-21] MEDS: DORZOLAMIDE HCL 100 DROP BTL EACHEYE SCH ×3 (08:37→17:29)
[2016-10-21] MEDS: FUROSEMIDE 40 MG TABLET PO SCH (08:37)
[2016-10-21] MEDS: FOLIC ACID 1 MG TABLET PO SCH (08:37)
[2016-10-21] MEDS: FLUTICASONE PROPIONATE 120 SPRAY INHALER NS SCH (08:37)
[2016-10-21] MEDS: NITROGLYCERIN 0.4 MG TD SCH (08:38)
[2016-10-21] MEDS: NYSTATIN 15 APPL BTL TP SCH ×2 (08:38→20:44)
[2016-10-21] MEDS: MINERAL OIL/PETROLATUM,WHITE 454 APPL JAR TP SCH ×2 (08:39→20:44)
[2016-10-21] MEDS: LACTOBACILLUS ACIDOPHILUS 100 CAP BTL PO SCH ×2 (08:40→20:45)
[2016-10-21] MEDS: MULTIVITAMIN/IRON/FOLIC ACID 1 TAB TABLET PO SCH (08:40)
[2016-10-21] MEDS: INSULIN GLARGINE,HUM.REC.ANLOG 100 UNITS/ML VIAL SC SCH (08:41)
[2016-10-21] MEDS: CHOLECALCIFEROL 5,000 UNIT TABLET PO SCH (12:11)
--- NOTE | 2016-10-21 12:11 | PN ---
Subjective - Date and Time Seen Date: 10/21/16 Time: 12:04 Subjective Narrative: Patient says he is doing better. He is aware of the plan of going to a [place] but was worried about his until I told him that the family was going to look for an assisted living home in that area so they can be together. Objective - Review of Systems Generalized/Overall Review: Reports: Weakness. Denies: Chills, Fever EENTM: Denies: Ear Pain, Ear Discharge Respiratory: Denies: Shortness of Breath Cardiac: Denies: Chest Pain, Edema, Palpitations Abdominal: Denies: Nausea, Vomiting Genitourinary Symptoms: Denies: Urgency, Frequency Musculoskeletal Complaints: Reports: Joint Pain - Vitals Vitals: Last Vital Signs Temp 36.9 C 10/21/16 10:00 Pulse 69 10/21/16 10:00 Resp 18 10/21/16 10:00 BP 157/71 10/21/16 10:00 Pulse Ox 98 10/21/16 10:00 - Abnormal Lab Findings Abnormal Lab Findings: Abnormal Lab Results 10/21/16 10/21/16 Range/Units 05:20 05:20 RBC 3.43 L (4.7-6.0) M/mm3 Hgb 9.6 L (13.5-18.0) gm/dL Hct 30.4 L (42.0-52.0) % MCHC 31.6 L (32-36) g/dl RDW 15.3 H (11.5-14.0) % Lymphocytes % 15.9 L (20-51) % Monocytes % 11.4 H (0.0-9) % Lymphocytes # 1.2 L (1.5-3.5) k/mm3 BUN 33 H (6-23) mg/dL Creatinine 1.66 H (0.4-1.4) mg/dL Est GFR (Non-Af Amer) 51 L (60-130) mL/min Random Glucose 115 H (70-110) mg/dL - Exam Constitutional: Present: Alert, Oriented x3, Cooperative ENT Exam: Present: hard of hearing Neck: Present: supple Breasts: Present: Exam deferred Respiratory: Present: decreased breath sounds, No rales, No wheezing Cardiovascular/Chest: Present: regular rate, rhythm, no JVD, no murmur Abdomen: Present: Normal bowel sounds, soft, nontender, nondistended Extremity: Present: no calf tenderness, pedal edema Cauti Physician Documentation - Urinary Catheter Management Urethral (Alberts) Urethral Indwelling: No Date of Insertion: 10/08/16 Time of Insertion: 23:02 Date of Removal: 10/12/16 Time of Removal: 16:45 Assessment/Plan - Problems/Diagnosis (1) Acute exacerbation of CHF (congestive heart failure) Problem: Resolved Qualifiers: Congestive heart failure type: diastolic Qualified Code(s): I50.33 - Acute on chronic diastolic (congestive) heart failure Narrative: euvolemic at present (2) Generalized weakness Problem: Acute Narrative: continue with PT/OT. possible discharge tomorrow (3) HTN (hypertension) Problem: Chronic Qualifiers: Hypertension type: essential hypertension Qualified Code(s): I10 - Essential (primary) hypertension (4) Myasthenia gravis Problem: Chronic (5) Mastoiditis Problem: Acute Qualifiers: Laterality: right Qualified Code(s): H70.91 - Unspecified mastoiditis, right ear Narrative: will need to establish with a PCP and ENT once up there. (6) Nasopharyngeal mass Problem: Acute (7) Anemia Problem: Chronic Qualifiers: Anemia type: other cause Other causes of anemia: chronic disease, other Qualified Code(s): D63.8 - Anemia in other chronic diseases classified elsewhere (8) Chronic kidney disease, stage III (moderate) Problem: Chronic (9) 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 (14) Hyponatremia Problem: Resolved
[2016-10-21] MEDS: HYDROcodone/ACETAMINOPHEN 1 EACH TABLET PO PRN (19:36)
[2016-10-21] MEDS: REMOVE PATCH 1 PATCH PATCH TP SCH (20:47)
[2016-10-21] MEDS: ROSUVASTATIN CALCIUM 10 MG TABLET PO SCH (20:47)
[2016-10-21] MEDS: TERAZOSIN HCL 5 MG CAPSULE PO SCH (20:49)
[2016-10-21] MEDS: carBAMazepine 100 MG TAB.CHEW PO SCH (20:49)
[2016-10-21] MEDS: LATANOPROST 25 DROP BTL EACHEYE SCH (20:50)
[2016-10-21] MEDS: BIMATOPROST 25 DROP BTL EACHEYE SCH (20:51)
[2016-10-22] MEDS: HYDROcodone/ACETAMINOPHEN 1 EACH TABLET PO PRN (03:35)
[2016-10-22 06:44] VITALS: BP 162/65
[2016-10-22] MEDS ORDERED: hydrALAZINE HCL 50 MG TABLET PO SCH (07:15)
--- NOTE | 2016-10-22 07:39 | DS ---
(1) Acute exacerbation of CHF (congestive heart failure) Diagnosis(s): on Diuretic, BBlocker, ARB Problem: Resolved Qualifiers: Congestive heart failure type: diastolic Qualified Code(s): I50.33 - Acute on chronic diastolic (congestive) heart failure (2) Generalized weakness Diagnosis(s): PT/OT Problem: Acute (3) HTN (hypertension) Diagnosis(s): Diuretci, BBlocker, ARB, Vasodilator Problem: Chronic Qualifiers: Hypertension type: essential hypertension Qualified Code(s): I10 - Essential (primary) hypertension (4) Myasthenia gravis Diagnosis(s): on physistigmine Problem: Chronic (5) Mastoiditis Diagnosis(s): Cipro for 5 more days Problem: Acute Qualifiers: Laterality: right Qualified Code(s): H70.91 - Unspecified mastoiditis, right ear (6) Nasopharyngeal mass Diagnosis(s): ENT consult Problem: Acute (7) Anemia Diagnosis(s): s/p BT Problem: Chronic Qualifiers: Anemia type: other cause Other causes of anemia: chronic disease, other Qualified Code(s): D63.8 - Anemia in other chronic diseases classified elsewhere (8) Chronic kidney disease, stage III (moderate) Diagnosis(s): stable Problem: Chronic (9) Diabetes mellitus type 2 in obese Problem: Chronic (10) Hyperlipidemia Diagnosis(s): atorvastatin discontinued. he is already 89 years old Problem: Chronic Qualifiers: Hyperlipidemia type: mixed hyperlipidemia Qualified Code(s): E78.2 - Mixed hyperlipidemia (11) Hypertension Problem: Chronic Qualifiers: Hypertension type: essential hypertension Qualified Code(s): I10 - Essential (primary) hypertension (12) Seizures Diagnosis(s): on topamax and carbamazepine Problem: Chronic (13) Sleep apnea Problem: Chronic Qualifiers: Sleep apnea type: unspecified type Qualified Code(s): G47.30 - Sleep apnea , unspecified Description of Stay: Bienvenido Carver is a 89-yr-old AA Male with with PMH of:Anemia, CAD, Celiac Disease, CHF, CKD Stage IV, CVA, Depression, DM II, DVT, HLD, HTN, [place], Myasthenia Gravis, PVD, DANIEL, Osteoathritis & Seizures who was admitted on for generalized weakness and fall. . History was unobtainable from the pt due to memory impairment and no family was present at bedside. Pt's spouse, Maddie, was reached by phone, who relayed that pt had been very weak lately and prior to the last hospitalization on , he had fallen 3 times. On the day of admission, after waking up, he managed to walk only to the doorway and he fell forward. His head hit the floor, but the only complaint he had was RT ear pain, ' which has been going on for a while.' There was no loss of consciousness with the fall. She called the EMS and he was brought to the [facility] ED. She denied Mr. Carver having Fever, chills, n/v, SOB, bloody stools & Abdominal pain. She states that his weakness is causing a lot of burden caring for him at home as she is already aging. During evaluation at the ED, the Head CT obtained did not have any acute findings involving hemorrhaging/hematoma. The CBC showed he was Anemic with Hgb of 7.3. and BUN/CR was elevated at 38/ 2.64.His BNP was elevated at 1574 and the CXR showed Pulmonary vascular congestion consistent with fluid overload from CHF. Pt was admitted for acute CHF exacerbation, generalized weakness and falls. He was diuresed with IV Lasix. His cardiac and renal function improved. PT/OT has been working on him but they recommend further strengthening exercises in a NH facility. He was readmitted to the hospital before his nasopharyngeal mass could be worked up on outpatient basis. He will need to establish with ENT up in [place] for this. Procedures Performed: none Discharge Disposition: [facility] Disposition: Other health care facility Condition: Fair Discharge Diet: Consistent carbs, Low salt Discharge Level of Care:: ICF - Correction Correction Therapy: Physicial Therapy, Occupation Therapy Additional Patient Instructions (free text): F/U with ENT regarding Nasopharyngeal mass. Needs to establish with a local PCP and ENT. Call report to [facility] at . Fax orders to [phone]. Prescriptions (Any new or edited meds): Ciprofloxacin HCl [Cipro] 250 mg PO BID #10 tablet Losartan Potassium [Cozaar] 100 mg PO DAILY #30 tablet hydrALAZINE HCL [Apresoline] 50 mg PO Q8H #90 tablet Complete Home Medications List: Complete Home Medication List: Albuterol Sulfate [Ventolin Hfa] 1 puff IH Q4H PRN 04/16/14 Aspirin [Aspirin Chewable] 81 mg PO DAILY 04/16/14 Bimatoprost [Lumigan 0.03% Ophthalmic Solution] 1 drop EACHEYE QPM 04/16/14 Calcitriol 0.25 mcg PO 3XW 04/16/14 Dorzolamide HCl [Trusopt] 1 drop EACHEYE TID 04/16/14 Folic Acid 1 mg PO DAILY 04/16/14 Hydrocodone/Acetaminophen [Hydrocodon-Acetaminoph 7.5-325] 1 tab PO TID PRN Latanoprost [Xalatan] 1 drop EACHEYE HS 04/16/14 Metoprolol Tartrate [Lopressor] 12.5 mg PO BID 04/16/14 Multivitamin [Multi-Vitamin Daily] 1 each PO DAILY 04/16/14 Nitroglycerin [Nitroglycerin Patch] 0.4 mg TD QAM 04/16/14 Pyridostigmine [place] [Mestinon] 60 mg PO TID 04/16/14 Terazosin HCl 10 mg PO HS 04/16/14 Topiramate [Topamax] 50 mg PO BID 04/16/14 Bisacodyl [Dulcolax] 10 mg PO DAILY PRN #30 tablet 04/23/14 Cholecalciferol (Vitamin D3) [Vitamin D3] 1,000 unit PO DAILY #30 capsule Mineral Oil/Petrolatum,White [Eucerin] 1 appl TP BID 30 Days 04/23/14 Insulin Glargine,Hum.rec.anlog [Lantus Solostar] 12 unit SQ QAM 09/27/16 Insulin Lispro [Humalog Kwikpen U-100] 4 unit SQ QAM 09/27/16 Insulin Lispro [Humalog] 5 units SC BIDAC 09/27/16 Ipratropium/Albuterol Sulfate [Iprat-Albut 0.5-3(2.5) mg/3 ml] 3 ml IH QID PRN 09/27/16 Lactobacillus Acidophilus [Bacid] 250 mg PO BID 09/27/16 Carbamazepine [Carbatrol] 100 mg PO HS 10/04/16 Potassium Chloride [Klor-Con 10] 10 meq PO DAILY 10/04/16 Acetaminophen [Tylenol] 650 mg PO Q4H PRN 10/08/16 Ciprofloxacin HCl [Cipro] 250 mg PO BID #10 tablet 10/22/16 Losartan Potassium [Cozaar] 100 mg PO DAILY #30 tablet 10/22/16 hydrALAZINE HCL [Apresoline] 50 mg PO Q8H #90 tablet 10/22/16
[2016-10-22] MEDS: ENOXAPARIN SODIUM 30 MG/0.3 ML SYRG SC SCH (07:55)
[2016-10-22] MEDS: INSULIN LISPRO 100 UNITS/ML VIAL SC SCH (07:55)
[2016-10-22] MEDS: hydrALAZINE HCL 25 MG TABLET PO SCH (08:38)
[2016-10-22] MEDS: NITROGLYCERIN 0.4 MG TD SCH (08:39)
[2016-10-22] MEDS: METOPROLOL TARTRATE 25 MG TABLET PO SCH (08:40)
[2016-10-22] MEDS: MULTIVITAMIN/IRON/FOLIC ACID 1 TAB TABLET PO SCH (08:40)
[2016-10-22] MEDS: FUROSEMIDE 40 MG TABLET PO SCH (08:40)
[2016-10-22] MEDS: FOLIC ACID 1 MG TABLET PO SCH (08:40)
[2016-10-22] MEDS: TOPIRAMATE 50 MG TABLET PO SCH (08:40)
[2016-10-22] MEDS: PYRIDOSTIGMINE BROMIDE 60 MG TABLET PO SCH (08:41)
[2016-10-22] MEDS: ASPIRIN 81 MG TAB.CHEW PO SCH (08:41)
[2016-10-22] MEDS: CALCITRIOL 0.25 MCG CAPSULE PO SCH (08:41)
[2016-10-22] MEDS: CIPROFLOXACIN HCL 250 MG TABLET PO SCH (08:41)
[2016-10-22] MEDS: FLUTICASONE PROPIONATE 120 SPRAY INHALER NS SCH (08:42)
[2016-10-22] MEDS: LACTOBACILLUS ACIDOPHILUS 100 CAP BTL PO SCH (08:42)
[2016-10-22] MEDS: INSULIN GLARGINE,HUM.REC.ANLOG 100 UNITS/ML VIAL SC SCH (08:43)
[2016-10-22] MEDS: NYSTATIN 15 APPL BTL TP SCH (08:47)
[2016-10-22] MEDS: DORZOLAMIDE HCL 100 DROP BTL EACHEYE SCH (08:47)
[2016-10-22] MEDS: MINERAL OIL/PETROLATUM,WHITE 454 APPL JAR TP SCH (08:50)
[2016-10-22] MEDS ORDERED: LOSARTAN POTASSIUM 50 MG TABLET PO SCH (09:00)
== END 2016-10-22 09:00 | DRG 292 ==
LOC: ER 16:11 → MS 19:24 → OBSVTOIN 10-09 08:45
PROVIDERS: ADMIT Nurse Practitioner; ATTEND Internal Medicine
DX: I50.33 Acute on chronic diastolic (congestive) heart failure (principal); N18.4 Chronic kidney disease, stage 4 (severe); N17.9 Acute kidney failure, unspecified; E87.1 Hypo-osmolality and hyponatremia; J39.2 Other diseases of pharynx; H70.91 Unspecified mastoiditis, right ear; G70.00 Myasthenia gravis without (acute) exacerbation; R53.1 Weakness; I12.9 Hypertensive chronic kidney disease with stage 1 through stage 4 chronic kidney disease, or unspecified chronic kidney disease; D63.8 Anemia in other chronic diseases classified elsewhere; E11.9 Type 2 diabetes mellitus without complications; Z79.82 Long term (current) use of aspirin; Z79.4 Long term (current) use of insulin
CPT/HCPCS: 36415; 70450; 71010; 71020; 80048; 80053; 80061; 80076; 81001; 83605; 83880; 83930; 83935; 84145; 84300; 84443; 84484; 84550; 85014; 85018; 85025; 86140; 86850; 86900; 87040; 93005; 94660; 97110; 97116; 97162; 97165; 97530; 97535; 99283; G0378; J1756; P9016